=== PATIENT | female | born 1970 | race Caucasian/White ===

== ENCOUNTER → 2022-08-25 | Outpatient (CLI) | payer OTHER, SELFPAY ==
[2022-08-25 10:35] LABS: Hemoglobin A1c 6.6 % (3.8-5.6)
== END | disposition home or self-care (01) ==
LOC: LAB 09:38
PROVIDERS: PCP Family Medicine; Visit Provider Specialist
DX: E11.9 Type 2 diabetes mellitus without complications (principal)
CPT/HCPCS: 36415; 83036

== ENCOUNTER 2022-10-17 09:00 | Outpatient (RCR) | payer SELFPAY, OTHER ==
--- NOTE | 2022-08-28 10:49 | HP.PTEVAL_ITS ---
Patient's Visit Information SHIVA ZULUAGA is a 51 year old F referred to Physical Therapy by Dr. Joe Martinez MD with a diagnosis of R knee OA. Date of Evaluation: 08/28/22 Physical Therapist: Arnie Peralta DPT, OCS, CSCS - Visit Plan Frequency: 1x/Week Duration: 4-6 Weeks Plan: weekly(pt choice due to travel and cost) x 4-6 to progress HEP and ensure appropriate activity modificaiton. visit2: hs and quad stretches given for HEP and measure ROM R knee to ensure improvement, progress ROM and SLR as needed. visit 3 clamshells, bridges, core strength given as HEP and progress SLR with band or weight. visit 4 attempt WB ex and recheck. May use MH as needed, May do leg pull and mobs if needed. - Subjective R knee pain since November for no apparent reason. Pain 4/10 most of time. Worse with getting out of cahir after a while, and climbing steps. Has lots of steps at home and can do them with rail but they are painful. No other treatments, had xrays showed degeneration bone on bone. No scheduled surgery yet but she will likely need it. No regular exercises. Not employed. Does housework but it hurts and is slow. Is up at night intermittently with pain. Sleep - Pain R knee Pain Intensity (Out of 10): 4 Pain Intensity Range: 4, 7 - Objective R knee. Walks I with R antalgia [facility] bed I with UE. Steps are reciprocal up but pain R and needs rail. Descending uses L only due to pain. AROM R knee is -8 extension to 95 flexion and painful end ranges. L knee is 0-118. Strength hip is 3+ abd and ext and 4- flexion, no pain. ankle strength is 4/5 B. Knee strength is 3 R knee ext and painful and 3+ flexion with pain. L knee is 4. quad and HS and gastroc are max tight. - ant drawer and post sag. + bounce home adn patellar grind. - Balance/Special Test Scores Functional Gait Assessment Score: 28 % Disability: 6.6700 Lower Extremity Functional Score: 41 - Goals Goal 1:: 0-110 AROM to help with steps and gait Goal Time Frame: 4-6 Weeks Goal 2:: Patient feel pain 0-2/10 at worst and 60% better Goal Time Frame: 4-6 Weeks Goal 3:: LEFS score 50 Goal Time Frame: 4-6 Weeks Goal 4:: vaccuum without increased pain Goal Time Frame: 4-6 Weeks Goal 5:: I activitiy modificaitona nd ex to manage bone on bone condition Goal Time Frame: 4-6 Weeks - Rehabilitation Potential Physical Therapy Diagnosis: R knee OA and limtied ROM/strength. Rehabilitation Potential: Questionable - Anticipated Interventions Patient/Client Instruction: Educate patient on: Condition, Plan of Care For the Purpose of:: To decrease pain, To increase ROM, To improve muscle performance and motor function Therapeutic Exercise to Include: Strength training, Flexibilty training, Passive ROM, Active ROM For the Purpose of:: To decrease pain, To increase ROM, To improve muscle performance and motor function, To increase tolerance to activity/condition/position Thank you for the opportunity to evaluate your patient. For Medicare and Medicare HMO plans, please review the plan of care and approve it. It will need to be FAXED BACK to us at [phone] for Medicare purposes. For Medicare only, by signing this I certify the plan of care. Please let me know if there are questions or concerns regarding this plan of care. Physician Signature: Date:
--- NOTE | 2022-09-19 12:51 | HP.PTREVAL_ITS ---
Dr. Joe Martinez MD, It has been my pleasure to treat SHIVA ZULUAGA over the last 4 visits for R knee OA. Please see the progress note below for an update on the physical therapy plan of care! Subjective: Getting better, I can walk further without as much pain. Can walk a half mile before needs to sit. improving grocery trips. pain 5/10 with 30 mi nutes of walking but goes away in 5 minutes. Getting up is still stiff. Sleeping well. Nothing else scheduled with Dr. Martinez.Planning on TKA 11/26. Objective/Function: Walking well with mild antalgia today, since patient is scheduled for surgery, will need instruction on walker and steps etc. feels ready to continue via HEp for activity modificaiton stretch and strengthen. Plan Plan: f/u one month to ensure ex going well and pt to call prior if pain worsens. Will need wh walker instruct, stair instruct and final msmts in prep for surgery in November. Balance/Gait/Functional tests - Balance/Special Test Scores Functional Gait Assessment Score: 28 % Disability: 6.6700 Lower Extremity Functional Score: 50 Goals Goal 1:: 0-110 AROM to help with steps and gait Goal Time Frame: 4-6 Weeks Goal Progress: ? Goal 2:: Patient feel pain 0-2/10 at worst and 60% better Goal Time Frame: 4-6 Weeks Goal Progress: Goal Met Goal 3:: LEFS score 50 Goal Time Frame: 4-6 Weeks Goal Progress: Goal Met Goal 4:: vaccuum without increased pain Goal Time Frame: 4-6 Weeks Goal Progress: Goal Met Goal 5:: I activitiy modificaitona nd ex to manage bone on bone condition Goal Time Frame: 4-6 Weeks Goal Progress: Goal Met Goal 6:: I wh walker gait for surgery! Goal Time Frame: 4-6 Weeks Goal Progress: NEW GOALK for next sessio Anticipated Interventions Patient/Client Instruction: Educate patient on: Condition, Plan of Care For the Purpose of:: To decrease pain, To increase ROM, To improve muscle performance and motor function Therapeutic Exercise to Include: Strength training, Flexibilty training, Passive ROM, Active ROM For the Purpose of:: To decrease pain, To increase ROM, To improve muscle performance and motor function, To increase tolerance to activity/condition/position Please do not hesitate to contact me at [phone] by phone or if you have questions or concerns regarding this new plan of care! Sincerely, Arnie Peralta, DPT, OCS, CSCS
--- NOTE | 2022-10-17 09:28 | HP.PTDCSUM_ITS ---
It has been my pleasure to treat SHIVA ZULUAGA referred by Dr. Joe Martinez MD, with the diagnosis of R knee OA for a total of 5 visit(s). Discharge Date: 10/17/22 Please see the following information for a summary of their discharge status. Subjective: Knee doing pretty good. Exercises are going well and still challenged. Surgery is November 26. Pain in knee not bad lately, up to 2/10. Walking helps. No walker yet but will get one with wheels. No steps once she enters house. No questions or concerns for the next month. Activities pretty n ormal, just hurt at times...could not mow the lawn if she needed to. R knee Pain Intensity (Out of 10): Unrated % Improvement: 60 Objective/Function: Picked up on gait training very quickly and feels like she can practice a little at home and continue current exercises and get along well. Goal 1:: 0-110 AROM to help with steps and gait Goal Progress: Goal Met Goal 2:: Patient feel pain 0-2/10 at worst and 60% better Goal Progress: Goal Met Goal 3:: LEFS score 50 Goal Progress: Goal Met Goal 4:: vaccuum without increased pain Goal Progress: Goal Met Goal 5:: I activitiy modificaitona nd ex to manage bone on bone condition Goal Progress: Goal Met Goal 6:: I wh walker gait for surgery! Goal Progress: Goal Met Plan: d/c Discharge Comments: pt to have surgery in November If there are questions or concerns regarding this patient's physical therapy, please feel free to call me at [phone]. Thank you for the referral of this patient. Sincerely, Arnie Peralta, DPT, OCS, CSCS Balance/Gait/Functional tests - Balance/Special Test Scores Functional Gait Assessment Score: 28 % Disability: 6.6700 Lower Extremity Functional Score: 50
== END 2022-10-17 19:00 | disposition home or self-care (01) ==
LOC: PT 09:00
PROVIDERS: PCP Family Medicine; Referring Provider Specialist; Visit Provider Specialist
DX: M17.11 Unilateral primary osteoarthritis, right knee (principal); E66.01 Morbid (severe) obesity due to excess calories
CPT/HCPCS: 97110; 97161; 97530

== ENCOUNTER → 2022-11-17 | Outpatient (CLI) | payer OTHER, SELFPAY ==
--- NOTE | 2022-11-10 12:52 | HP.PCM_ITS ---
History and Physical History and Physical? Patient Name: Nohemi English : 1970 From:? JANY WOODS PA-C? DATE OF SURGERY:? 11/26/2022 SCHEDULED PROCEDURE:? Right total knee arthroplasty HISTORY OF PRESENT ILLNESS: Preoperative history and physical exam was performed on November 10, 2022.? This is a 51-year-old female who has been having ongoing pain for over 1 year with her right knee.? There is been no trauma or injury.? Her pain as being constant, aching, sharp, sore.? She has increased pain with going up and down stairs, walking, standing and sitting.? She does have start up pain.? Pain is increased with activities of daily living including any outside work such as mowing the lawn.? Patient states the pain occasionally wakes her at nighttime.? She has attempted conservative measures including rest and ice with no relief in symptoms.? She has tried heat and elevation with minimal relief.? She has tried home exercises with minimal relief.? She has tried acute care nurse practitioner without relief in symptoms.? She has tried [id number]-[id number] medications including topical ointments, anti-inflammatory supplements and Tylenol with minimal relief.? She has medical history pertinent for hypertension and type 2 diabetes mellitus.? She denies past history of surgery on the right knee.? After failing conservative measures and discussing treatment options with Dr. Joe Martinez, the patient does wish to proceed with a right total knee arthroplasty.? We are obtaining surgical clearance from the primary care physician.? She currently denies any recent chest pain, shortness of breath, fevers chills or recent infections.? Patient denies past history of DVT or pulmonary embolism. REVIEW OF SYSTEMS: Review Of Systems: Constitutional: Denies change in appetite, fever and weight change. Cardiovasular: Denies chest pain, heart murmur and irregular heartbeat. Respiratory: Denies cough, pneumonia, shortness of breath, tuberculosis and whe ezing. Gastrointestinal: Denies constipation, diarrhea, heartburn, nausea, rectal itching, bloody stools and vomiting. Musculoskeletal: Denies leg swelling, pain, trouble walking and weakness. Skin: Denies Raynaud's, history of shingles and tattoo. Neurological: Denies ambulatory dysfunction, dizziness, numbness/tingling and tremor. Psychiatric: Denies anxiety, insomnia and stress. Hematologic/Lymphatic: Denies anemia, bleeding/bruising tendency and past transfusion. Reviewed, no changes. PAST MEDICAL HISTORY: Advance Care Plan: No Advance Directives Effective Date: 08/25/2022 Past Medical History: Medical Problems: Diabetes, High Blood Pressure Accidents: None Surgical Hx: Gallbladder - (2006) [facility] ? Anesthesia Complications: None Assistive Devices: Glasses Reviewed and updated. SOCIAL HISTORY: Social History: Marital: .Occupation: Homemaker.Work Status: Currently Working.Hand Dominance: Right-handed. Personal Habits:? Cigarette Use: Never Smoked Cigarettes.Smokeless Tobacco: Never Used Smokeless Tobacco.E-Cigarette Use: Never used.Alcohol: Denies use.Drug Use: Denies Use.Enjoy Exercising: Exercises 1-3 X/Week. Reviewed, no changes. VITALS: Ht: 63 Wt: 228lb Wt k.421 BMI: 40.4 BP: 142/84 Pulse: 83 Resp: 16 T: 97.2 T: 36.2C Pain Level: 3 O2SatR: 98 ALLERGIES: No Known Drug Allergy? MEDICATIONS: Insulin Aspart 100 Unit/ML 10mL DAILY, Lisinopril 5 mg one tab PO once daily- PT unsure of correct dosage PRE-OP EXAM:? General appearance:NORMAL? ? ? Other: Eyes: Conjunctivae and lids: NORMAL? Pupils: ERR Ears, Nose, Mouth, and Throat: NORMAL? Other: Inspection of lips, teeth and gums: NORMAL? ?Other: Neck: Examination of neck: no masses noted. Respiratory: Assessment of respiratory effort: NORMAL? ?Other: ?Auscultation of lungs: clear to auscultation no wheezes, rhonchi or rales. Cardiovascular:? Auscultation of heart: regular rate and rhythm, no murmurs, gallops or rubs. PHYSICAL EXAMINATION: Right knee is without erythema or signs of infection.? Patient does walk with an antalgic gait.? There is tenderness to palpation along the medial joint line.? She has fixed varus alignment.? Moderate effusion.? Range of motion: Lacks 10 full extension to 90 flexion.? Sensation intact to light touch. IMAGING STUDIES: Previous x-rays of the right knee reveal varus alignment with medial joint space narrowing, subchondral sclerosis, osteophyte formation consistent with severe stage IV erosive right knee osteoarthritis. IMPRESSION: 1.? Severe right knee osteoarthritis with varus alignment 2.? Type 2 diabetes mellitus 3.? Hypertension PLAN: Dr. Joe Martinez did discuss and review with the patient all treatment options including surgical versus nonsurgical options.? Patient does wish to proceed with the above-stated procedure.? Potential risks, benefits, and complications of the procedure were discussed in detail including but not limited to , infection, nerve and blood vessel damage, persistent pain, numbness, tingling, paresthesias, blood clot, pulmonary embolism, and requirement for possible further surgery.? The patient expressed full understanding and has no further questions for the doctor.? Patient does agree to proceed with the above-stated procedure and has signed the surgery consent form. This dictation was created using voice recognition software. Phonetic and/or grammatical errors may exist. ___? I have re-examined the patient.? There are no clinical changes since date of exam. ___? See progress notes for changes. ___? Dictated on admission Date: ? ? ?Time: Signature:
--- NOTE | 2022-11-17 07:46 | EKG12_ITS ---
Test Reason : PRE-OP Blood Pressure : / mmHG Vent. Rate : 079 BPM Atrial Rate : 079 BPM P-R Int : 176 ms QRS Dur : 086 ms QT Int : 384 ms P-R-T Axes : 050 000 054 degrees QTc Int : 440 ms Normal sinus rhythm Normal ECG Confirmed by DELIA CABEZAS, ELIGIO ([id number]), story editor MILES HERNANDEZ ([id number]) on 11/19/2022 10:08:32 AM Referred By: ZENAIDA Confirmed By:MESSI LIN MD
[2022-11-17 10:10] LABS: Absolute Lymphocyte Count 3.08 X10^3/uL (0.83-4.51); Absolute Neutrophil Count 3.8 X10^3/uL (2.0-7.7); Basophil# 0.03 X10^3/uL; Basophil% 0.4 % (0-1); Eosinophil# 0.12 X10^3/uL; Eosinophils% 1.6 % (0-5); Hematocrit 41.4 % (37-47); Hemoglobin 13.6 g/dL (12.0-15.0); Lymphocyte # 3.08 X10^3/ul (0.83-4.51); Lymphocyte % 41.8 % (19-41); Mean Corp Hgb Conc 32.9 g/dL (32-36); Mean Corpuscular Hgb 28.8 pg (27.0-32.0); Mean Corpuscular Volume 87.7 fL (81-99); Mean Platelet Vol. 10.4 fl (6.2-12.0); Monocyte# 0.36 X10^3/uL; Monocyte% 4.9 % (0-10); NRBC Flagged by Analyzer 0 % (0-5); Neutrophil # 3.75 X10^3/uL (2.7-7.7); Platelet Count 301 K/mm3 (150-450); RBC Distribution Width CV 13.5 % (11.6-14.6); RBC Distribution Width SD 43.7 fl (35.1-43.9); Red Blood Count 4.72 M/mm3 (4.2-5.4); White Blood Count 7.4 K/mm3 (4.4-11.0)
[2022-11-17 10:58] LABS: Hemoglobin A1c 9.9 % (3.8-5.6)
[2022-11-17 11:00] LABS: Albumin, Serum 3.6 g/dL (3.2-5.0); Anion Gap 5 (5-15); BUN 21 mg/dL (7-18); Calcium,Total 9.4 mg/dL (8.5-10.1); Chloride 109 mmol/L (98-107); Creatinine, Serum 0.81 mg/dL (0.55-1.02); EST Glomerular Filtration Rate 79 mL/min (>60); Est Glom Filt Rate - Afr Amer 95 mL/min (>60); Glucose 245 mg/dL (74-106); Potassium 4.3 mmol/L (3.5-5.1); Sodium Level 139 mmol/L (136-145)
[2022-11-17 11:08] LABS: Magnesium 2.1 mg/dL (1.6-2.6)
== END | disposition home or self-care (01) ==
LOC: PAT 12-15 13:47
PROVIDERS: Anesthesiology; PCP Family Medicine; Visit Provider Specialist
DX: Z01.818 Encounter for other preprocedural examination (principal)
CPT/HCPCS: 36415; 80048; 82040; 83036; 83735; 85025; 87081; 93005

== ENCOUNTER → 2022-11-17 | Outpatient (CLI) | payer SELFPAY, OTHER ==
--- NOTE | 2022-11-17 07:43 | CT_ITS ---
PROCEDURE: CT LEFT KNEE WITHOUT CONTRAST REASON FOR EXAM: Male, 58 years old. Preoperative planning for the [employer] Robotic knee surgery. Knee pain. TECHNIQUE: Transaxial CT of the hip, knee and ankle were obtained. Coronal and sagittal reconstruction images of the knee were provided. Individualized dose optimization techniques were used for this CT. COMPARISON: None. FINDINGS: Standard protocol for the preoperative planning for the [employer] robotic knee surgery was performed. There is mild osteoarthrosis of the hip, knee and ankle. CT/Extremity Lower without Contra IMPRESSION: Preoperative [employer] Robotic knee surgical CT evaluation with findings as described above. Electronically Signed: Bryan Tellez, at 9:27 EDT ,
== END | disposition home or self-care (01) ==
PROVIDERS: PCP Family Medicine; Referring Provider Specialist; Visit Provider Specialist
DX: M21.161 Varus deformity, not elsewhere classified, right knee (principal)
CPT/HCPCS: 73700

== ENCOUNTER 2025-02-02 19:26 | Inpatient (IN) | payer OTHER, SELFPAY ==
[2025-02-02 18:36] VITALS: BP 165/72; PULSE 88; RESP 16; TEMP 39; O2SAT 96
--- OUTSIDE RECORDS SUMMARY | 2025-02-02 19:08 | XMS RPT_ITS | CCD ---
Author Organization [facility] Inform ion [facility] CliniSyny Care Team Providers Care Physician Relations Manager Name Role Phone BIANKA VOGEL Attending Unavailable BIANKA VOGEL Consulting Unavailable BIANKA VOGEL Primary Care Unavailable BIANKA VOGEL Admitting Unavailable PROVIDER, UNKNOWN Consulting Unavailable PROVIDER, UNKNOWN Consulting Unavailable PROVIDER, UNKNOWN Consulting Unavailable BIANKA VOGEL Consulting Unavailable JUN PALACIOS MD Attending Darielava ilJUN Dumont MD Primary Care Unava ilable JUN PALACIOS MD Admitting Unava ilable PROVIDER, UNKNOWN Consulting Unavailable PROVIDER, UNKNOWN Consulting Unavailable PROVIDER, UNKNOWN Consulting Unavailable Dr. Bianka Vogel Primary Care Provider Dr. Roberto Carlos Jay Attending Provider Dr. Joe Martinez Referring Provider [phone] Joe Martinez Attending Unavailable Joe Martinez Admitting Unavailable Bianka Vogel Primary Care Unavailable Joe Martinez Attending Unavailable Joe Martinez Referring Unavailable Bianka Vogel Primary Care Unavailable Joe Martinez Attending Unavailable Joe Martinez Referring Unavailable Bianka Vogel Primary Care Unavailable Joe Martinez Attending Unavailable Bianka Vogel Primary Care Unavailable Joe Martinez Referring Unavailable Bianka Vogel Primary Care Unavailable Roberto Carlos Jay Attending UnavailBianka Damon MD Unavailable Adi CARTWRIGHTN, Afsaneh Unavailable Brea CARTWRIGHTN, Alana Unavailable Unavailable Boo Sarmiento MD Unavailable Wendie Mensah PA-C Unavailable [phone] Alma Delia LANDON, Jodi Baker Unavailable Unavail able Hugh CARTWRIGHTN, Ping Unavailable Unavailable Alona FRANCOIS, Miles Unavailable Unavailable Elizabeth LANDON, Radha Villanueva Unavailable Unavailable Salma Breen LPN Unavailable Unavailabl e Unavailable Unavailable Nelida Cesar MA Unavailable Unavailable Medications Current Medications Medication Drug Class(es) Dates Sig (Normalized) Sig (Original) barley extract (2 sources) Non-Standardiz ed Food Allergenic Extract Start: 3 take 1 [tsp_us] by mouth once daily Barley Active 1 tsp SL/PO DAILY November 12, 2022 12:00am Curalin Glucose Support (2 sources) Start: 3 take 1 tablet by mouth once daily Curalin Glucose Support Active 1 TABLET SL/PO DAILY November 12, 2022 12:00am hydroCHLOROthiazide 12.5 mg oral tablet (11 sources) Thiazide Diuretic Start: 5 hydroCHLOROthiazide 12.5 mg tablet ; 1 (one) tablet qam for 0 days Quantity: 90 {Tablet} Refills: 3 Ordered: 25-Oct-2024 MD Bianka Vogel Start: 25-Oct-2024 3 ml insulin glargine 100 unt/ml pen injector (20 sources) Insulin Analog Start: 5 Lantus Solostar U-100 Insulin 100 unit/mL (3 mL) subcutaneous pen ; 80 units Solution Pen-injector daily for 0 days Quantity: 5 {Each} Refills: 0 Ordered: 27-Jan-2025 MD Bianka Vogel Start: 27-Jan-2025 Start: 11-21-2024 Lantus Solosta r U-100 Insulin 100 unit/mL (3 mL) subcutaneous pen ; 80 units Solution Pen-injector daily for 0 days Quantity: 5 {Each} Refills: 2 Ordered: 21-Nov-2024 MD Bianka Vogel Start: 21-Nov-2024 Start: 10-25-2024 Lantus Solosta r U-100 Insulin 100 unit/mL (3 mL) subcutaneous pen ; 80 units Solution Pen-injector daily for 0 days Quantity: 5 {Each} Refills: 3 Ordered: 25-Oct-2024 MD Bianka Vogel Start: 25-Oct-2024 Start: 08-19-2024 Lantus Solosta r U-100 Insulin 100 unit/mL (3 mL) subcutaneous pen ; 60 units Solution Pen-injector daily for 0 days Quantity: 5 {Each} Refills: 3 Ordered: 19-Aug-2024 MD Bianka Vogel Start: 19-Aug-2024 Start: 05-02-2024 Lantus Solosta r U-100 Insulin 100 unit/mL (3 mL) subcutaneous pen ; 60 units Solution Pen-injector daily for 0 days Quantity: 5 {Each} Refills: 3 Ordered: 02-May-2024 MD Bianka Vogel Start: 02-May-2024 Start: 04-19-2024 Lantus Solosta r U-100 Insulin 100 unit/mL (3 mL) subcutaneous pen ; 60 units Solution Pen-injector daily for 0 days Quantity: 5 {Each} Refills: 3 Ordered: 19-Apr-2024 MD Bianka Vogel Start: 19-Apr-2024 Start: 01-04-2024 Lantus Solosta r U-100 Insulin 100 unit/mL (3 mL) subcutaneous pen ; 60 units Solution Pen-injector daily for 0 days Quantity: 5 {Each} Refills: 3 Ordered: 04-Jan-2024 MD Bianka Vogel Start: 04-Jan-2024 Comments: dose change 12/03/2023 Start: 12-03-2023 Lantus Solosta r U-100 Insulin 100 unit/mL (3 mL) subcutaneous pen ; 60 units Solution Pen-injector daily for 0 days Quantity: 5 {Each} Refills: 3 Ordered: 03-Dec-2023 MD Bianka Vogel Start: 03-Dec-2023 Comments: dose change 12/03/2023 Start: 10-05-2023 Lantus Solosta r U-100 Insulin 100 unit/mL (3 mL) subcutaneous pen ; 50 units Solution Pen-injector daily for 0 days Quantity: 5 {Each} Refills: 3 Ordered: 05-Oct-2023 MD Bianka Vogel Start: 05-Oct-2023 Start: 08-24-2023 Lantus Solosta r U-100 Insulin 100 unit/mL (3 mL) subcutaneous pen ; 50 units Solution Pen-injector daily for 0 days Quantity: 5 {Each} Refills: 3 Ordered: 24-Aug-2023 MD Bianka Vogel Start: 24-Aug-2023 Start: 11-12-2022 Insulin Glargi ne Active 14 UNIT SC EVERY EVENING November 12, 2022 12:00am Comment on above: dose change 24 hr metoprolol succinate 50 mg extended release oral tablet (20 sources) beta-Adrenergic Brendan Start: 11-15-2024 metoprolol succinate ER 50 mg tablet,extended release 24 hr ; 1 (one) tablet daily for 0 days Quantity: 90 {Tablet} Refills: 0 Ordered: 15-Nov-2024 MD Bianka Vogel Start: 15-Nov-2024 Start: 08-08-2024 metoprolol suc cinate ER 50 mg tablet,extended release 24 hr ; 1 (one) tablet daily for 0 days Quantity: 90 {Tablet} Refills: 0 Ordered: 08-Aug-2024 MD Bianka Vogel Start: 08-Aug-2024 Start: 05-18-2024 metoprolol suc cinate ER 50 mg tablet,extended release 24 hr ; 1 (one) tablet daily for 0 days Quantity: 90 {Tablet} Refills: 0 Ordered: 18-May-2024 MD Bianka Vogel Start: 18-May-2024 Start: 02-05-2024 metoprolol suc cinate ER 50 mg tablet,extended release 24 hr ; 1 (one) tablet daily for 0 days Quantity: 90 {Tablet} Refills: 0 Ordered: 05-Feb-2024 MD Bianka Vogel Start: 05-Feb-2024 Start: 08-26-2023 metoprolol suc cinate ER 50 mg tablet,extended release 24 hr ; 1 (one) tablet daily for 0 days Quantity: 90 {Tablet} Refills: 1 Ordered: 26-Aug-2023 MD Bianka Vogel Start: 26-Aug-2023 Comments: med change due to kim cough. she will not need the lisinopril refill. Comment on above: med change due to ac e cough. she will not need the lisinopril refill. Completed/Discontinued Medications Medication Drug Class(es) Dates Sig (Normalized) Sig (Original) acetaminophen 650 mg / propoxyphene napsylate 100 mg oral tablet (20 sources) Opioid Agonist Start: 07-03-2010 End: 02-26-2016 take 1 tablet by mouth once daily as needed DARVOCET-N 100, 100-650MG (Oral Tablet) ; 1 (one) Tab four times daily, as needed for 0 days Quantity: 12 {Tabs} Refills: 0 Ordered: 03-Jul-2010 Start: 03-Jul-2010 End: 26-Feb-2016 Status: Discontinued Comments: Medication taken as needed. This order discontinued per [facility]. Comment on above: Medication taken as needed. This order discontinued per [facility]. amoxicillin 500 mg oral tablet (20 sources) Penicillin-class Antibacterial Start: 02-26-2016 End: 03-07-2016 take 1 tablet by mouth three times daily AMOXICILLIN, 500MG (Oral Tablet) ; 1 Tablet Tablet three times daily for 10 days Quantity: 30 {Tablet} Refills: 0 Ordered: 26-Feb-2016 PRISCILA Breen Start: 26-Feb-2016 End: 07-Mar-2016 Status: Inactive amoxicillin 875 mg / clavulanate 125 mg oral tablet (20 sources) Penicillin-class Antibacterial Start: 10-20-2019 End: 01-16-2020 take 1 tablet by mouth twice daily Amoxicillin-Pot Clavulanate 875-125 MG Oral Tablet ; 1 (one) Tablet bid for 0 days Quantity: 20 {Tablet} Refills: 0 Ordered: 16-Jan-2020 PRISCILA Joshi Start: 20-Oct-2019 End: 16-Jan-2020 Status: Inactive ciprofloxacin 500 mg oral tablet (20 sources) Quinolone Antimicrobial Ciprofloxacin HCl 500 MG Oral Tablet ; (500 MG) Status: Inactive codeine phosphate 2 mg/ml / promethazine hydrochloride 1.25 mg/ml oral solution (20 sources) Opioid Agonist, Phenothiazine Start: 10-24-2019 End: 01-16-2020 take 5 mL by mouth once daily at bedtime Promethazine-Codei ne 6.25-10 MG/5ML Oral Solution ; 5 Milliliter qhs for 0 days Quantity: 25 {Milliliter} Refills: 0 Ordered: 16-Jan-2020 PRISCILA Joshi Start: 24-Oct-2019 End: 16-Jan-2020 Status: Inactive hydrocortisone 10 mg/ml / neomycin 3.5 mg/ml / polymyxin b 24547 unt/ml otic solution (20 sources) Aminoglycoside Antibacterial, Polymyxin-class Antibacterial, Corticosteroid Start: 02-26-2016 End: 03-07-2016 CORTISPORIN, 3.5-84038-2 (Otic Solution) ; 4 Drop(s) Drop(s) four times daily for 10 days Quantity: 10 {Milliliter} Refills: 0 Ordered: 26-Feb-2016 PRISCILA Breenfer Start: 26-Feb-2016 End: 07-Mar-2016 Status: Inactive isopropyl alcohol 0.7 ml/ml medicated pad (20 sources) Easy Touch Alcoh ol Prep Medium 70 % Pad ; (70 %) Status: Inactive lisinopril 20 mg oral tablet (20 sources) Angiotensin Converting Enzyme Inhibitor Start: 04-27-2023 End: 07-11-2024 lisinopriL 20 mg tablet ; 1 (one) Tablet daily for 30 days Quantity: 30 {Tablet} Refills: 5 Ordered: 11-Jul-2024 PRISCILA Joshi Start: 27-Apr-2023 End: 11-Jul-2024 Status: Discontinued Start: 11-12-2022 take 20 mg by mouth once daily Lisinopril Active 20 MG PO DAILY November 12, 2022 12:00am Start: 02-23-2019 End: 09-01-2019 take 1 tablet by mouth once daily Lisinopril 10 MG Oral Tablet ; 1 (one) Tablet Tablet daily for 0 days Quantity: 30 {Tablet} Refills: 5 Ordered: 01-Sep-2019 PRISCILA Joshi Start: 23-Feb-2019 End: 01-Sep-2019 Status: Discontinued End: 07-24-2021 Lisinopril 5 MG Oral Tablet ; (5 MG) End: 24-Jul-2021 Status: Discontinued metFORMIN hydrochloride 1000 mg oral tablet (20 sources) Biguanide Start: 03-31-2019 End: 09-01-2019 take 1 tablet by mouth every twelve hours metFORMIN HCl 1000 MG Oral Tablet ; 1 (one) Tablet q12 hrs for 0 days Quantity: 60 {Tablet} Refills: 5 Ordered: 01-Sep-2019 PRISCILA Joshi Start: 31-Mar-2019 End: 01-Sep-2019 Status: Discontinued End: 07-24-2021 metFORMIN HCl 500 MG Oral Ta blet ; (500 MG) End: 24-Jul-2021 Status: Discontinued methylPREDNISolone 4 mg oral tablet (20 sources) Corticosteroid Start: 08-24-2017 End: 08-30-2017 Medrol 4 MG Oral Tablet Therapy Pack ; 1 Tab as directed for 6 days Quantity: 1 {Dose_Pack} Refills: 0 Ordered: 24-Aug-2017 LEWIS Mensah Start: 24-Aug-2017 End: 30-Aug-2017 Status: Inactive oxyCODONE hydrochloride 5 mg oral tablet (20 sources) Opioid Agonist Start: 01-28-2019 End: 03-31-2019 oxyCODONE HCl 5 MG Oral Tablet ; 1 (one) Tablet Tablet prn severe pain for 0 days Quantity: 6 {Tablet} Refills: 0 Ordered: 31-Mar-2019 PRISCILA Joshi Start: 28-Jan-2019 End: 31-Mar-2019 Status: Inactive semaglutide 3 mg oral tablet (18 sources) Start: 07-11-2024 End: 10-25-2024 semaglutide 3 mg tablet ; 1 (one) tablet daily for 0 days Quantity: 30 {Tablet} Refills: 3 Ordered: 25-Oct-2024 MD Bianka Vogel Start: 11-Jul-2024 End: 25-Oct-2024 Status: Inactive sulfamethoxazole 800 mg / trimethoprim 160 mg oral tablet (20 sources) Dihydrofolate Reductase Inhibitor Antibacterial, Sulfonamide Antimicrobial Start: 07-03-2010 End: 07-13-2010 take 1 tablet by mouth twice daily BACTRIM DS, 800-160MG (Oral Tablet) ; 1 Tab two times daily for 10 days Quantity: 20 {Tab} Refills: 0 Ordered: 03-Jul-2010 MD Bianka Vogel Start: 03-Jul-2010 End: 13-Jul-2010 Status: Inactive Problems Active Problems Problem Classification Problem Date Documented Date Episodic/Chronic Abdominal pain (20 sources) Left flank pain; Translations: [Unspecified abdominal pain] 02-23-2019 Episodic Chronic kidney disease (20 sources) Chronic kidney disease stage 3B ; Translations: [Chronic kidney disease, Stage III (moderate)] 04-10-2023 Chronic Comment on above: follows with nephboris porsha saw nephrology once, they said she did not need to come back unless she had problems (per her report) Diabetes mellitus with complications (20 sources) Diabetic peripheral neuropathy; Translations: [Type 2 diabetes mellitus with diabetic polyneuropathy] 04-10-2023 Chronic Diabetes mellitus without complication (20 sources) Type 2 diabetes mellitus without complications; Translations: [Diabetes mellitus] Onset: 09-07-2022 07-24-2021 Chronic Comment on above: Lantus Diabetes mellitus without complication (20 sources) Glycosuria; Translations: [Glycosuria] 01-28-2019 Episodic Diabetes mellitus without complication (20 sources) Diabetes mellitus without complication 10-23-2021 Essential hypertension (20 sources) Hypertensive disorder; Translations: [Essential (primary) hypertension] 04-10-2023 Chronic Comment on above: lisinopril, metoprol ol succinate metoprolol succinate Osteoarthritis (1 source) Unilateral primary osteoarthritis, right knee; Translations: [Unilateral primary osteoarthritis, right knee] Onset: 10-21-2022 Chronic Other acquired deformities (1 source) Varus deformity, not elsewhere classified, right knee; Translations: [Varus deformity, not elsewhere classified, right knee] Onset: 11-24-2022 Episodic Other aftercare (20 sources) Post-discharge follow-up; Translations: [Encounter for follow-up examination after completed treatment for conditions other than malignant neoplasm] 03-27-2021 Episodic Other complications of (20 sources) complications 09-01-2019 Episodic Comment on above: Gestational diabetes . Other ear and sense organ disorders (20 sources) Impacted cerumen of bilateral ears; Translations: [Impacted cerumen, bilateral] 09-17-2022 Episodic Other ear and sense organ disorders (20 sources) Impacted cerumen in right ear; Translations: [Impacted cerumen, right ear] 03-04-2016 Episodic Other lower respiratory disease (20 sources) Angiotensin-converti ng-enzyme inhibitor adverse reaction; Translations: [Cough] 08-26-2023 Episodic Other nervous system disorders (20 sources) Bilateral carpal tunnel syndrome; Translations: [Carpal tunnel syndrome, bilateral upper limbs] 04-10-2023 Chronic Other non-traumatic joint disorders (3 sources) Pain in right knee; Translations: [Pain in right knee] Onset: 03-21-2022 Episodic Other non-traumatic joint disorders (20 sources) Pain in unspecified knee; Translations: [Pain in joint, lower leg] 04-10-2023 Episodic Other nutritional; endocrine; and metabolic disorders (1 source) Morbid (severe) obesity due to excess calories; Translations: [Morbid (severe) obesity due to excess calories] Onset: 10-21-2022 Chronic Other nutritional; endocrine; and metabolic disorders (20 sources) Body mass index 30+ - obesity; Translations: [Body mass index (BMI) 36.0-36.9, adult] 10-23-2021 Chronic Other nutritional; endocrine; and metabolic disorders (20 sources) Nephrocalcinosis; Translations: [Other disorders of calcium metabolism] 04-10-2023 Chronic Other screening for suspected conditions (not mental disorders or infectious disease) (20 sources) Patient encounter status; Translations: [Encounter for screening for lipoid disorders] 10-25-2024 Episodic Other skin disorders (20 sources) Neck swelling; Translations: [Localized swelling, mass and lump, neck] 08-24-2017 Episodic Other upper respiratory infections (20 sources) Acute pharyngitis; Translations: [Acute pharyngitis, unspecified] 08-07-2010 Episodic Pneumonia (except that caused by tuberculosis or sexually transmitted disease) (20 sources) Community acquired pneumonia; Translations: [Pneumonia, unspecified organism] 10-20-2019 Episodic Residual codes; unclassified (20 sources) Immunization not carried out because of patient refusal; Translations: [Vaccination not carried out because of patient refusal] 07-24-2021 Episodic Residual codes; unclassified (20 sources) Influenza vaccination declined; Translations: [Immunization not carried out because of patient refusal] 04-10-2023 Episodic Residual codes; unclassified (20 sources) Noncompliance with medication regimen; Translations: [Personal history of noncompliance with medical treatment, presenting hazards to health] 04-10-2023 Episodic Residual codes; unclassified (20 sources) Non-smoker; Translations: [Other specified health status] 04-10-2023 Episodic Thyroid disorders (20 sources) Pain in thyroid; Translations: [Other specified disorders of thyroid] 08-24-2017 Episodic Unclassified (20 sources) Number of Children 09-01-2019 Comment on above: 4. Unclassified (20 sources) Number of Pregnancies 09-01-2019 Comment on above: 4. Unclassified (20 sources) Vaginal deliveries 09-01-2019 Comment on above: 4. Unclassified (20 sources) Follow up for multiple chronic conditions - The patient is here for follow-up of diabetes. The patient always takes the prescribed medications. No side effects noted. The patient has an active lifestyle but no regular exercise program. The patient's glucose levels are monitored daily. 04-10-2023 Unclassified (20 sources) Follow up for multiple chronic conditions - The patient is here for follow-up of diabetes. The patient always takes the prescribed medications. No side effects noted. The patient has an active lifestyle but no regular exercise program. The patient's glucose levels are monitored daily. Note for Multiple chronic conditions follow-up: -Had planned knee replacement that was cancelled due to sudden change in a1c level preventing the surgery. Is eating more salad and less sugar and PT helped enough that she walks more. 01-07-2023 Unclassified (20 sources) BS too high - Pt was scheduled for Right knee surgery With Dr. Martinez pt had lab s done 4. and A1c was 9.9they cancelled surgery due to thatpt said the only change was a bone vitamin she was takingher sugar has been running in the 300's for the last few months 11-28-2022 Unclassified (20 sources) Follow up for multiple chronic conditions - The patient is here for follow-up of diabetes. The patient always takes the prescribed medications. No side effects noted. The patient has an active lifestyle but no regular exercise program. The patient's glucose levels are monitored daily (checks right before lunch. IN past month is 240's and she does not know why). Note for Multiple chronic conditions follow-up: -has right knee pain and plans right knee replacement at [facility] in November. 09-17-2022 Unclassified (20 sources) Follow up from hospital stay - Name of Hospital: . Date of Admission: 03/19/2021. Date of Discharge: 03/21/2021. The patient was hospitalized for infection. Patient was discharged to home. Note for Follow up from hospital stay: -Started with tooth infection in February. Was on atb. Never recovered well and was not eating well. She became ill with a fever and went to ED again and discovered pyelonephritis. She also had a nosebleed that had to be cauterized and packed by ENT.She is seeing quality control scientist next week to help improve her diet and reduce her blood sugar. She wants to d/c the insulin as soon as she can. 03-27-2021 Unclassified (20 sources) Follow up for multiple chronic conditions - The patient is here for follow-up of diabetes. The patient usually takes the prescribed medications. No side effects noted (she did not take Lisinopril as she was not certain it was necessary). The patient has an active lifestyle but no regular exercise program. The patient's glucose levels are monitored on rare occasion (she bought a glucometer but it was difficult for her to use.) and out of office blood pressure checks occur rarely. The patient states that weight has decreased. 05-23-2019 Unclassified (20 sources) Follow up for multiple chronic conditions - The patient is here for follow-up of diabetes. The patient always takes the prescribed medications. No side effects noted. The patient has an active lifestyle but no regular exercise program. The patient's glucose levels are monitored on rare occasion, out of office blood pressure checks occur rarely and dietary compliance is good with close adherance to recommendations. The patient states that pain is generally stable, weight has increased, mood is unchanged, sleep patterns have improved and headaches have been noticed occasionally. The patient states that the disease has no overall impact. 02-23-2019 Unclassified (20 sources) Follow up for multiple chronic conditions - The patient is here for follow-up of diabetes. The patient always takes the prescribed medications. No side effects noted. The patient has an active lifestyle but no regular exercise program. The patient's glucose levels are monitored daily (before lunch). Note for Multiple chronic conditions follow-up: -Is following intermittent fasting. 08-26-2023 Unclassified (1 source) Follow up for multiple chronic conditions - The patient is here for follow-up of diabetes. The patient always takes the prescribed medications. No side effects noted. The patient has an active lifestyle but no regular exercise program. The patient's glucose levels are monitored daily (before lunch). Note for Multiple chronic conditions follow-up: -Is following intermittent fasting. MONA 6 months ago. 02-22-2024 Unclassified (20 sources) Follow up for multiple chronic conditions - The patient is here for follow-up of diabetes. The patient always takes the prescribed medications. No side effects noted. The patient has an active lifestyle but no regular exercise program. The patient's glucose levels are monitored daily (before lunch) and out of office blood pressure checks occur rarely. The patient states that weight has decreased. Note for Multiple chronic conditions follow-up: -Is following intermittent fasting. MONA 6 months ago. 02-22-2024 Unclassified (18 sources) Follow up for multiple chronic conditions - The patient is here for follow-up of diabetes. The patient always takes the prescribed medications. No side effects noted. The patient has an active lifestyle but no regular exercise program. The patient's glucose levels are monitored daily (before lunch) and out of office blood pressure checks occur rarely. The patient states that weight has decreased. Note for Multiple chronic conditions follow-up: -Is following intermittent fasting. States gets her insulin ready and she cannot verify the dosage. She took home a loaner bp cuff but it didn't work. I suspect the cuff was not the correct size for her arm.She did not know it was necessary for annual eye exam and has not scheduled. She tries to walk every other day but her right knee hurts and it is difficult to do. 07-11-2024 Unclassified (12 sources) Follow up for multiple chronic conditions - The patient is here for follow-up of diabetes. The patient always takes the prescribed medications. No side effects noted. The patient has an active lifestyle but no regular exercise program. The patient's glucose levels are monitored daily (before lunch) and out of office blood pressure checks occur rarely. The patient states that weight has decreased. Note for Multiple chronic conditions follow-up: -Is following [employer] Diet. States gets her insulin ready and she cannot verify the dosage. Her knee pain is bothering her. She could not afford the semeglutide pills. 10-25-2024 Urinary tract infections (20 sources) Pyelonephritis; Translations: [Tubulo-interstitial nephritis, not specified as acute or chronic] 03-27-2021 Episodic Past or Other Problems Problem Classification Problem Date Documented Da te Episodic/Chronic Unclassified (20 sources) Follow up for multiple chronic conditions - The patient is here for follow-up of diabetes. The patient has stopped the recommended medications (lisinopril makes her feel funny and she started a natural product in lieu of the metformin.). The patient has an active lifestyle but no regular exercise program. The patient's glucose levels are monitored several time(s) per day. The patient states that weight has increased. 07-24-2021 Unclassified (20 sources) Cold Symptoms - Symptoms include scratchy throat, dry cough, fever and general malaise. The onset was sudden 2 week(s) ago. The symptoms occur intermittently. The patient describes this as moderate in severity and worsening (was getting better). Current treatment includes rest, increased fluid intake, humidifier use and home remedies. Risk factors do not include smoking. The patient has been exposed to an individual with similar symptoms. 10-20-2019 Unclassified (20 sources) Follow up for multiple chronic conditions - The patient is here for follow-up of diabetes. The patient has stopped the recommended medications (is using AIM products). The patient has an active lifestyle but no regular exercise program. The patient's glucose levels are monitored on rare occasion (she bought a glucometer but it was difficult for her to use.) and out of office blood pressure checks occur rarely. The patient states that weight has decreased. 09-01-2019 Unclassified (20 sources) Abdominal pain - The onset of the abdominal pain has been sudden and has been occurring in a persistent pattern for 5 days. The pain is described as a mild dull ache. The pain is located in the left lower quadrant. The symptoms have no relieving factors. The symptoms have been associated with constipation, diarrhea and vaginal discharge, while the symptoms have not been associated with dysuria, fever or hematuria. 01-28-2019 Unclassified (20 sources) swelling in neck area - Pt. is here today with c/o swelling and redness in neck (frontal, and and laterally at times) with occasional ear discomfort. Pt. has been afebrile. Pt. c/o headache 3 days ago, which resolved with tylenol and motrin. Pt. c/o runny nose, but no other symptoms are noted. Pt. has not eaten anything unusual or different than her regular diet. Pt. states, I don't have a sore throat inside, it just feels swollen. Denies history of thyroid condition 08-24-2017 Unclassified (20 sources) ear recheck - patient is here for a recheck from 02/26/2016 impacted cerum of right ear. She was given amoxicillin and cortisporin. SHe said that she did have some drainage out of the ear. pain has fully resolved 03-04-2016 Unclassified (20 sources) Ear pain - The onset of the pain has been acute and has been occurring in a persistent pattern for 4 days. The course has been increasing. The pain is described as a moderate stabbing and plugged. The pain is described as being located in the external ear and in the inner ear. The pain is felt in the right ear. There has been no associated chills or fever. Note for Ear pain: she has no cold symptoms, no seasonal allergies. States she has had OE before and this is feeling that that 02-26-2016 Unclassified (20 sources) Sore Throat - The onset of the sore throat has been sudden and has been occurring in an increasing pattern for 3 days. The course has been worsening. The sore throat is described as severe. Symptoms include sore throat, fever and headache, but do not include runny nose, nasal congestion, cough or ear pain. The symptoms are aggravated by coughing, eating, swallowing and talking. Relieving factors include drinking liquids, throat lozenges and NSAIDs. Medical History dose not include seasonal allergies, recurrent sinusitis, recurrent strep pharyngitis or tonsillectomy. Note for Sore Throat: son at home has same symptoms, but not as severe. 07-03-2010 Results Test Name Value Interpretation Reference Range Facility ALBUMIN, RANDOM URINE W/CREA [facility] 10-26-2024 ALBUMIN, URINE 0.6 mg/dL Normal See Note: [facility] Comment on above: Result Comment: Refe rence Range: Reference Range Not established Performed By: #### 6 [id number] #### [facility] [address], [address] [place], [place] [id number] Profiling Machine Setup Operator: Bernard Holland MD ALBUMIN/CREATININE RATIO, RANDOM URINE 32 mg/g creat High <30 [facility] Comment on above: Result Comment: The ADA defines abnormalities in albumin excretion as follows: Albuminuria Category Result (mg/g creatinine) Normal to Mildly increased <30 Moderately increased 30-299 Severely increased > OR = 300 The ADA recommends that at least two of three specimens collected within a 3-6 month period be abnormal before considering a patient to be within a diagnostic category. Performed By: #### 6 517 #### [facility] [address], [address] [place], [place] [id number] Profiling Machine Setup Operator: Bernard Holland MD Creatinine (U) [Mass/Vol] 19 mg/dL Low 20-275 [facility] Comment on above: Performed By: #### 6 517 #### [facility] [place] [address], [address] [place] [address] Profiling Machine Setup Operator: Bernard Holland MD Laboratory - Chemistry and C hemistry - challengeon 10-25-2024 Creatinine (U) [Mass/Vol] 19 mg/dL Abnormal 20 - 275 mg/dL [facility], [facility].; [facility], [facility]. Laboratory - Hematology and Cell countson 10-25-2024 HbA1c (Bld) [Mass fraction] 9.3 % Abnormal 4.6 - 7.1 % [facility], [facility].; [facility], [facility]. No Panel Informationon 10-25 ALBUMIN, URINE 0.6 mg/dL Normal [facility], [facility].; [place] [employer] [facility] ALBUMIN/CREATININE RATIO, RANDOM URINE 32 {mg/g_creat} Abnormal [facility], [facility].; [place] [employer] [facility] Laboratory - Hematology and Cell countson 07-11-2024 HbA1c (Bld) [Mass fraction] 9.6 % Abnormal 4.6 - 7.1 % [facility], [facility].; [place] [employer] Laboratory - Hematology and Cell countson 02-22-2024 HbA1c (Bld) [Mass fraction] 8.7 % Abnormal 4.6 - 7.1 % [facility], [facility].; [employer] Laboratory - Hematology and Cell countson 12-02-2023 HbA1c (Bld) [Mass fraction] 9.3 % Abnormal 4.6 - 7.1 % [facility], [facility].; [employer] Laboratory - Chemistry and C hemistry - challengeon 08-26-2023 Albumin/Creatinine DL <= 20 mg/L (U) [Mass ratio] mg/g Normal [facility], [facility].; [place] [employer] Creatinine (U) [Mass/Vol] 50 mg/dL Normal [facility], [facility].; [place] [employer] Laboratory - Hematology and Cell countson 08-26-2023 HbA1c (Bld) [Mass fraction] 9.2 % Abnormal 4.6 - 7.1 % [facility], [facility].; [employer] Laboratory - Urinalysison Protein Ql (U) 100 mg/dL Abnormal [facility].; [facility]. Laboratory - Hematology and Cell countson 04-10-2023 HbA1c (Bld) [Mass fraction] 9.6 % Abnormal 4.6 - 7.1 % [facility]; [facility] Laboratory - Hematology and Cell countson 01-07-2023 HbA1c (Bld) [Mass fraction] 9.4 % Abnormal 4.6 - 7.1 % [facility]; [facility]. MRSA/SAID NASAL SCREENon MRSA+SAID SCRN Reason for Exam: PRE-OP PRE-OP MRSA MRSA Negative S. AUREUS S. aureus Negative Normal [facility] Comment on above: Performed By: #### L 500.2500, L501.9985, L100.0100, L501.1800, M100.651 #### [facility] Laboratory [address] [place], [place], [address] No Panel InformationOrdered By: Dr. Martinez on 11-18-2022 Nasal Screen MRSA/MSSA [facility] 12 Lead EKGon 11-17-2022 12 Lead EKG [facility] [address] [place] [address] 12 Lead EKG 11/17/22 0815 MR#: [id number] Acct: [id number] Name: MABEL ENGLISH Rep #: [id number] : 1970 51 From: Roberto Carlos Jay MD Attending Dr: Dr. Joe Martinez MD Status: PRE HIC Ordering Dr: Joe Martinez MD Date: 11/17/22 Location: [facility] Sex: F C Admitted: Test Reason : PRE-OP Blood Pressure : / mmHG Vent. Rate : 079 BPM Atrial Rate : 079 BPM P-R Int : 176 ms QRS Dur : 086 ms QT Int : 384 ms P-R-T Axes : 050 000 054 degrees QTc Int : 440 ms Normal sinus rhythm Normal ECG Confirmed by DELIA CABEZAS, ELIGIO ([id number]), editorial intern MILES HERNANDEZ ([id number]) on 11/19/2022 10:08:32 AM Referred By: ZENAIDA Confirmed By:MESSI JAY MD 11/19/22 1008 Date Roberto Carlos Jay MD CC: Dr. Bianka Vogel MD; Dr. Joe Martinez MD Signed Normal [facility] Absolute lymphocyte countOrd ered By: Dr. Martinez on 11-17-2022 Lymphocytes Auto (Unsp spec) [#/Vol] 3.08 10*3/uL 0.83-4.51 [facility] Basic Metabolic Profile (BMP )on 11-17-2022 BUN/CRE 26.0 RATIO High 10-20 [facility] Comment on above: Performed By: #### L 500.2500, L501.9985, L100.0100, L501.1800, M100.651 #### [facility] Laboratory [address] [place], [address] CA,Total 9.4 mg/dL Normal 8.5-10.1 [facility] Comment on above: Performed By: #### L 500.2500, L501.9985, L100.0100, L501.1800, M100.651 #### [facility] [address] [place], [address] EST GFR - AA 95 mL/min Normal >60 [facility] Comment on above: Result Comment: Afri can Liberian GFR Calc Performed By: #### L 500.2500, L501.9985, L100.0100, L501.1800, M100.651 #### [facility] [address] [place], [address] GAP 5 Normal 5-15 [facility] Comment on above: Performed By: #### L 500.2500, L501.9985, L100.0100, L501.1800, M100.651 #### [facility] [address] [place], [address] GFR/1.73 sq M.predicted among non-blacks MDRD (S/P/Bld) [Vol rate/Area] 79 mL/min/{1.73_m2} Normal >60 [facility] Comment on above: Result Comment: Non- GFR Calc Performed By: #### L 500.2500, L501.9985, L100.0100, L501.1800, M100.651 #### [facility] [address] [place], [address] Basic Metabolic Profile (BMP )Ordered By: Dr. Martinez on 11-17-2022 CO2 [Moles/Vol] 25.0 mmol/L Normal 21.0-32.0 [facility] Comment on above: Performed By: #### L 500.2500, L501.9985, L100.0100, L501.1800, M100.651 #### [facility] [address] [place], [address] Basophil percentageOrdered B y: Dr. Martinez on 11-17-2022 Basophils/100 WBC (Bld) 0.4 % 0-1 [facility] Chloride [Moles/Vol] 109 mmol/L High 98-107 [facility] Comment on above: Performed By: #### L 500.2500, L501.9985, L100.0100, L501.1800, M100.651 #### [facility] [address] [place], [address] Eosinophils/100 WBC (Bld) 1.6 % 0-5 [facility] Glucose [Mass/Vol] 245 mg/dL High 74-106 [facility] Comment on above: Glucose result great er than or equal to 200 mg/dLsuggests DIABETES MELLITUS per A.D.A. criteria. Result Comment: Gluc ose result greater than or equal to 200 mg/dL suggests DIABETES MELLITUS per A.D.A. criteria. Performed By: #### L 500.2500, L501.9985, L100.0100, L501.1800, M100.651 #### [facility] [address] [place], [address] Neutrophils (Bld) [#/Vol] 3.8 10*3/uL 2.0-7.7 [facility] Neutrophils/100 WBC (Bld) 51.0 % 47-70 [facility] Potassium [Moles/Vol] 4.3 mmol/L Normal 3.5-5.1 [facility] Comment on above: Performed By: #### L 500.2500, L501.9985, L100.0100, L501.1800, M100.651 #### [facility] [address] [place], [address] Sodium [Moles/Vol] 139 mmol/L Normal 136-145 [facility] Comment on above: Performed By: #### L 500.2500, L501.9985, L100.0100, L501.1800, M100.651 #### [facility] [address] [place], [address] WBC (Bld) [#/Vol] 7.4 10*3/uL 4.4-11.0 [facility] Blood erythrocytes count (nu mber/volume)Ordered By: Dr. Martinez on 11-17-2022 RBC (Bld) [#/Vol] 4.72 10*6/uL 4.2-5.4 [facility] Blood hemoglobin measurement (mass/volume)Ordered By: Dr. Martinez on 11-17-2022 Hemoglobin (Bld) [Mass/Vol] 13.6 g/dL 12.0-15.0 [facility] Blood lymphocytes/100 leukoc ytesOrdered By: Dr. Martinez on 11-17-2022 Lymphocytes/100 WBC (Bld) 41.8 % 19-41 [facility] Blood monocytes/100 leukocyt esOrdered By: Dr. Martinez on 11-17-2022 Monocytes/100 WBC (Bld) 4.9 % 0-10 [facility] Blood platelet mean volumeOr dered By: Dr. Martinez on 11-17-2022 Platelet mean volume (Bld) [Entitic vol] 10.4 fL 6.2-12.0 [facility] CBC W/Diff, Automatedon - Absolute Lymph 3.08 X10 3/uL Normal 0.83-4.51 [facility] Comment on above: Performed By: #### L 500.2500, L501.9985, L100.0100, L501.1800, M100.651 #### [facility] [address] [place], [address] Absolute Neut 3.8 X10 3/uL Normal 2.0-7.7 [facility] Comment on above: Performed By: #### L 500.2500, L501.9985, L100.0100, L501.1800, M100.651 #### [facility] [address] [place], [address] Basophils/100 WBC (Bld) 0.4 % Normal 0-1 [facility] Comment on above: Performed By: #### L 500.2500, L501.9985, L100.0100, L501.1800, M100.651 #### [facility] [address] [place], [address] Eosinophils/100 WBC (Bld) 1.6 % Normal 0-5 [facility] Comment on above: Performed By: #### L 500.2500, L501.9985, L100.0100, L501.1800, M100.651 #### [facility] [address] [place], [address] Erythrocyte distribution width (RBC) [Ratio] 13.5 % Normal 11.6-14.6 [facility] Comment on above: Performed By: #### L 500.2500, L501.9985, L100.0100, L501.1800, M100.651 #### [facility] [address] [place], [address] Hematocrit (Bld) [Volume fraction] 41.4 % Normal 37-47 [facility] Comment on above: Performed By: #### L 500.2500, L501.9985, L100.0100, L501.1800, M100.651 #### [facility] [address] [place], [address] Hemoglobin (Bld) [Mass/Vol] 13.6 g/dL Normal 12.0-15.0 [facility] Comment on above: Performed By: #### L 500.2500, L501.9985, L100.0100, L501.1800, M100.651 #### [facility] [address] [place], [address] IG% 0.300 Normal 0.0-0.9 [facility] Comment on above: Result Comment: IG% - Immature Granulocytes (promyelocytes, myelocytes and metamyelocytes) > 1% indicates that a LEFT SHIFT is Present. Performed By: #### L 500.2500, L501.9985, L100.0100, L501.1800, M100.651 #### [facility] [address] [place], [address] Lymphocytes/100 WBC (Bld) 41.8 % High 19-41 [facility] Comment on above: Performed By: #### L 500.2500, L501.9985, L100.0100, L501.1800, M100.651 #### [facility] [address] [place], [address] MCH (RBC) [Entitic mass] 28.8 pg Normal 27.0-32.0 [facility] Comment on above: Performed By: #### L 500.2500, L501.9985, L100.0100, L501.1800, M100.651 #### [facility] [address] [place], [address] MCHC (RBC) [Mass/Vol] 32.9 g/dL Normal 32-36 [facility] Comment on above: Performed By: #### L 500.2500, L501.9985, L100.0100, L501.1800, M100.651 #### [facility] [address] [place], [address] MCV (RBC) [Entitic vol] 87.7 fL Normal 81-99 [facility] Comment on above: Performed By: #### L 500.2500, L501.9985, L100.0100, L501.1800, M100.651 #### [facility] [address] [place], [address] Monocytes/100 WBC (Bld) 4.9 % Normal 0-10 [facility] Comment on above: Performed By: #### L 500.2500, L501.9985, L100.0100, L501.1800, M100.651 #### [facility] [address] [place], [address] Neutrophils/100 WBC (Bld) 51.0 % Normal 47-70 [facility] Comment on above: Performed By: #### L 500.2500, L501.9985, L100.0100, L501.1800, M100.651 #### [facility] [address] [place], [address] Nucleated RBC (Bld) [#/Vol] 0 10*3/uL Normal 0-5 [facility] Comment on above: Performed By: #### L 500.2500, L501.9985, L100.0100, L501.1800, M100.651 #### [facility] [address] [place], [address] Platelet mean volume (Bld) [Entitic vol] 10.4 fL Normal 6.2-12.0 [facility] Comment on above: Performed By: #### L 500.2500, L501.9985, L100.0100, L501.1800, M100.651 #### [facility] [address] [place], [address] Platelets (Bld) [#/Vol] 301 10*3/uL Normal 150-450 [facility] Comment on above: Performed By: #### L 500.2500, L501.9985, L100.0100, L501.1800, M100.651 #### [facility] [address] [place], [address] RBC (Bld) [#/Vol] 4.72 10*6/uL Normal 4.2-5.4 [facility] Comment on above: Performed By: #### L 500.2500, L501.9985, L100.0100, L501.1800, M100.651 #### [facility] [address] [place], [address] RDW SD 43.7 fl Normal 35.1-43.9 [facility] Comment on above: Performed By: #### L 500.2500, L501.9985, L100.0100, L501.1800, M100.651 #### [facility] [address] [place], [address] WBC (Bld) [#/Vol] 7.4 10*3/uL Normal 4.4-11.0 [facility] Comment on above: Performed By: #### L 500.2500, L501.9985, L100.0100, L501.1800, M100.651 #### [facility] [address] [place], [address] Determination of erythrocyte mean corpuscular volume (MCV)Ordered By: Dr. Martinez on 11-17-2022 MCV (RBC) [Entitic vol] 87.7 fL 81-99 [facility] Extremity Lower without Cont raon 11-17-2022 Extremity Lower without Contra [facility] Imaging Services [address] [place] [address] Extremity Lower without Contra MR#: [id number] Acct: [id number] Name: MABEL ENGLISH Rep #: [id number] : 1970 F 51 From: Bryan Tellez MD PCP: Dr. Bianka Vogel MD Status: REG CLI Study: Extremity Lower without Contra Date of Exam: 0 11/17/22 Exam# [id number] Ordering Dr: Joe Martinez MD PROCEDURE: CT LEFT KNEE WITHOUT CONTRAST REASON FOR EXAM: Male, 58 years old. Preoperative planning for the [employer] Robotic knee surgery. Knee pain. TECHNIQUE: Transaxial CT of the hip, knee and ankle were obtained. Coronal and sagittal reconstruction images of the knee were provided. Individualized dose optimization techniques were used for this CT. COMPARISON: None. FINDINGS: Standard protocol for the preoperative planning for the [employer] robotic knee surgery was performed. There is mild osteoarthrosis of the hip, knee and ankle. CT/Extremity Lower without Contra IMPRESSION: Preoperative [employer]otic knee surgical CT evaluation with findings as described above. Electronically Signed: Bryan Tellez, at 9:27 EDT , CC: Dr. Bianka Vogel MD; Dr. Joe Martinez MD Ammonia Distiller: Signed Normal [facility] Hematocrit Auto (Bld) [Volum e fraction]Ordered By: Dr. Martinez on 11-17-2022 Hematocrit (Bld) [Volume fraction] 41.4 % 37-47 [facility] Hemoglobin A1con 11-17-2022 HbA1c (Bld) [Mass fraction] 9.9 % High 3.8-5.6 [facility] Comment on above: Result Comment: Norm al < 5.7 % Prediabetic 5.7 - 6.4 % Diabetic >or= 6.5 % Please note range changes. Performed By: #### L 500.2500, L501.9985, L100.0100, L501.1800, M100.651 #### [facility] [address] [place], [place], [id number] Laboratory - Chemistry and C hemistry - challengeOrdered By: Dr. Coon on 11-17-2022 Magnesium [Mass/Vol] 2.1 mg/dL 1.6-2.6 [facility] Laboratory - Chemistry and C hemistry - challengeOrdered By: Dr. Martinez on 11-17-2022 Urea nitrogen/Creatinine [Mass ratio] 26.0 mg/mg 10-20 [facility] Laboratory - Hematology and Cell countsOrdered By: Dr. Martinez on 11-17-2022 Erythrocyte distribution width (RBC) [Entitic vol] 43.7 fL 35.1-43.9 [facility] Erythrocyte distribution width (RBC) [Ratio] 13.5 % 11.6-14.6 [facility] Immature granulocytes/100 WBC (Bld) 0.300 % 0.0-0.9 [facility] Comment on above: IG% - Immature Granu locytes (promyelocytes, myelocytes and metamyelocytes) > 1% indicates that a LEFT SHIFT is Present. MCH (RBC) [Entitic mass] 28.8 pg 27.0-32.0 [facility] Nucleated RBC/100 WBC (Bld) [Ratio] 0 % 0-5 [facility] MCHC Auto (RBC) [Mass/Vol]Or dered By: Dr. Martinez on 11-17-2022 MCHC (RBC) [Mass/Vol] 32.9 g/dL 32-36 [facility] Magnesiumon 11-17-2022 Magnesium [Mass/Vol] 2.1 mg/dL Normal 1.6-2.6 [facility] Comment on above: Performed By: #### L 501.5200 #### [facility] [address] [place], [address] No Panel InformationOrdered By: Dr. Martinez on 11-17-2022 Estimated GFR (MDRD) Amer 95 mL/min >60 [facility] Comment on above: GFR Calc Estimated GFR (MDRD) Non-Af Amer 79 mL/min >60 [facility] Comment on above: Non- GFR Calc Platelets bldOrdered By: Dr. Martinez on 11-17-2022 Platelets (Bld) [#/Vol] 301 10*3/uL 150-450 [facility] Serum or plasma albumin carlos urement (mass/volume)Ordered By: Dr. Martinez on 11-17-2022 Albumin [Mass/Vol] 3.6 g/dL Normal 3.2-5.0 [facility] Comment on above: Performed By: #### L 500.2500, L501.9985, L100.0100, L501.1800, M100.651 #### [facility] [address] [place], [address] Serum or plasma calcium carlos urement (mass/volume)Ordered By: Dr. Martinez on 11-17-2022 Calcium [Mass/Vol] 9.4 mg/dL 8.5-10.1 [facility] Serum or plasma creatinine m easurement (mass/volume)Ordered By: Dr. Martinez on 11-17-2022 Creatinine [Mass/Vol] 0.81 mg/dL Normal 0.55-1.02 [facility] Comment on above: The validity of the calculated GFR & GFRAA in patients over 70 years has not been determined. Clinical correlation is essential. Result Comment: The validity of the calculated GFR GFRAA in patients over 70 years has not been determined. Clinical correlation is essential. Performed By: #### L 500.2500, L501.9985, L100.0100, L501.1800, M100.651 #### [facility] [address] [place], [address] Serum or plasma urea nitroge n measurement (mass/volume)Ordered By: Dr. Martinez on 11-17-2022 Urea nitrogen [Mass/Vol] 21 mg/dL High 7-18 [facility] Comment on above: Performed By: #### L 500.2500, L501.9985, L100.0100, L501.1800, M100.651 #### [facility] [address] [place], [address] Thin prep Papanicolaou smear with manual screeningOrdered By: Dr. Martinez on 11-17-2022 Thin prep Papanicolaou smear with manual screening 5 5-15 [facility] Whole blood hemoglobin A1c/t otal hemoglobin ratio (mass fraction)Ordered By: Dr. Martinez on 11-17-2022 HbA1c (Bld) [Mass fraction] 9.9 % 3.8-5.6 [facility] Comment on above: Normal < 5.7 % Predi abetic 5.7 - 6.4 % Diabetic >or= 6.5 % Please note range changes. PT D/C Summary (1)on 023 PT D/C Summary (1) [facility] Physical Therapy [facility] [facility]. [address] [place] [address] / REHABILITATION SERVICES DISCHARGE SUMMARY MR#: [id number] Acct: [id number] Name: NOHEMI ENGLISH Rep #: [id number] : 1970 51 From: Arnie Peralta DPT, OCS, CSCS Referring Dr.: Dr. Joe Martinez MD Status: RE G RCR Insurance: [facility] PACKAGE PLAN [facility] [employer] It has been my pleasure to treat NOHEMI ENGLISH referred by Dr. Joe Martinez MD, with the diagnosis of R knee OA for a total of 5 visit(s). Discharge Date: 10/17/22 Please see the following information for a summary of their discharge status. Subjective: Knee doing pretty good. Exercises are going well and still challenged. Surgery is November 26. Pain in knee not bad lately, up to 2/10. Walking helps. No walker yet but will get one with wheels. No steps once she enters house. No questions or concerns for the next month. Activities pretty normal, just hurt at times...could not mow the lawn if she needed to. R knee Pain Intensity (Out of 10): Unrated % Improvement: 60 Objective/Function: Picked up on gait training very quickly and feels like she can practice a little at home and continue current exercises and get along well. Goal 1:: 0-110 AROM to help with steps and gait Goal Progress: Goal Met Goal 2:: Patient feel pain 0-2/10 at worst and 60% better Goal Progress: Goal Met Goal 3:: LEFS score 50 Goal Progress: Goal Met Goal 4:: vaccuum without increased pain Goal Progress: Goal Met Goal 5:: I activitiy modificaitona nd ex to manage bone on bone condition Goal Progress: Goal Met Goal 6:: I wh walker gait for surgery! Goal Progress: Goal Met Plan: d/c Discharge Comments: pt to have surgery in November If there are questions or concerns regarding this patient's physical therapy, please feel free to call me at [phone]. Thank you for the referral of this patient. Sincerely, Arnie Peralta DPT, OCS, CSCS Balance/Gait/Functi onal tests - Balance/Special Test Scores Functional Gait Assessment Score: 28 % Disability: 6.6700 Lower Extremity Functional Score: 50 10/17/22 0928 CC: Dr. Bianka Vogel MD; Dr. Joe Martinez MD EBG Signed Normal [facility] Re-Evaluation - PT (1)on Re-Evaluation - PT (1) [facility] Physical Therapy [facility] [address] [place] [address]. [address] [place] [address] / REEVALUATION / MEDICARE RECERTIFICATION PHYSICAL THERAPY MR#: [id number] Acct: [id number] Name: NOHEMI ENGLISH Rep #: [id number] : 1970 51 From: Arnie Peralta DPT, OCS, CSCS Referring Dr.: Dr. Joe Martinez MD Status:REG RCR Insurance: [facility] PACKAGE PLAN [facility] [employer] Dr. Joe Martinez MD, It has been my pleasure to treat NOHEMI ENGLISH over the last 4 visits for R knee OA. Please see the progress note below for an update on the physical therapy plan of care! Subjective: Getting better, I can walk further without as much pain. Can walk a half mile before needs to sit. improving grocery trips. pain 5/10 with 30 minutes of walking but goes away in 5 minutes. Getting up is still stiff. Sleeping well. Nothing else scheduled with Dr. Martinez.Planning on TKA 11/26. Objective/Function: Walking well with mild antalgia today, since patient is scheduled for surgery, will need instruction on walker and steps etc. feels ready to continue via HEp for activity modificaiton stretch and strengthen. Plan Plan: f/u one month to ensure ex going well and pt to call prior if pain worsens. Will need walker instruct, stair instruct and final msmts in prep for surgery in November. Balance/Gait/Functi onal tests - Balance/Special Test Scores Functional Gait Assessment Score: 28 % Disability: 6.6700 Lower Extremity Functional Score: 50 Goals Goal 1:: 0-110 AROM to help with steps and gait Goal Time Frame: 4-6 Weeks Goal Progress: ? Goal 2:: Patient feel pain 0-2/10 at worst and 60% better Goal Time Frame: 4-6 Weeks Goal Progress: Goal Met Goal 3:: LEFS score 50 Goal Time Frame: 4-6 Weeks Goal Progress: Goal Met Goal 4:: vaccuum without increased pain Goal Time Frame: 4-6 Weeks Goal Progress: Goal Met Goal 5:: I activitiy modificaitona nd ex to manage bone on bone condition Goal Time Frame: 4-6 Weeks Goal Progress: Goal Met Goal 6:: I wh walker gait for surgery! Goal Time Frame: 4-6 Weeks Goal Progress: NEW GOALK for next sessio Anticipated Interventions Patient/Client Instruction: Educate patient on: Condition, Plan of Care For the Purpose of:: To decrease pain, To increase ROM, To improve muscle performance and motor function Therapeutic Exercise to Include: Strength training, Flexibilty training, Passive ROM, Active ROM For the Purpose of:: To decrease pain, To increase ROM, To improve muscle performance and motor function, To increase tolerance to activity/condition/ position Please do not hesitate to contact me at [phone] by phone or if you have questions or concerns regarding this new plan of care! Sincerely, Arnie Peralta, DPT, OCS, CSCS 09/19/22 1251 CC: Dr. Bianka Vogel MD; Dr. Joe Martinez MD EBG Signed For Medicare only, by signing this I certify the plan of care. _ Physicians Signature Date Normal [facility] Inital Evaluation (1) - PTon 08-28-2022 Inital Evaluation (1) - PT [facility] Physical Therapy [facility] [address] [place] [address] / REHABILITATION SERVICES INITIAL EVALUATION MR#: [id number] Acct: [id number] Name: NOHEMI ENGLISH Rep #: [id number] : 1970 51 From: Arnie Peralta DPT, OCS, CSCS Referring Dr.: Dr. Joe Martinez MD Status: RE G RCR Insurance: [employer] SELF PAY INSURANCE Patient's Visit Information NOHEMI ENGLISH is a 51 year old F referred to Physical Therapy by Dr. Joe Martinez MD with a diagnosis of R knee OA. Date of Evaluation: 08/28/22 Physical Therapist: Arnie Peralta DPT, KARL, CSCS - Visit Plan Frequency: 1x/Week Duration: 4-6 Weeks Plan: weekly(pt choice due to travel and cost) x 4-6 to progress HEP and ensure appropriate activity modificaiton. visit2: hs and quad stretches given for HEP and measure ROM R knee to ensure improvement, progress ROM and SLR as needed. visit 3 clamshells, bridges, core strength given as HEP and progress SLR with band or weight. visit 4 attempt WB ex and recheck. May use MH as needed, May do leg pull and mobs if needed. - Subjective R knee pain since November for no apparent reason. Pain 4/10 most of time. Worse with getting out of cahir after a while, and climbing steps. Has lots of steps at home and can do them with rail but they are painful. No other treatments, had xrays showed degeneration bone on bone. No scheduled surgery yet but she will likely need it. No regular exercises. Not employed. Does housework but it hurts and is slow. Is up at night intermittently with pain. Sleep - Pain R knee Pain Intensity (Out of 10): 4 Pain Intensity Range: 4, 7 - Objective R knee. Walks I with R antalgia into PT. Trasnfers chair and bed I with UE. Steps are reciprocal up but pain R and needs rail. Descending uses L only due to pain. AROM R knee is -8 extension to 95 flexion and painful end ranges. L knee is 0-118. Strength hip is 3+ abd and ext and 4- flexion, no pain. ankle strength is 4/5 B. Knee strength is 3 R knee ext and painful and 3+ flexion with pain. L knee is 4. quad and HS and gastroc are max tight. - ant drawer and post sag. + bounce home adn patellar grind. - Balance/Special Test Scores Functional Gait Assessment Score: 28 % Disability: 6.6700 Lower Extremity Functional Score: 41 - Goals Goal 1:: 0-110 AROM to help with steps and gait Goal Time Frame: 4-6 Weeks Goal 2:: Patient feel pain 0-2/10 at worst and 60% better Goal Time Frame: 4-6 Weeks Goal 3:: LEFS score 50 Goal Time Frame: 4-6 Weeks Goal 4:: vaccuum without increased pain Goal Time Frame: 4-6 Weeks Goal 5:: I activitiy modificaitona nd ex to manage bone on bone condition Goal Time Frame: 4-6 Weeks - Rehabilitation Potential Physical Therapy Diagnosis: R knee OA and limtied ROM/strength. Rehabilitation Potential: Questionable - Anticipated Interventions Patient/Client Instruction: Educate patient on: Condition, Plan of Care For the Purpose of:: To decrease pain, To increase ROM, To improve muscle performance and motor function Therapeutic Exercise to Include: Strength training, Flexibilty training, Passive ROM, Active ROM For the Purpose of:: To decrease pain, To increase ROM, To improve muscle performance and motor function, To increase tolerance to activity/condition/ position Thank you for the opportunity to evaluate your patient. For Medicare and Medicare HMO plans, please review the plan of care and approve it. It will need to be FAXED BACK to us at [phone] for Medicare purposes. For Medicare only, by signing this I certify the plan of care. Please let me know if there are questions or concerns regarding this plan of care. Physician Signature: __Date: 08/28/22 1049 CC: Dr. Bianka Vogel MD; Dr. Joe Martinez MD EBG Signed Normal [facility] Hemoglobin A1con 08-25-2022 HbA1c (Bld) [Mass fraction] 6.6 % High 3.8-5.6 [facility] Comment on above: Result Comment: Norm al < 5.7 % Prediabetic 5.7 - 6.4 % Diabetic >or= 6.5 % Please note range changes. Performed By: #### L [phone] ####[facility] [id number] [facility] [place], [address] Whole blood hemoglobin A1c/t otal hemoglobin ratio (mass fraction)Ordered By: Dr. Martinez on 08-25-2022 HbA1c (Bld) [Mass fraction] 6.6 % 3.8-5.6 [facility] Comment on above: Normal < 5.7 % Predi abetic 5.7 - 6.4 % Diabetic >or= 6.5 % Please note range changes. PTH, INTACT [CCL]on 05-07-20 22 PTH, Intact 22 pg/mL Normal 15-65 [facility] Comment on above: Result Comment: [facility] [address] [place] [address] Pool Melendez III, M.D. [id number] Performed By: #### 2 05676 #### [address] [address] BMP with eGFRon 05-06-2022 AGE 51 years Normal [facility] Comment on above: Performed By: #### 2 47862 #### [address] [address] Anion gap [Moles/Vol] 15 mmol/L Normal 10 - 20 [facility] Comment on above: Performed By: #### 2 02873 #### [facility],[address] [place] [address] BMP with eGFR Normal [facility] Comment on above: Result Comment: BASI C METABOLIC PANEL Performed By: #### 2 60131 #### [facility],[address] [place] [address] Calcium [Mass/Vol] 8.9 mg/dL Normal 8.5 - 10.1 [facility] Comment on above: Performed By: #### 2 48821 #### [facility],[address] [place], [place] [address] Chloride [Moles/Vol] 103 mmol/L Normal 98 - 107 [facility] Comment on above: Performed By: #### 2 45666 #### [facility],[address] [place] [address] CO2 [Moles/Vol] 26.4 mmol/L Normal 21.0 - 32.0 [facility] Comment on above: Performed By: #### 2 21080 #### [facility],[address] [place] [address] Creatinine [Mass/Vol] 0.74 mg/dL Normal 0.55 - 1.02 [facility] Comment on above: Performed By: #### 2 41374 #### [facility],[address] [place] [address] GFR/1.73 sq M.predicted among non-blacks MDRD (S/P/Bld) [Vol rate/Area] mL/min/{1.73_m2} Normal 60 - 999 [facility] Comment on above: Performed By: #### 2 57781 #### [facility],[address] [place] [address] Result Comment: ACCO RDING TO THE NATIONAL KIDNEY DISEASE EDUCATION PROGRAM(NKDE), A NORMAL eGFR IS A VALUE GREATER THAN OR EQUAL TO 60 ML/MIN/1.73 SQ METERS. CHRONIC KIDNEY DISEASE: <60mL/MIN/1.73 SQ METERS KIDNEY FAILURE: <15mL/MIN/1.73 SQ METERS THIS TEST SHOULD ONLY BE USED FOR PATIENTS 18 YEARS OF AGE AND OLDER. Glucose [Mass/Vol] 154 mg/dL High 74 - 106 [facility] Comment on above: Performed By: #### 2 59048 #### [facility],[address] [place] [address] Potassium [Moles/Vol] 3.9 mmol/L Normal 3.5 - 5.1 [facility] Comment on above: Performed By: #### 2 20567 #### [facility],[address] [place] [address] Sodium [Moles/Vol] 140 mmol/L Normal 136 - 145 [facility] Comment on above: Performed By: #### 2 23405 #### [facility],[address] [place] [address] Urea nitrogen [Mass/Vol] 15 mg/dL Normal 7 - 18 [facility] Comment on above: Performed By: #### 2 21182 #### [facility],[address] [place] [address] CBC + DIFFon 05-06-2022 Baso # 0.10 x10EE3/UL Normal 0.00 - 0.10 [facility] Comment on above: Performed By: #### 2 60427 #### [facility],[address] [place] [address] Basophils/100 WBC (Bld) 1.0 % Normal 0.0 - 2.0 [facility] Comment on above: Performed By: #### 2 00349 #### [facility],[address] [place] [address] CBC + DIFF Normal [facility] Comment on above: Result Comment: CBC- COMPLETE BLOOD COUNT Performed By: #### 2 30461 #### [facility],[address] [place] [address] EO # 0.10 x10EE3/UL Normal 0.00 - 0.50 [facility] Comment on above: Performed By: #### 2 75621 #### [facility],[address] [place], [place] [address] Eosinophils/100 WBC (Bld) 1.5 % Normal 0.0 - 7.0 [facility] Comment on above: Performed By: #### 2 74528 #### [facility],[address] [place] [address] Erythrocyte distribution width (RBC) [Ratio] 14.7 % Normal 12.0 - 15.6 [facility] Comment on above: Performed By: #### 2 88674 #### [place] [address] Hematocrit (Bld) [Volume fraction] 38.4 % Normal 34.0 - 46.0 [facility] Comment on above: Performed By: #### 2 55414 #### [facility],[address] [place] [address] Hemoglobin (Bld) [Mass/Vol] 12.9 g/dL Normal 12.0 - 16.0 [facility] Comment on above: Performed By: #### 2 28753 #### [facility],[address] [place] [address] Lymph # 3.60 x10EE3/UL High 0.80 - 2.80 [facility] Comment on above: Performed By: #### 2 49230 #### [place] [id number] Lymphocytes/100 WBC (Bld) 41.7 % Normal 20.0 - 45.0 [facility] Comment on above: Performed By: #### 2 71026 #### [place] [address] MANUAL DIFF N/A Normal [facility] Comment on above: Performed By: #### 2 73387 #### [facility],[address] [place] [address] MCH (RBC) [Entitic mass] 29 pg Normal 27 - 33 [facility] Comment on above: Performed By: #### 2 02623 #### [facility],[address] [place] [address] MCHC 34 X10 3 Normal 32 - 36 [facility] Comment on above: Performed By: #### 2 94340 #### [facility],[address] [place] [address] MCV (RBC) [Entitic vol] 86 fL Normal 80 - 99 [facility] Comment on above: Performed By: #### 2 00166 #### [facility],[address] [place] [address] Calvert # 0.50 x10EE3/UL Normal 0.20 - 1.00 [facility] Comment on above: Performed By: #### 2 94385 #### [facility],[address] [place] [address] MONOS % 6.1 % Normal 0.0 - 10.0 [facility] Comment on above: Performed By: #### 2 22451 #### [facility],[address] [place] [address] Morphology Gelacio (Bld) [Interp] N/A Normal [facility] Comment on above: Result Comment: {CD] Performed By: #### 2 49984 #### [facility],[address] [place] [address] Neut # 4.20 x10EE3/UL Normal 1.50 - 7.10 [facility] Comment on above: Performed By: #### 2 55548 #### [facility],[address] [place] [address] Neutrophils/100 WBC (Bld) 49.7 % Normal 46.0 - 76.0 [facility] Comment on above: Performed By: #### 2 40328 #### [facility],[address] [place] [address] PLATELET 380 x10EE3/UL Normal 150 - 450 [facility] Comment on above: Performed By: #### 2 19503 #### [facility],[address] [place] [address] Platelet mean volume (Bld) [Entitic vol] 8.4 fL Normal 6.6 - 10.5 [facility] Comment on above: Result Comment: AUTO MATED DIFFERENTIAL Performed By: #### 2 88523 #### [facility],[address] [place] [address] RBC 4.47 x 10EE6/UL Normal 4.10 - 5.30 [facility] Comment on above: Performed By: #### 2 79003 #### [facility],[address] [place] [address] WBC 8.5 x 10EE3/UL Normal 4.5 - 10.8 [facility] Comment on above: Performed By: #### 2 49927 #### [facility],[address] [place] [address] URIC ACIDon 05-06-2022 Urate [Mass/Vol] 6.6 mg/dL High 2.6 - 6.0 [facility] Comment on above: Performed By: #### 2 99988 #### [facility],[address] [place] [address] URINE CREATININE AND PROTEIN RATIOon 05-06-2022 CREATININE UR 14.14 mg/dl Normal [facility] Comment on above: Performed By: #### 2 69995 #### [facility],[address] [place] [address] PC RATIO 0.12 mg/dL Normal 0.00 - 10.00 [facility] Comment on above: Performed By: #### 2 25901 #### [facility],[address] [place] [address] URINE TOTAL PROTEIN <6.00 Normal 0.00 - 10.00 [facility] Comment on above: Performed By: #### 2 72906 #### [facility],[address] [place] [address] VITAMIN D, 25 HYDROXYon 09-2 VitD 22.00 ng/mL Low 30.00 - 100 [facility] Comment on above: Result Comment: 25-O HD3 indicates both endogenous production and supplementation. 25-OHD2 is an indicator of exogenous sources, such as diet or supplementation. Therapy is based on measurement of Total 25-OHD, with levels <20 ng/mL indicative of Vitamin D deficiency, while levels between 20 ng/mL and 30 ng/mL suggest insufficiency. Optimal levels are >=30ng/mL. Vitamin D, 25-OH D3 Not Established Vitamin D, 25-OH D2 Not Established Performed By: #### 2 24168 #### [facility],[address] [place] [address] KNEE COMPLETE RT MIN 4 VIEWS on 03-21-2022 KNEE COMPLETE RT MIN [address] [address] Patient: MABEL ENGLISH Phone#: : 1970 Age: 51 Gender: F Pt. Type: Out Account: [id number] Location: [facility] Ordering: BIANKA VOGEL Exam Date: 03/21/202215:31 Family Phys: Charge Code: 651998 Physician: [place] Order #: [id number] DLP Dose#: PROCEDURE: X-RAY KNEE RT COMPLETE 4 VIEWS COMPARISON: None. INDICATIONS: Knee pain FINDINGS: BONES: Moderately severe degenerative changes of the knee are present. There is marked narrowing of the medial compartment. Calcification adjacent to the medial femoral condyle is present and may be the result of remote avulsion. There is no evidence of acute bone abnormality. SOFT TISSUES: Mild prepatellar soft tissue swelling is present. Correlate with possible prepatellar bursitis. EFFUSION: None visible. OTHER: Negative. CONCLUSION: 1. Moderately severe degenerative changes of the knee are present. There is no evidence of acute bone abnormality. 2. Mild prepatellar soft tissue swelling is present and raises the possibility of prepatellar bursitis. Dictated by: Winnie Grimm MD on 03/21/2022 at 16:09 Approved by: Winnie Grimm MD on 03/21/2022 at 16:10 Normal [facility] Laboratory - Hematology and Cell countson 03-19-2022 HbA1c (Bld) [Mass fraction] 6.6 % Normal 4.6 - 7.1 % [facility], [facility].; [place] [employer] [facility], [facility]. Laboratory - Chemistry and C hemistry - challengeon 10-23-2021 Calcium [Mass/Vol] 10.0 mg/dL Normal 8.6 - 10. 4 mg/dL [facility], [facility].; [facility], [facility]. Chloride [Moles/Vol] 104 mmol/L Normal 98 - 11 0 mmol/L [facility], [facility].; [place] [employer] CO2 [Moles/Vol] 25 mmol/L Normal 20 - 32 mmol/L [facility], [facility].; [place] [employer] [facility], [facility]. Creatinine [Mass/Vol] 0.67 mg/dL Normal 0.50 - 1.05 mg/dL [facility], [facility].; [place] [employer] [facility], [facility]. GFR/1.73 sq M.predicted among blacks MDRD (S/P/Bld) [Vol rate/Area] 118 mL/min/{1.73_m2} Normal [facility], [facility].; [place] [employer] Glucose [Mass/Vol] 122 mg/dL Abnormal 65 - 99 mg/dL [facility], [facility].; [place] [employer] [facility] Potassium [Moles/Vol] 4.2 mmol/L Normal 3.5 - 5.3 mmol/L [facility], [facility].; [place] [employer] [facility] Sodium [Moles/Vol] 140 mmol/L Normal 135 - 146 mmol/L [facility], [facility].; [facility], [facility]. Urea nitrogen [Mass/Vol] 19 mg/dL Normal 7 - 25 mg/dL [facility]; [facility] Laboratory - Hematology and Cell countson 10-23-2021 HbA1c (Bld) [Mass fraction] 7.2 % Abnormal 4.6 - 7.1 % [facility]; [facility] No Panel Informationon 10-23 BUN/CREATININE RATIO NOT APPLICABLE Normal 6 - 22 [facility]; [facility] eGFR NON-AFR. AUSTRALIAN 102 Normal Ho [facility]; [facility] Laboratory - Hematology and Cell countson 07-24-2021 HbA1c (Bld) [Mass fraction] 6.9 % Normal 4.6 - 7.1 % [facility]; [facility] PTH, Intacton 04-15-2021 PTH, Intact 12 pg/mL Low 15-65 [facility] Comment on above: Performed By: #### P THI #### [facility] Routine Lab [address] [place] [phone] Hemoglobin A1con 03-21-2021 Glucose [Mass/Vol] 249 mg/dL Normal [facility] Comment on above: Performed By: #### H BA1C #### [facility] [address] [place] [phone] HbA1c (Bld) [Mass fraction] 10.3 % High 4.3-5.6 [facility] Comment on above: Performed By: #### H BA1C #### [facility] Routine Lab [address] [place] [address] Hemoglobin A1con 03-20-2021 Glucose [Mass/Vol] 246 mg/dL Normal [facility] Comment on above: Performed By: #### H BA1C #### [facility] Routine Lab [address] [address] HbA1c (Bld) [Mass fraction] 10.2 % High 4.3-5.6 [facility] Reference Lab Comment on above: Performed By: #### H BA1C #### [facility] Routine Lab [address] [place], [place] [address] Laboratory - Hematology and Cell countson 01-17-2020 HbA1c (Bld) [Mass fraction] 9.1 % Abnormal 4.6 - 7.1 % [facility], [employer], [employer]. Laboratory - Chemistry and C hemistry - challengeon 09-01-2019 Glucose Glucometer (BldC) [Moles/Vol] 182 Abnormal 60 - 120 [facility].; [employer]. Laboratory - Hematology and Cell countson 09-01-2019 HbA1c (Bld) [Mass fraction] 9.1 % Abnormal 4.6 - 7.1 % [employer].; [employer], [employer]. Laboratory - Chemistry and C hemistry - challengeon 05-23-2019 Glucose Glucometer (BldC) [Moles/Vol] 172 Abnormal 60 - 120 [facility] [employer]. Laboratory - Hematology and Cell countson 05-23-2019 HbA1c (Bld) [Mass fraction] 8.5 % Abnormal 4.6 - 7.1 % [employer].; [employer], [employer]. Laboratory - Chemistry and C hemistry - challengeon 02-23-2019 Glucose Glucometer (BldC) [Moles/Vol] 206 Abnormal 60 - 120 [facility].; [employer]. Laboratory - Hematology and Cell countson 02-23-2019 HbA1c (Bld) [Mass fraction] 11.6 % Abnormal 4.6 - 7.1 % [facility] [employer], [employer]. Laboratory - Chemistry and C hemistry - challengeon 01-28-2019 Beta HCG ( test) Ql (U) Negative Normal [facility] [employer], [employer]. Bilirubin Ql (U) Negative Normal [facility].; [employer] Calcium [Mass/Vol] 10.0 mg/dL Normal 8.6 - 10. 2 mg/dL [facility], [facility].; [employer], [employer]. Chloride [Moles/Vol] 97 mmol/L Abnormal 98 - 11 0 mmol/L [facility] [employer] [facility].; [facility], [facility]. CO2 [Moles/Vol] 24 mmol/L Normal 20 - 32 mmol/L [facility].; [facility] Creatinine [Mass/Vol] 0.62 mg/dL Normal 0.50 - 1.10 mg/dL [facility].; [facility], [facility]. GFR/1.73 sq M.predicted among blacks MDRD (S/P/Bld) [Vol rate/Area] 123 {ML/MIN/1.73M2} Normal [facility].; [facility], [facility] GFR/1.73 sq M.predicted MDRD (S/P/Bld) [Vol rate/Area] 106 {ML/MIN/1.73M2} Normal [facility].; [facility], [facility] Glucose [Mass/Vol] 385 mg/dL Abnormal 65 - 99 mg/dL [facility], [facility]. Glucose Glucometer (BldC) [Moles/Vol] 351 Abnormal 60 - 120 [facility]; [facility], [facility]. Ketones Ql (U) Negative Normal [facility]; [facility], [facility]. pH (U) 5.0 [pH] Abnormal [facility]; [facility], [facility]. Potassium [Moles/Vol] 4.2 mmol/L Normal 3.5 - 5.3 mmol/L [facility]; [facility], [facility]. Sodium [Moles/Vol] 133 mmol/L Abnormal 135 - 146 mmol/L [facility].; [facility], [facility]. Specific gravity (U) [Rel density] 1.010 Normal [facility]; [facility]. Urea nitrogen [Mass/Vol] 14 mg/dL Normal 7 - 25 mg/dL [facility].; [facility], [facility]. Urea nitrogen/Creatinine [Mass ratio] 22.6 mg/mg Abnormal 6 - 22 [facility]; [facility], [facility]. Urobilinogen Qn (U) 0.2 mg/dL Normal [facility]; [facility] Laboratory - Hematology and Cell countson 01-28-2019 Basophils (Bld) [#/Vol] 50 {Cells}/uL Normal 0 - 200 {Cells}/uL [facility]; [facility] Basophils/100 WBC (Bld) 0.7 % Normal 0 - 1 % H [facility]; [facility] Eosinophils (Bld) [#/Vol] 80 {Cells}/uL Normal 15 - 500 {Cells}/uL [facility]; [facility] Eosinophils/100 WBC (Bld) 1.2 % Normal 0 - 4 % [facility]; [facility] Erythrocyte distribution width (RBC) [Ratio] 13.0 % Normal 11.0 - 15.0 % [facility]; [facility], [facility] ESR (Bld) [Velocity] 14 mm/h Normal 0 - 20 mm/h [facility]; [facility], [facility] Hematocrit (Bld) [Volume fraction] 46.4 % Abnormal 35.0 - 45.0 % [facility]; [facility] Hemoglobin (Bld) [Mass/Vol] 15.2 g/dL Normal 11.7 - 15.5 g/dL [facility]; [facility], [facility] Hemoglobin Ql (U) Negative Normal [facility]; [facility] Lymphocytes (Bld) [#/Vol] 3280 {Cells}/uL Normal 850 - 3900 {Cells}/uL [facility]; [facility] Lymphocytes/100 WBC (Bld) 48.4 % Abnormal 12 - 47 % [facility]; [facility], [facility] MCH (RBC) [Entitic mass] 28.8 pg Normal 27.0 - 33.0 PG [facility].; [facility], [facility] MCHC (RBC) [Mass/Vol] 32.8 g/dL Normal 32.0 - 36.0 g/dL [facility], [facility].; [place] [employer] [facility], [facility] MCV (RBC) [Entitic vol] 87.9 fL Normal 80.0 - 100.0 fL [employer].; [employer], [employer]. Monocytes (Bld) [#/Vol] 560 {Cells}/uL Normal 20 0 - 950 {Cells}/uL [facility] [employer] Monocytes/100 WBC (Bld) 8.3 % Normal 4 - 12 % H [facility].; [employer], [employer] Neutrophils (Bld) [#/Vol] 2800 {Cells}/uL Normal 1500 - 7800 {Cells}/uL [place] [employer].; [employer], [employer] Neutrophils/100 WBC (Bld) 41.4 % Normal 40 - 75 % [place] [employer].; [employer], [employer]. Platelet mean volume (Bld) [Entitic vol] 10.8 fL Normal 7.5 - 12.5 fL [facility] [employer], [employer].; [employer], [employer] Platelets (Bld) [#/Vol] 336 10*3/uL Normal 140 - 400 10*3/uL [facility] [employer], [employer] RBC (Bld) [#/Vol] 5.28 10*6/uL Abnormal 3.80 - 5.1 0 10*6/uL [employer].; [employer], [employer] WBC (Bld) [#/Vol] 6.8 10*3/uL Normal 3.8 - 10.8 10*3/uL [employer], [employer].; [employer], [employer] Laboratory - Specimen inform ationon 01-28-2019 Appearance (U) clear Normal [facility] dong [employer] Color (U) yellow Normal [employer].; [employer], [employer]. Laboratory - Urinalysison Glucose Test strip (U) [Mass/Vol] 1000 mg/dL Abnormal [employer].; [employer], [employer] Leukocyte esterase Test strip Ql (U) Negative Normal [employer].; [employer], [employer] Nitrite Ql (U) Negative Normal [facility] [employer].; [employer], [employer] Protein Ql (U) Negative Normal [facility]; [facility] Laboratory - Chemistry and C hemistry - challengeon 08-24-2017 Free T3 [Mass/Vol] 2.8 pg/mL Normal 2.3 - 4.2 pg/mL [facility]; [facility] Free T4 [Mass/Vol] 1.1 ng/dL Normal 0.8 - 1.8 ng/dL [facility]; [facility] TSH Qn 1.75 m[IU]/L Normal 0.40 - 4.50 {mIU/L} [facility]; [facility] Laboratory - Hematology and Cell countson 08-24-2017 Basophils (Bld) [#/Vol] 0 {Cells}/uL Normal 0 - 200 {Cells}/uL [facility]; [facility] Basophils/100 WBC (Bld) 0 % Normal 0 - 1 % H [facility]; [facility] Eosinophils (Bld) [#/Vol] 130 {Cells}/uL Normal 15 - 500 {Cells}/uL [facility].; [employer] [facility] Eosinophils/100 WBC (Bld) 1 % Normal 0 - 4 % [facility]; [place] [employer] [facility] Erythrocyte distribution width (RBC) [Ratio] 13.5 % Normal 11.0 - 15.0 % [facility]; [employer], [facility] Hematocrit (Bld) [Volume fraction] 46.7 % Abnormal 35.0 - 45.0 % [facility].; [employer] [facility] Hemoglobin (Bld) [Mass/Vol] 15.8 g/dL Abnormal 11.7 - 15.5 g/dL [facility].; [employer], [facility] Lymphocytes (Bld) [#/Vol] 5040 {Cells}/uL Abnormal 850 - 3900 {Cells}/uL [facility].; [employer], [facility] Lymphocytes/100 WBC (Bld) 57 % Abnormal 12 - 47 % [facility]; [employer] [facility] MCH (RBC) [Entitic mass] 29.6 pg Normal 27.0 - 33.0 PG [facility], [facility].; [facility], [facility]. MCHC (RBC) [Mass/Vol] 33.8 g/dL Normal 32.0 - 36.0 g/dL [facility], [facility].; [facility], Inc. MCV (RBC) [Entitic vol] 87.5 fL Normal 80.0 - 100.0 fL [facility], [facility].; [facility], [facility]. Monocytes (Bld) [#/Vol] 280 {Cells}/uL Normal 20 0 - 950 {Cells}/uL [facility], [facility].; [facility], Inc. Monocytes/100 WBC (Bld) 3 % Abnormal 4 - 12 % H [facility].; [facility], [facility]. Neutrophils (Bld) [#/Vol] 3380 {Cells}/uL Normal 1500 - 7800 {Cells}/uL [facility], [facility].; [facility] [employer] Neutrophils/100 WBC (Bld) 38 % Abnormal 40 - 75 % [facility].; [employer] [employer] Platelet mean volume (Bld) [Entitic vol] 9.5 fL Normal 7.5 - 12.5 fL [facility], [facility].; [facility], Inc. Platelets (Bld) [#/Vol] 265 10*3/uL Normal 140 - 400 10*3/uL [facility], [facility].; [employer] [employer] RBC (Bld) [#/Vol] 5.33 10*6/uL Abnormal 3.80 - 5.1 0 10*6/uL [facility], [facility].; [employer] WBC (Bld) [#/Vol] 8.8 10*3/uL Normal 3.8 - 10.8 10*3/uL [facility], [employer].; [employer] [employer], [employer]. Laboratory - Microbiology an d Antimicrobial susceptibilityon 07-03-2010 S. pyogenes Ag EIA Ql (Throat) Positive Abnormal [facility].; [place] [employer] Vital Signs Date Time Vital Sign Value Performing Clinician Facility 10-25-2024 09:55-0400 Body height 161.29 cm [facility] Work Phone: [employer]; [employer] 10-25-2024 09:55-0400 Body mass index (BMI) [Ratio] 41.5 kg/m2 Asfanehbill Nayaky [employer] Work Phone: [employer]; [employer]. 10-25-2024 09:55-0400 Body surface area Derived from formula 2.09 m2 Afsaneh Joshi [employer] Work Phone: [employer]; [employer] 10-25-2024 09:55-0400 Body weight 107.96 kg Afsaneh Nayaky [employer] Work Phone: [employer]; [employer] 10-25-2024 09:55-0400 Diastolic blood pressure 72 mm[Hg] Afsaneh Nayaky [employer] Work Phone: [employer]; [employer]. Comment on above: Patient Position: Sitting; Cuff Location : Left Arm; Cuff Size: Thigh 10-25-2024 09:55-0400 Heart rate 61 /min Afsaneh Joshi [employer] Work Phone: [employer]; [employer] Comment on above: Pattern: Regular 10-25-2024 09:55-0400 Systolic blood pressure 167 mm[Hg] Afsaneh Nayaky [employer] Work Phone: [employer]; [employer] Comment on above: Patient Position: Sitting; Cuff Location : Left Arm; Cuff Size: Thigh 07-11-2024 15:07-0500 Body height 161.29 cm Bianka Vogel MD Work Phone: [employer]; [employer] 07-11-2024 15:07-0500 Body mass index (BMI) [Ratio] 41.67 kg/m2 Bianka Vogel MD Work Phone: [employer]; [employer] 07-11-2024 15:07-0500 Body surface area Derived from formula 2.1 m2 Bianka Vogel MD Work Phone: [employer]; [employer]. 07-11-2024 15:07-0500 Body weight 108.41 kg Bianka Vogel MD Work Phone: [employer]; [employer]. 07-11-2024 15:07-0500 Diastolic blood pressure 80 mm[Hg] Bianka Vogel MD Work Phone: [employer]; [employer]. Comment on above: Patient Position: Sitting; Cuff Location : Left Arm; Cuff Size: Thigh 07-11-2024 15:07-0500 Heart rate 73 /min Bianka Vogel MD Work Phone: [employer]; [employer]. Comment on above: Pattern: Regular 07-11-2024 15:07-0500 Systolic blood pressure 156 mm[Hg] Bianka Vogel MD Work Phone: [employer]; [employer]. Comment on above: Patient Position: Sitting; Cuff Location : Left Arm; Cuff Size: Thigh 02-22-2024 11:02-0400 Body height 161.29 cm Afsaneh Adi [facility] Work Phone: [employer]; [employer] 02-22-2024 11:02-0400 Body mass index (BMI) [Ratio] 41.5 kg/m2 [facility] Work Phone: [employer]; [employer]. 02-22-2024 11:02-0400 Body surface area Derived from formula 2.09 m2 [facility] Work Phone: [employer]; [employer]. 02-22-2024 11:02-0400 Body weight 107.96 kg [facility] Work Phone: [employer]; [employer] 02-22-2024 11:02-0400 Diastolic blood pressure 81 mm[Hg] Afsaneh Adi [employer] Work Phone: [place] [employer].; [employer]. Comment on above: Patient Position: Sitting; Cuff Location : Left Arm; Cuff Size: Thigh 02-22-2024 11:02-0400 Heart rate 62 /min Afsaneh Adi [employer] Work Phone: [employer].; [employer]. Comment on above: Pattern: Regular 02-22-2024 11:02-0400 Systolic blood pressure 151 mm[Hg] Afsaneh Adi [employer] Work Phone: [employer].; [employer]. Comment on above: Patient Position: Sitting; Cuff Location : Left Arm; Cuff Size: Thigh 08-26-2023 14:56-0500 Body height 161.29 cm Afsaneh Adi [employer] Work Phone: [employer].; [employer]. 08-26-2023 14:56-0500 Body mass index (BMI) [Ratio] 40.45 kg/m2 Afsaneh Adi [employer] Work Phone: [employer].; [employer]. 08-26-2023 14:56-0500 Body surface area Derived from formula 2.07 m2 Afsaneh Adi [employer] Work Phone: [employer].; [employer]. 08-26-2023 14:56-0500 Body weight 105.24 kg Afsaneh Adi [employer] Work Phone: [employer].; [employer]. 08-26-2023 14:56-0500 Diastolic blood pressure 81 mm[Hg] Afsaneh Adi [employer] Work Phone: [employer].; [employer]. Comment on above: Patient Position: Sitting; Cuff Location : Left Arm; Cuff Size: Thigh 08-26-2023 14:56-0500 Heart rate 80 /min Afsaneh Adi [employer] Work Phone: [employer].; [employer]. Comment on above: Pattern: Regular 08-26-2023 14:56-0500 Systolic blood pressure 155 mm[Hg] Afsaneh Adi [employer] Work Phone: [employer].; [employer]. Comment on above: Patient Position: Sitting; Cuff Location : Left Arm; Cuff Size: Thigh 04-10-2023 10:57-0400 Body height 161.29 cm Afsaneh Adi [employer] Work Phone: [employer].; [employer]. 04-10-2023 10:57-0400 Body mass index (BMI) [Ratio] 39.41 kg/m2 Afsaneh Adi [employer] Work Phone: [employer].; [employer]. 04-10-2023 10:57-0400 Body surface area Derived from formula 2.05 m2 Afsaneh Nayaky [employer] Work Phone: [employer].; [employer]. 04-10-2023 10:57-0400 Body weight 102.51 kg Afsaneh Nayaky [employer] Work Phone: [employer].; [employer]. 04-10-2023 10:57-0400 Diastolic blood pressure 78 mm[Hg] Afsaneh Adi [employer] Work Phone: [employer].; [employer]. Comment on above: Patient Position: Sitting; Cuff Location : Left Arm; Cuff Size: Thigh 04-10-2023 10:57-0400 Heart rate 80 /min Afsaneh Adi [employer] Work Phone: [employer].; [employer]. Comment on above: Pattern: Regular 04-10-2023 10:57-0400 Systolic blood pressure 148 mm[Hg] Afsaneh Adi [employer] Work Phone: [employer].; [employer]. Comment on above: Patient Position: Sitting; Cuff Location : Left Arm; Cuff Size: Thigh 01-07-2023 10:53-0400 Body height 161.29 cm Afsaneh Nayaky [employer] Work Phone: [employer] [employer]; [employer]. 01-07-2023 10:53-0400 Body mass index (BMI) [Ratio] 39.93 kg/m2 Afsaneh Adi [employer] Work Phone: [employer]; [employer]. 01-07-2023 10:53-0400 Body surface area Derived from formula 2.06 m2 Afsaneh Nayaky [employer] Work Phone: [employer]; [employer]. 01-07-2023 10:53-0400 Body weight 103.87 kg Afsaneh Adi [employer] Work Phone: [employer]; [employer]. 01-07-2023 10:53-0400 Diastolic blood pressure 78 mm[Hg] Afsaneh Adi [employer] Work Phone: [employer]; [employer]. Comment on above: Patient Position: Sitting; Cuff Location : Left Arm; Cuff Size: Thigh 01-07-2023 10:53-0400 Heart rate 71 /min Afsaneh Nayaky [employer] Work Phone: [employer]; [employer]. Comment on above: Pattern: Regular 01-07-2023 10:53-0400 Systolic blood pressure 126 mm[Hg] Afsaneh Adi [employer] Work Phone: [employer]; [employer]. Comment on above: Patient Position: Sitting; Cuff Location : Left Arm; Cuff Size: Thigh 11-28-2022 08:58-0400 Body height 161.29 cm Ping Reese LPN [employer].; [employer]. 11-28-2022 08:58-0400 Body mass index (BMI) [Ratio] 39.58 kg/m2 Ping Reese LPN [facility]. 11-28-2022 08:58-0400 Body surface area Derived from formula 2.05 m2 Ping Reese LPN [facility].; [facility]. 11-28-2022 08:58-0400 Body weight 102.97 kg Ping Reese LPN [facility].; [facility]. 11-28-2022 08:58-0400 Diastolic blood pressure 75 mm[Hg] Ping Reese LPN [facility].; [facility]. Comment on above: Patient Position: Sitting; Cuff Location : Left Arm; Cuff Size: Standard 11-28-2022 08:58-0400 Heart rate 73 /min Ping Reese LPN [facility].; [facility]. Comment on above: Pattern: Regular 11-28-2022 08:58-0400 Systolic blood pressure 135 mm[Hg] Ping Reese LPN [facility].; [facility]. Comment on above: Patient Position: Sitting; Cuff Location : Left Arm; Cuff Size: Standard 11-10-2022 15:35-0400 Diastolic blood pressure 86 mm[Hg] Bianka Vogel MD Work Phone: [facility].; [facility]. Comment on above: Patient Position: Sitting; Cuff Location : Left Arm; Cuff Size: Standard 11-10-2022 15:35-0400 Heart rate 75 /min Bianka Vogel MD Work Phone: [facility].; [facility]. Comment on above: Pattern: Regular 11-10-2022 15:35-0400 Systolic blood pressure 137 mm[Hg] Bianka Vogel MD Work Phone: [facility].; [place] [employer] [facility]. Comment on above: Patient Position: Sitting; Cuff Location : Left Arm; Cuff Size: Standard 10-21-2022 10:52-0500 Diastolic blood pressure 83 mm[Hg] Bianka Vogel MD Work Phone: [facility].; [facility]. Comment on above: Patient Position: Sitting; Cuff Location : Left Arm; Cuff Size: Standard 10-21-2022 10:52-0500 Systolic blood pressure 144 mm[Hg] Bianka Vogel MD Work Phone: [facility].; [employer]. Comment on above: Patient Position: Sitting; Cuff Location : Left Arm; Cuff Size: Standard 10-15-2022 10:23-0500 Diastolic blood pressure 103 mm[Hg] Miles Sage LPN [facility].; [employer]. Comment on above: Patient Position: Sitting; Cuff Location : Left Arm; Cuff Size: Standard 10-15-2022 10:23-0500 Systolic blood pressure 168 mm[Hg] Miles Sage LPN [facility].; [employer]. Comment on above: Patient Position: Sitting; Cuff Location : Left Arm; Cuff Size: Standard 10-15-2022 10:23-0500 Diastolic blood pressure 110 mm[Hg] Miles Sage LPN [facility].; [employer]. Comment on above: Patient Position: Sitting; Cuff Location : Left Arm; Cuff Size: Standard 10-15-2022 10:23-0500 Systolic blood pressure 186 mm[Hg] Miles Sage LPN [facility] [employer].; [employer]. Comment on above: Patient Position: Sitting; Cuff Location : Left Arm; Cuff Size: Standard 09-17-2022 10:54-0500 Body height 161.29 cm Bianka Vogel MD Work Phone: [facility].; [place] [employer] [facility] 09-17-2022 10:54-0500 Body mass index (BMI) [Ratio] 40.1 kg/m2 Bianka Vogel MD Work Phone: [facility].; [employer] [facility] 09-17-2022 10:54-0500 Body surface area Derived from formula 2.06 m2 Bianka Vogel MD Work Phone: [facility].; [employer]. 09-17-2022 10:54-0500 Body weight 104.33 kg Bianka Vogel MD Work Phone: [place] [employer].; [employer]. 09-17-2022 10:54-0500 Diastolic blood pressure 98 mm[Hg] Bianka Vogel MD Work Phone: [employer]. Comment on above: Patient Position: Sitting; Cuff Location : Left Arm; Cuff Size: Large 09-17-2022 10:54-0500 Heart rate 87 /min Bianka Vogel MD Work Phone: [employer] [employer]; [employer]. Comment on above: Pattern: Regular 09-17-2022 10:54-0500 Systolic blood pressure 170 mm[Hg] Bianka Vogel MD Work Phone: [place] [employer]. Comment on above: Patient Position: Sitting; Cuff Location : Left Arm; Cuff Size: Large 03-19-2022 14:52-0400 Body height 161.29 cm Afsaneh Adi [employer] REMOV[employer] WORKER Work Phone: [employer]; [employer]. 03-19-2022 14:52-0400 Body mass index (BMI) [Ratio] 38.71 kg/m2 Afsaneh Adi [employer]OV[employer] WORK[employer] Work Phone: [employer]; [employer]. 03-19-2022 14:52-0400 Body surface area Derived from formula 2.03 m2 Afsaneh Adi [employer] REMOVAL WORKER Work Phone: [employer]; [employer]. 03-19-2022 14:52-0400 Body weight 100.7 kg Afsaneh Adi [employer]OV[employer] WORK[employer] Work Phone: [employer].; [employer]. 03-19-2022 14:52-0400 Diastolic blood pressure 82 mm[Hg] Afsaneh Adi [employer] REMOV[employer] WORKER Work Phone: [employer].; [employer]. Comment on above: Patient Position: Sitting; Cuff Location : Left Arm; Cuff Size: Large 03-19-2022 14:52-0400 Heart rate 80 /min Afsaneh Adi [employer]OV[employer] WORK[employer] Work Phone: [employer].; [employer]. Comment on above: Pattern: Regular 03-19-2022 14:52-0400 Systolic blood pressure 130 mm[Hg] Afsaneh Adi [employer] REMOV[employer] WORKER Work Phone: [employer].; [employer]. Comment on above: Patient Position: Sitting; Cuff Location : Left Arm; Cuff Size: Large 10-23-2021 10:46-0500 Body height 161.29 cm Afsaneh Adi [employer] REMOV[employer] WORKER Work Phone: [employer].; [employer] 10-23-2021 10:46-0500 Body mass index (BMI) [Ratio] 37.66 kg/m2 [facility] [employer] REMOV[employer] WORKER Work Phone: [employer].; [employer] 10-23-2021 10:46-0500 Body surface area Derived from formula 2.01 m2 Afsaneh Adi [employer] REMOVAL WORKER Work Phone: [employer].; [employer] 10-23-2021 10:46-0500 Body weight 97.98 kg Afsaneh Adi [employer] REMOVAL WORKER Work Phone: [employer]. 10-23-2021 10:46-0500 Diastolic blood pressure 74 mm[Hg] Afsaneh Adi [employer] REMOVAL WORKER Work Phone: [employer].; [employer]. Comment on above: Patient Position: Sitting; Cuff Location : Left Arm; Cuff Size: Standard 10-23-2021 10:46-0500 Heart rate 86 /min Afsaneh Adi [employer] REMOV[employer] WORKER Work Phone: [employer].; [employer]. Comment on above: Pattern: Regular 10-23-2021 10:46-0500 Systolic blood pressure 133 mm[Hg] Afsaneh Adi [employer] REMOVAL WORKER Work Phone: [employer]. Comment on above: Patient Position: Sitting; Cuff Location : Left Arm; Cuff Size: Standard 07-24-2021 15:24-0500 Body height 161.29 cm Afsaneh Adi [employer] REMOVAL WORKER Work Phone: [employer]. 07-24-2021 15:24-0500 Body mass index (BMI) [Ratio] 38.19 kg/m2 Afsaneh Adi [employer] REMOVAL WORKER Work Phone: [employer]; [employer]. 07-24-2021 15:24-0500 Body surface area Derived from formula 2.02 m2 Afsaneh Adi [employer] REMOVAL WORKER Work Phone: [employer]; [employer]. 07-24-2021 15:24-0500 Body weight 99.34 kg Afsaneh Adi [employer] REMOV[employer] WORKER Work Phone: [employer]; [employer]. 07-24-2021 15:24-0500 Diastolic blood pressure 92 mm[Hg] Afsaneh Adi [employer] REMOV[employer] WORKER Work Phone: [employer]; [employer]. Comment on above: Patient Position: Sitting; Cuff Location : Left Arm; Cuff Size: Large 07-24-2021 15:24-0500 Heart rate 80 /min Afsaneh Adi [employer] REMOVAL WORKER Work Phone: [employer]; [employer]. Comment on above: Pattern: Regular 07-24-2021 15:24-0500 Systolic blood pressure 142 mm[Hg] Afsaneh Adi [employer] REMOVAL WORKER Work Phone: [employer]. Comment on above: Patient Position: Sitting; Cuff Location : Left Arm; Cuff Size: Large 03-27-2021 10:14-0400 Body height 161.29 cm Afsaneh Joshi LPN Work Phone: [employer]; [employer]. 03-27-2021 10:14-0400 Body mass index (BMI) [Ratio] 36.62 kg/m2 Afsaneh Joshi LPN Work Phone: [employer]; [employer]. 03-27-2021 10:14-0400 Body surface area Derived from formula 1.99 m2 Afsaneh Joshi LPN Work Phone: [employer]; [employer]. 03-27-2021 10:140400 Body temperature 98.5 [degF] Afsaneh Joshi LPN Work Phone: [employer]; [employer]. Comment on above: Method: Tympanic 03-27-2021 10:140400 Body weight 95.26 kg Afsaneh Joshi LPN Work Phone: [employer]; [employer]. 03-27-2021 10:14-0400 Diastolic blood pressure 82 mm[Hg] Afsaneh Joshi LPN Work Phone: [employer]; [employer]. Comment on above: Patient Position: Sitting; Cuff Location : Left Arm; Cuff Size: Large 03-27-2021 10:140400 Heart rate 75 /min Afsaneh Joshi LPN Work Phone: [employer]; [employer]. Comment on above: Pattern: Regular 03-27-2021 10:14-0400 Systolic blood pressure 144 mm[Hg] Afsaneh Nayaky [employer]OS REMOVAL WORKER Work Phone: [employer]; [employer]. Comment on above: Patient Position: Sitting; Cuff Location : Left Arm; Cuff Size: Large 01-17-2020 11:39-0400 Body weight 98.88 kg Afsaneh Joshi LPN Work Phone: [employer].; [employer] 01-17-2020 11:39-0400 Diastolic blood pressure 82 mm[Hg] Afsaneh Adi [employer]BE[employer]OS REMOVAL WORKER Work Phone: [email or web address] [employer]. Comment on above: Patient Position: Sitting; Cuff Location : Left Arm; Cuff Size: Standard 01-17-2020 11:39-0400 Heart rate 73 /min Afsaneh Adi [employer] REMOVAL WORKER Work Phone: [employer]. Comment on above: Pattern: Regular 01-17-2020 11:39-0400 Systolic blood pressure 174 mm[Hg] Afsaneh Adi [employer] REMOVAL WORKER Work Phone: [employer].; [employer]. Comment on above: Patient Position: Sitting; Cuff Location : Left Arm; Cuff Size: Standard 10-20-2019 14:18-0500 Body height 161.29 cm Afsaneh Adi [employer]BE[employer] REMOVAL WORKER Work Phone: [employer].; [employer]. 10-20-2019 14:18-0500 Body mass index (BMI) [Ratio] 35.74 kg/m2 Afsaneh Adi [employer] REMOVAL WORKER Work Phone: [employer].; [employer]. 10-20-2019 14:18-0500 Body surface area Derived from formula 1.97 m2 Afsaneh Adi [employer]BE[employer]OS REMOVAL WORKER Work Phone: [employer].; [employer]. 10-20-2019 14:18-0500 Body temperature 99.6 [degF] Afsaneh Adi [employer]BE[employer]OS REMOVAL WORKER Work Phone: [employer].; [employer]. Comment on above: Method: Tympanic 10-20-2019 14:18-0500 Body weight 92.99 kg Afsaneh Adi [employer] REMOVAL WORKER Work Phone: [employer].; [employer] 10-20-2019 14:18-0500 Diastolic blood pressure 84 mm[Hg] Afsaneh Adi [employer]BE[employer]OS REMOVAL WORKER Work Phone: [employer].; [employer]. Comment on above: Patient Position: Sitting; Cuff Location : Left Arm; Cuff Size: Standard 10-20-2019 14:18-0500 Heart rate 85 /min Afsaneh Joshi LPN Work Phone: [employer]; [employer]. Comment on above: Pattern: Regular 10-20-2019 14:18-0500 Inhaled oxygen concentration 20 % Afsaneh Joshi [employer] REMOVAL WORKER Work Phone: [employer]; [employer]. Comment on above: Room air 10-20-2019 14:18-0500 Inhaled oxygen concentration 21 % Afsaneh Joshi [employer]BE[employer]OS REMOVAL WORKER Work Phone: [employer]; [employer]. Comment on above: Room air 10-20-2019 14:18-0500 SaO2% (BldA) [Mass fraction] 94 % Afsaneh Joshi LPN Work Phone: [employer]; [employer] 10-20-2019 14:18-0500 Systolic blood pressure 141 mm[Hg] Afsaneh Joshi LPN Work Phone: [employer]; [employer]. Comment on above: Patient Position: Sitting; Cuff Location : Left Arm; Cuff Size: Standard 09-01-2019 10:53-0500 Body height 161.29 cm Afsaneh Joshi LPN Work Phone: [employer]; [employer] 09-01-2019 10:53-0500 Body mass index (BMI) [Ratio] 35.74 kg/m2 Afsanehbill Joshi LPN Work Phone: [employer]; [employer]. 09-01-2019 10:53-0500 Body surface area Derived from formula 1.97 m2 Afsaneh Joshi LPN Work Phone: [employer]; [employer] 09-01-2019 10:53-0500 Body weight 92.99 kg Afsaneh Joshi [employer] REMOVAL WORKER Work Phone: [employer].; [employer]. 09-01-2019 10:53-0500 Diastolic blood pressure 98 mm[Hg] Afsaneh Joshi [employer] REMOVAL WORKER Work Phone: [employer].; [employer]. Comment on above: Patient Position: Sitting; Cuff Location : Left Arm; Cuff Size: Large 09-01-2019 10:53-0500 Heart rate 80 /min Afsaneh Adi [employer] REMOVAL WORKER Work Phone: [employer].; [employer]. Comment on above: Pattern: Regular 09-01-2019 10:53-0500 Systolic blood pressure 180 mm[Hg] Afsaneh Adi [employer] REMOVAL WORKER Work Phone: [employer].; [employer]. Comment on above: Patient Position: Sitting; Cuff Location : Left Arm; Cuff Size: Large 05-23-2019 11:10-0400 Body height 161.29 cm Bianka Vogel MD Work Phone: [employer].; [employer]. 05-23-2019 11:10-0400 Body mass index (BMI) [Ratio] 36.96 kg/m2 Bianka Vogel MD Work Phone: [employer].; [employer]. 05-23-2019 11:10-0400 Body surface area Derived from formula 1.99 m2 Bianka Vogel MD Work Phone: [employer].; [employer]. 05-23-2019 11:10-0400 Body weight 96.16 kg Bianka Vogel MD Work Phone: [employer].; [employer]. 05-23-2019 11:10-0400 Diastolic blood pressure 88 mm[Hg] Bianka Vogel MD Work Phone: [employer].; [employer]. Comment on above: Patient Position: Sitting; Cuff Location : Left Arm; Cuff Size: Large 05-23-2019 11:10-0400 Heart rate 78 /min Bianka Vogel MD Work Phone: [employer]; [employer]. Comment on above: Pattern: Regular 05-23-2019 11:10-0400 Systolic blood pressure 178 mm[Hg] Bianka Vogel MD Work Phone: [employer]. Comment on above: Patient Position: Sitting; Cuff Location : Left Arm; Cuff Size: Large 02-23-2019 11:19-0400 Body weight 99.79 kg Bianka Vogel MD Work Phone: [employer]; [employer]. 02-23-2019 11:19-0400 Diastolic blood pressure 93 mm[Hg] Bianka Vogel MD Work Phone: [employer]; [employer]. Comment on above: Patient Position: Sitting; Cuff Location : Left Arm; Cuff Size: Standard 02-23-2019 11:19-0400 Heart rate 76 /min Bianka Vogel MD Work Phone: [employer]; [employer]. Comment on above: Pattern: Regular 02-23-2019 11:19-0400 Systolic blood pressure 156 mm[Hg] Bianka Vogel MD Work Phone: [employer]; [employer] Comment on above: Patient Position: Sitting; Cuff Location : Left Arm; Cuff Size: Standard 01-28-2019 09:44-0400 Body height 161.29 cm [facility] Work Phone: [employer]; [employer]. 01-28-2019 09:44-0400 Body mass index (BMI) [Ratio] 38.01 kg/m2 [facility] Work Phone: [employer]; [employer]. 01-28-2019 09:44-0400 Body surface area Derived from formula 2.02 m2 Afsaneh Adi [employer] REMOVAL WORKER Work Phone: [employer].; [employer]. 01-28-2019 09:44-0400 Body weight 98.88 kg Afsaneh Joshi LPN Work Phone: [employer].; [employer]. 01-28-2019 09:44-0400 Diastolic blood pressure 94 mm[Hg] Afsaneh Adi [employer] REMOVAL WORKER Work Phone: [employer].; [employer]. Comment on above: Patient Position: Sitting; Cuff Location : Left Arm; Cuff Size: Large 01-28-2019 09:44-0400 Heart rate 84 /min Afsaneh Adi LPN Work Phone: [employer]; [employer]. Comment on above: Pattern: Regular 01-28-2019 09:44-0400 Systolic blood pressure 184 mm[Hg] Afsaneh Joshi [employer] REMOVAL WORKER Work Phone: [employer].; [employer]. Comment on above: Patient Position: Sitting; Cuff Location : Left Arm; Cuff Size: Large 08-24-2017 13:04-0500 Body height 161.29 cm Radha Johnson RN [employer].; [employer]. 08-24-2017 13:04-0500 Body mass index (BMI) [Ratio] 39.49 kg/m2 Radha Johnson RN [employer].; [employer] 08-24-2017 13:04-0500 Body surface area Derived from formula 2.05 m2 Radha Johnson RN [employer].; [employer]. 08-24-2017 13:04-0500 Body temperature 98.2 [degF] Radha Johnson RN [employer].; [employer]. Comment on above: Method: Tympanic 08-24-2017 13:04-0500 Body weight 102.74 kg Radha Johnson RN [employer].; [employer]. 08-24-2017 13:04-0500 Diastolic blood pressure 98 mm[Hg] Radha Johnson RN [employer]. Comment on above: Patient Position: Sitting; Cuff Location : Left Arm; Cuff Size: Standard 08-24-2017 13:04-0500 Heart rate 83 /min Radha Johnson RN [employer].; [employer]. Comment on above: Pattern: Regular 08-24-2017 13:04-0500 Systolic blood pressure 188 mm[Hg] Radha Johnson RN [employer].; [employer]. Comment on above: Patient Position: Sitting; Cuff Location : Left Arm; Cuff Size: Standard 03-04-2016 09:46-0400 Body temperature 97.5 [degF] Salma Breen LPN [employer].; [employer]. Comment on above: Method: Tympanic 03-04-2016 09:46-0400 Body weight 104.1 kg Salma Breen LPN [employer].; [employer]. 03-04-2016 09:46-0400 Diastolic blood pressure 78 mm[Hg] Salma Breen LPN [employer].; [employer]. Comment on above: Patient Position: Sitting; Cuff Location : Left Arm; Cuff Size: Standard 03-04-2016 09:46-0400 Heart rate 42 /min Salma Breen LPN [employer].; [employer]. Comment on above: Pattern: Regular 03-04-2016 09:46-0400 Systolic blood pressure 144 mm[Hg] Salma Breen LPN [employer].; [employer]. Comment on above: Patient Position: Sitting; Cuff Location : Left Arm; Cuff Size: Standard 02-26-2016 11:30-0400 Body temperature 98 [degF] Bianka Vogel MD Work Phone: [employer].; [employer]. Comment on above: Method: Tympanic 02-26-2016 11:30-0400 Body weight 102.97 kg Bianka Vogel MD Work Phone: [employer].; [employer]. 02-26-2016 11:30-0400 Diastolic blood pressure 63 mm[Hg] Bianka Vgoel MD Work Phone: [employer].; [employer]. Comment on above: Patient Position: Sitting; Cuff Location : Left Arm; Cuff Size: Standard 02-26-2016 11:30-0400 Heart rate 76 /min Bianka Vogel MD Work Phone: [employer].; [employer]. Comment on above: Pattern: Regular 02-26-2016 11:30-0400 Systolic blood pressure 148 mm[Hg] Bianka Vogel MD Work Phone: [employer].; [employer]. Comment on above: Patient Position: Sitting; Cuff Location : Left Arm; Cuff Size: Standard 07-03-2010 10:55-0500 Body temperature 99.3 [degF] Afsaneh Adi [employer] REMOVAL WORKER Work Phone: [employer].; [employer]. Comment on above: Method: Tympanic 07-03-2010 10:55-0500 Body weight 102.51 kg Afsaneh Adi [employer] REMOVAL WORKER Work Phone: [employer].; [employer]. 07-03-2010 10:55-0500 Diastolic blood pressure 87 mm[Hg] Afsaneh Adi [employer] REMOVAL WORKER Work Phone: [employer].; [employer]. Comment on above: Patient Position: Sitting; Cuff Location : Left Arm; Cuff Size: Large 07-03-2010 10:55-0500 Heart rate 92 /min Afsaneh Adi [employer] REMOVAL WORKER Work Phone: [employer].; [employer]. Comment on above: Pattern: Regular 07-03-2010 10:55-0500 Systolic blood pressure 148 mm[Hg] Afsaneh Adi [employer] REMOVAL WORKER Work Phone: [employer]; [employer] Comment on above: Patient Position: Sitting; Cuff Location : Left Arm; Cuff Size: Large Encounters Encounter Date Encounter Type Care Provider Facility Start: 10-26-2024 End: 10-26-2024 Historical Summary Bianka Vogel MD Work Phone: [employer] Start: 10-25-2024 End: 10-25-2024 Patient encounter procedure Bianka Vogel MD Work Phone: [employer] Start: 10-25-2024 Follow-up encounter Bianka marti MD Work Phone: [employer] Start: 10-21-2024 End: 10-21-2024 Historical Summary Bianka Vogel MD Work Phone: [employer] Start: 07-11-2024 End: 07-11-2024 Office outpatient visit 15 minutes Bianka Vogel MD Work Phone: [employer] Start: 06-30-2024 End: 06-30-2024 Historical Summary Bianka Vogel MD Work Phone: [employer] Start: 02-22-2024 End: 02-22-2024 Office outpatient visit 15 minutes Bianka Vogel MD Work Phone: [employer] Start: 02-22-2024 Follow-up encounter Bianka marti MD Work Phone: [employer] Start: 12-02-2023 End: 12-02-2023 Orders Bianka Vogel MD Work Phone: [employer] Start: 08-26-2023 End: 08-26-2023 Office outpatient visit 25 minutes Bianka Vogel MD Work Phone: [employer] Start: 04-10-2023 End: 04-10-2023 Patient encounter procedure Bianka Vogel MD Work Phone: [employer] Start: 02-05-2023 Encounter for other preprocedural examination [facility] Start: 01-07-2023 End: 01-07-2023 Office outpatient visit 15 minutes Bian[facility] Vogel MD [facility] Start: 11-28-2022 End: 11-28-2022 Patient encounter procedure Bianka Vogel MD Work Phone: [facility] Start: 11-17-2022 End: 11-17-[address] Bianka Vogel Work Phone: [facility] Work Phone: Start: 11-17-2022 End: 11-17-[address] Bianka Vogel Work Phone: [facility]-Pre-Admissi on Testing Start: 11-17-2022 End: 11-17-2022 ambulatory [facility] Start: 11-17-2022 End: 11-17-2022 Non-patient / Non-visit Dr. Bianka Vogel Work Phone: [facility] [employer] Start: 11-17-2022 End: 11-17-2022 ambulatory [facility] Work Phone: Start: 11-17-2022 End: 11-17-2022 Patient encounter procedure [facility]-Cat Scan, [facility] Start: 11-10-2022 End: 11-10-2022 Orders Bianka Vogel MD Work Phone: [email or web address] Start: 10-21-2022 End: 10-21-2022 Nursing evaluation of patient and report Bianka Vogel MD Work Phone: [email or web address] Start: 10-17-2022 End: 10-17-2022 ambulatory [facility] Work Phone: Start: 10-17-2022 End: 10-17-2022 Discharged Recurring [facility]-Physical Therapy Start: 10-15-2022 End: 10-15-2022 Orders Bianka Vogel MD Work Phone: [employer] Start: 09-17-2022 End: 09-17-2022 Patient encounter procedure Bianka Vogel MD Work Phone: [employer] Start: 09-04-2022 Registered Recurring [facility]-Physical Therapy Start: 08-25-2022 End: 08-25-2022 ambulatory Joe Martinez [facility] Work Phone: Start: 08-25-2022 End: 08-25-2022 Patient encounter procedure [facility]-Laboratory Start: 05-12-2022 End: 05-12-2022 Orders Bianka Vogel MD Work Phone: [employer] Start: 05-06-2022 End: 05-06-2022 ambulatory [facility] Start: 03-21-2022 End: 03-21-2022 ambulatory [facility] Start: 03-19-2022 End: 03-19-2022 Patient encounter procedure Bianka Vogel MD Work Phone: [employer] Start: 11-22-2021 End: 11-22-2021 Historical Summary Bianka Vogel MD Work Phone: [employer] Start: 10-23-2021 End: 10-23-2021 Patient encounter procedure Bianka Vogel MD Work Phone: [employer] Start: 08-01-2021 End: 08-01-2021 Orders Bianka Vogel MD Work Phone: [employer] Start: 07-24-2021 End: 07-24-2021 Patient encounter procedure Bianka Vogel MD Work Phone: [employer] Start: 05-06-2021 End: 05-06-2021 Orders Bianka Vogel MD Work Phone: [employer] Start: 03-27-2021 End: 03-27-2021 Patient encounter procedure Bianka Vogel MD Work Phone: [employer] Start: 01-17-2020 End: 01-17-2020 Orders Bianka Vogel MD Work Phone: [employer] Start: 10-20-2019 End: 10-20-2019 Office outpatient visit 15 minutes Bianka Vogel MD Work Phone: [employer] Start: 09-01-2019 End: 08-30-2019 Historical Summary Bianka Vogel MD Work Phone: [employer] Start: 09-01-2019 End: 09-01-2019 Office outpatient visit 15 minutes Bianka Vogel MD Work Phone: [employer] Start: 05-23-2019 End: 05-23-2019 Office outpatient visit 15 minutes Bianka Vogel MD Work Phone: [employer] Start: 02-23-2019 End: 02-23-2019 Patient encounter procedure Bianka Vogel MD Work Phone: [employer] Start: 01-28-2019 End: 01-31-2019 Historical Summary Bianka Vogel MD Work Phone: [employer] Start: 01-28-2019 End: 01-28-2019 Patient encounter procedure Bianka Vogel MD Work Phone: [employer] Start: 08-24-2017 End: 08-24-2017 Patient encounter procedure Bianka Vogel MD Work Phone: [employer] Start: 03-04-2016 End: 03-04-2016 Patient encounter procedure Bianka Vogel MD Work Phone: [employer] Start: 02-26-2016 End: 02-26-2016 Patient encounter procedure Bianka Vogel MD Work Phone: [employer] Start: 08-06-2010 End: 08-07-2010 Patient encounter procedure Bianka Vogel MD Work Phone: [employer] [facility] Start: 07-03-2010 End: 07-03-2010 Patient encounter procedure Bianka Vogel MD Work Phone: [employer] [facility] Date Procedure Procedure Detail Performing Clinician Start: 02-02-2025 End: 02-02-2025 Most Recent Endo Report Bianka Vogel MD Work Phone: Comment on above: no records Start: 01-12-2025 End: 01-12-2025 Most Recent Endo Report Bianka Vogel MD Work Phone: Comment on above: no records Start: 10-25-2024 End: 10-25-2024 Removal impacted cerumen instrumentation unilat Bianka Vogel MD Work Phone: Start: 10-25-2024 End: 10-25-2024 uACR Bianka Vogel MD Work Phone: Comment on above: Positive Finding. Start: 10-21-2024 End: 10-21-2024 Most Recent Endo Report Afsaneh Joshi LPN Work Phone: Comment on above: no Endocrinology rec ords Start: 07-11-2024 End: 07-11-2024 Hemoglobin A1c/Hemoglobin.total in Blood Afsaneh Joshi LPN Work Phone: Comment on above: 9.6 Start: 07-11-2024 End: 07-11-2024 Most recent diastolic blood pressure 80-89 mm hg Bianka Vogel MD Work Phone: Start: 07-11-2024 End: 07-11-2024 Most recent hemoglobin a1c level >9.0% Bianka Vogel MD Work Phone: Start: 07-11-2024 End: 07-11-2024 Most recent systolic blood pres>/equal 140 mm hg Bianka Vogel MD Work Phone: Start: 02-22-2024 End: 02-22-2024 Most recent diastolic blood pressure 80-89 mm hg Bianka Vogel MD Work Phone: Start: 02-22-2024 End: 05-24-2024 Most recent hg a1c>equal to 8.0%& Bianka Vogel MD Work Phone: Start: 02-22-2024 End: 02-22-2024 Most recent systolic blood pres>/equal 140 mm hg Bianka Vogel MD Work Phone: Start: 08-26-2023 End: 08-26-2023 Most recent diastolic blood pressure < 80 mm hg Bianka Vogel MD Work Phone: Start: 08-26-2023 End: 08-26-2023 Most recent systolic blood pressure <130 mm hg Bianka Vogel MD Work Phone: Start: 08-26-2023 End: 08-26-2023 UA P:C Ratio Afsaneh Joshi LPN Work Phone: Comment on above: Abnormal. Start: 04-10-2023 End: 04-10-2023 Most recent diastolic blood pressure < 80 mm hg Bianka Vogel MD Work Phone: Start: 04-10-2023 End: 04-10-2023 Most recent hemoglobin a1c level >9.0% Bianka Vogel MD Work Phone: Start: 04-10-2023 End: 04-10-2023 Most recent systolic blood pres>/equal 140 mm hg Bianka Vogel MD Work Phone: Start: 01-16-2023 End: 01-16-2023 Examination of retina Afsaneh Joshi ASBESTOS REMOVAL WORKER Work Phone: Comment on above: Positive Finding. Di abetic Retinopathy left. Boo Laird O.D. Start: 12-15-2022 End: 12-15-2022 Hemoglobin A1c/Hemoglobin.total in Blood Afsaneh Joshi LPN Work Phone: Comment on above: 9.4 Start: 11-17-2022 MRI of lower extremity Start: 09-17-2022 End: 09-17-2022 Most recent diastol blood pres >/equal 90 mm hg Bianka Vogel MD Work Phone: Start: 09-17-2022 End: 09-17-2022 Most recent hemoglobin a1c level < 7.0% Bianka Vogel MD Work Phone: Start: 09-17-2022 End: 09-17-2022 Most recent systolic blood pres>/equal 140 mm hg Bianka Vogel MD Work Phone: Start: 09-17-2022 End: 09-17-2022 Removal impacted cerumen instrumentation unilat Bianka Vogel MD Work Phone: Start: 04-17-2022 End: 04-17-2022 UA P:C Ratio Afsaneh Joshi [employer]OV[employer] WORK[employer] Work Phone: Comment on above: Abnormal. at nephrol ogy protein <6 Start: 03-19-2022 End: 03-19-2022 Body mass index documented Bianka Vogel MD Work Phone: Start: 03-19-2022 End: 03-19-2022 Most recent hemoglobin a1c level < 7.0% Bianka Vogel MD Work Phone: Start: 03-19-2022 End: 03-21-2022 Radiologic exam knee complete 4/more views Bianka Vogel MD Work Phone: Start: 10-23-2021 End: 10-23-2021 Body mass index documented Bianka Vogel MD Work Phone: Start: 10-23-2021 End: 10-23-2021 Most recent diastolic blood pressure < 80 mm hg Bianka Vogel MD Work Phone: Start: 10-23-2021 End: 11-09-2023 Most recent hg a1c>equal to 7.0%&<8.0% Bianka Vogel MD Work Phone: Start: 10-23-2021 End: 10-23-2021 Most recent systolic blood press 130-139mm hg Bianka Vogel MD Work Phone: Start: 07-24-2021 End: 07-24-2021 Most recent diastol blood pres >/equal 90 mm hg Bianka Vogel MD Work Phone: Start: 07-24-2021 End: 07-24-2021 Most recent hemoglobin a1c level < 7.0% Bianka Vogel MD Work Phone: Start: 07-24-2021 End: 07-24-2021 Most recent systolic blood pres>/equal 140 mm hg Bianka Vogel MD Work Phone: Start: 03-27-2021 End: 03-27-2021 Body mass index documented Bianka Vogel MD Work Phone: Start: 03-27-2021 End: 03-27-2021 Most recent hemoglobin a1c level >9.0% Bianka Vogel MD Work Phone: Start: 05-23-2019 End: 05-23-2019 Flu imm no admin doc dorys Bianka griggs MD Work Phone: Start: 05-23-2019 End: 05-23-2019 Flu vaccine refused Pingghulam Reese PRISCILA Start: 05-23-2019 End: 05-23-2019 Most recent diastolic blood pressure 80-89 mm hg Bianka Vogel MD Work Phone: Start: 05-23-2019 End: 05-23-2019 Most recent hemoglobin a1c level gt 7.0-9.0 % Bianka Vogel MD Work Phone: Start: 05-23-2019 End: 05-23-2019 Most recent systolic blood pres>/equal 140 mm hg Bianka Vogel MD Work Phone: Start: 05-23-2019 End: 05-23-2019 No Known Health Maintenance History Afsaneh Joshi LPN Work Phone: Start: 01-28-2019 End: 01-28-2019 Body mass index documented Bianka Vogel MD Work Phone: Start: 01-28-2019 End: 01-31-2019 Ct limited/localized follow up study Bianka Vogel MD Work Phone: Start: 08-24-2017 End: 08-24-2017 Body mass index documented Wendie D [place] PA-C Work Phone: Start: 03-04-2016 End: 03-04-2016 Removal impacted cerumen instrumentation unilat Wendie Mensah PA-C Work Phone: Start: 12-11-2006 End: 12-11-2006 Cholecystectomy Afsaneh Joshi LPN Work Phone: Start: 07-21-2005 End: 07-21-2005 Microscopic examination of cervical Papanicolaou smear Ping Reese [employer] REMOVAL WORKER Comment on above: Normal. History of cholecystectomy History of cholecystectomy Afsaneh Joshi [employer] REMOVAL WORKER Work Phone: History of cholecystectomy History of cholecystectomy Bianka Vogel MD Work Phone: Lipid panel Afsaneh Joshi LP N Work Phone: Comment on above: never Nasal Screen MRSA/MSSA Dr. Isrrael Vogel Work Phone: Plan of Treatment Date Care Activity Detail Author Start: 02-15-2025 Patient encounter procedure Me dical; EXTENDED RTN - 3 mo rtn [employer]. Start: 15-Feb-2025 14:50-04:00 MD Bianka Vogel Appointment Request [facility] [employer] [facility] [employer]. Start: 01-25-2025 Patient encounter procedure Me dical; EXTENDED RTN - 3 mo rtn [facility] [employer] [facility] [employer]. Start: 25-Jan-2025 10:20-04:00 MD Bianka Vogel Appointment Request [facility] [employer] [facility] [employer]. Start: 10-25-2024 Removal impacted cer umen instrumentation unilat REMOVE IMPACTED EAR WAX (99937) Start: 25-Oct-2024 Intent [employer] [employer]. Start: 10-25-2024 Lipid panel LIPID PANEL (8 0061) Start: 25-Oct-2024 10:50-04:00 Request [employer] [employer]. Start: 10-25-2024 Blood count complete auto&auto difrntl wbc CBC, PLATELETS & AUT DIFF (F) (29137) Start: 25-Oct-2024 10:50-04:00 Request [employer] [employer]. Start: 10-25-2024 Comprehensive metabo lic panel CMP w/ GFR* (51961) Start: 25-Oct-2024 10:50-04:00 Request [employer] [employer]. Start: 10-25-2024 Urine albumin quantitative YENY ROALBUMIN, RANDOM URINE W/ CREATININE [uACR] (89977,13889) (90508) Start: 25-Oct-2024 08:02-04:00 Request [employer] [employer]. Start: 10-05-2024 Patient encounter procedure Me dical; EXTENDED RTN - 3 month f/u [employer]. Start: 05-Oct-2024 10:50-05:00 MD Bianka Vogel Appointment Request [employer]. Start: 07-11-2024 Patient encounter procedure Me dical; EXTENDED RTN - 3 MO RTN [employer]. Start: 11-Jul-2024 14:50-05:00 MD Bianka Vogel Appointment Request [facility] [employer] [facility] [employer]. Start: 05-30-2024 Patient encounter procedure Me dical; EXTENDED RTN - 3 MO RTN [employer]. Start: 30-May-2024 10:50-04:00 MD Bianka Vogel Appointment Request [facility] [employer] [facility] [employer]. Start: 02-22-2024 Most recent hg a1c>e qual to 8.0%& MOST RECENT HEMOGLOBIN A1C LEVEL 8.0-9.0% (3052F) Start: 22-Feb-2024 Intent [employer] [employer]. Start: 02-22-2024 Patient encounter procedure [employer]. Start: 02-22-2024 Hemoglobin glycosylated a1c Hg b A1C, fingerstick (52994) Start: 22-Feb-2024 08:10-04:00 Request [employer] [employer]. Start: 12-02-2023 Hemoglobin glycosylated a1c Hg b A1c (fingerstick)(89735) Start: 02-Dec-2023 Request [employer] [employer]. Start: 11-23-2023 Nursing evaluation o f patient and report Medical; Nurse visit - N8G--OTF [facility] Start: 23-Nov-2023 10:00 NURSE, GITA Appointment Request [facility] Start: 10-16-2023 Hemoglobin glycosylated a1c Hg b A1c (fingerstick)(36446) Start: 16-Oct-2023 Request [facility]; [employer] Start: 10-23-2021 Most recent hg a1c>e qual to 7.0%&<8.0% MOST RECENT HEMOGLOBIN A1C LEVEL 7.0 - 7.9% (3051F) Start: 23-Oct-2021 Intent [facility]; [facility] Payers Date Payer Category Payer Self-pay 2022 Unknown [id number] 1970 Unknown [id number] [id number] [id number] 1970 Unknown [id number] 2.16.84 [id number] Unknown 29 Unknown Unknown [id number] 2.16.8 [id number] Unknown [id number] 2.16.8 [id number] Unknown [id number] 2.16.8 [id number] Unknown [id number] 2.16.8 [id number] Unknown [id number] 2.16.8 [id number] Social History Date Type Detail Facility [facility] Work Phone: Start: 1970 Sex Assigned At Female [facility] Start: 11-12-2022 [facility] smoked [facility] Non Smoker/No Tobacc o Use Non Smoker/No Tobacco Use [email or web address] Tobacco Use: Tobacco Use: ; N ever smoker. [employer] [employer] Never smoked tobacco [email or web address] [employer]. Work Phone: Medical Equipment Procedure Code Equipment Code Equipment Origin al Text Equipment Identifier Dates [id number] Start: 11-28-2022 Comment on above: test strips [id number] Start: 04-01-2023 [id number] Start: 11-20-2021 End: 04-27-2023 Comment on above: 1 box [id number] Start: 03-04-2024 History and physical note 11-10-2022 Note Date & Type Note Facility 11-10-2022 History and physi flo note Note Date/Time November 10, 2022 12:52pm [facility] Medical Records Department [address] [place] [id number] History & Physical Exam 11/10/22 1252 MR#: [id number] Acct: [id number] Name: MABEL ENGLISH Rep #:[id number] : 1970 51 From: Macario GOLDBERG PA-C PCP: Dr. Bianka Vogel MD Status:P RE [facility] Location: [facility] History and Physical History and Physical? Patient Name: Nohemi English : 1970 From:? MACARIO WOODS PA-C? DATE OF SURGERY:? 11/26/2022 SCHEDULED PROCEDURE:? Right total knee arthroplasty HISTORY OF PRESENT ILLNESS: Preoperative history and physical exam was performed on November 10, 2022.? This radha 51-year-old female who has been having ongoing pain for over 1 year with her right knee.? There is been no trauma or injury.? Her pain as being constant, aching, sharp, sore.? She has increased pain with going up and down stairs, walking, standing and sitting.? She does have start up pain.? Pain is increased with activities of daily living including any outside work such as mowing the lawn.? Patient states the pain occasionally wakes her at nighttime.? She has attempted conservative measures including rest and ice with no relief in symptoms.? She has tried heat and elevation with minimal relief.? She has tried home exercises with minimal relief.? She has tried restorative care technician without relief in symptoms.? She has tried yrhp-ekm-yalbekf medications including topical ointments, anti-inflammatory supplements and Tylenol with minimal relief.? She has medical history pertinent for hypertension and type 2 diabetes mellitus.? She denies past history of surgery on the right knee.? After failing conservative measures and discussing treatment options with Dr. Joe Martinez, the patient does wish to proceed with a right total knee arthroplasty.? We are obtaining surgical clearance from the primary care physician.? She currently denies any recent chest pain, shortness of breath, fevers chills or recent infections.? Patient denies past history of DVT or pulmonary embolism. REVIEW OF SYSTEMS: Review Of Systems: Constitutional: Denies change in appetite, fever and weight change. Cardiovasular: Denies chest pain, heart murmur and irregular heartbeat. Respiratory: Denies cough, pneumonia, shortness of breath, tuberculosis and wheezing. Gastrointestinal: Denies constipation, diarrhea, heartburn, nausea, rectal itching, bloody stools and vomiting. Musculoskeletal: Denies leg swelling, pain, trouble walking and weakness. Skin: Denies Raynaud's, history of shingles and tattoo. Neurological: Denies ambulatory dysfunction, dizziness, numbness/tingling and tremor. Psychiatric: Denies anxiety, insomnia and stress. Hematologic/Lymphatic: Denies anemia, bleeding/bruising tendency and past transfusion. Reviewed, no changes. PAST MEDICAL HISTORY: Advance Care Plan: No Advance Directives Effective Date: 08/25/2022 Past Medical History: Medical Problems: Diabetes, High Blood Pressure Accidents: None Surgical Hx: Gallbladder - (2006) [facility] ? Anesthesia Complications: None Assistive Devices: Glasses Reviewed and updated. SOCIAL HISTORY: Social History: Marital: .Occupation: Homemaker.Work Status: Currently Working.Hand Dominance: Right-handed. Personal Habits:? Cigarette Use: Never Smoked Cigarettes.Smokeless Tobacco: Never Used Smokeless Tobacco.E-Cigarette Use: Never used.Alcohol: Denies use.Drug Use: Denies Use.Enjoy Exercising: Exercises 1-3 X/Week. Reviewed, no changes. VITALS: Ht: 63 Wt: 228lb Wt k.421 BMI: 40.4 BP: 142/84 Pulse: 83 Resp: 16 T: 97.2T: 36.2C Pain Level: 3 O2SatR: 98 ALLERGIES: No Known Drug Allergy? MEDICATIONS: Insulin Aspart 100 Unit/ML 10mL DAILY, Lisinopril 5 mg one tab PO once daily- PTunsure of correct dosage PRE-OP EXAM:? General appearance:NORMAL? ? ? Other: Eyes: Conjunctivae and lids: NORMAL? Pupils: ERR Ears, Nose, Mouth, and Throat: NORMAL? Other: Inspection of lips, teeth and gums: NORMAL? ?Other: Neck: Examination of neck: no masses noted. Respiratory: Assessment of respiratory effort: NORMAL? ?Other: ?Auscultation of lungs: clear to auscultation no wheezes, rhonchi or rales. Cardiovascular:? Auscultation of heart: regular rate and rhythm, no murmurs, gallops or rubs. PHYSICAL EXAMINATION: Right knee is without erythema or signs of infection.? Patient does walk with anantalgic gait.? There is tenderness to palpation along the medial joint line.? She has fixed varus alignment.? Moderate effusion.? Range of motion: Lacks 10 full extension to 90 flexion.? Sensation intact to light touch. IMAGING STUDIES: Previous x-rays of the right knee reveal varus alignment with medial joint spacenarrowing, subchondral sclerosis, osteophyte formation consistent with severe stage IV erosive right knee osteoarthritis. IMPRESSION: 1.? Severe right knee osteoarthritis with varus alignment 2.? Type 2 diabetes mellitus 3.? Hypertension PLAN: Dr. Joe Martinez did discuss and review with the patient all treatment options including surgical versus nonsurgical options.? Patient does wish to proceed with the above-stated procedure.? Potential risks, benefits, and complications of the procedure were discussed in detail including but not limited to , infection, nerve and blood vessel damage, persistent pain, numbness, tingling, paresthesias, blood clot, pulmonary embolism, and requirement for possible further surgery.? The patient expressed full understanding and has no further questions for the doctor.? Patient does agree to proceed with the above-stated procedure and has signed the surgery consent form. This dictation was created using voice recognition software. Phonetic and/or grammatical errors may exist. ___? I have re-examined the patient.? There are no clinical changes since date of exam. ___? See progress notes for changes. ___? Dictated on admission Date: ? ? ?Time: Signature: __ 11/10/22 1252 <Electronically signed by Macario GOLDBERG PA-C> Cosigner Signature (if applicable): CC: LEWIS Woods; Dr. Bianka Vogel MD~ Signed [facility] Work Phone: Clinical Note 11-10-2022 Note Date & Type Note Facility 11-10-2022 Note [facility] Medical Records Department [address] [place] [address] History Physical Exam 11/10/22 1252 MR#: [id number] Acct: [id number] Name: MABEL ENGLISH Rep #: [id number] : 1970 51 From: Macario GOLDBERG PA-C PCP: Dr. Bianka Vogel MD Status:PRE [facility] Location: [facility] History and Physical History and Physical??? Patient Name: Nohemi English : 1970 From:??? MACARIO WOODS PA-C??? DATE OF SURGERY:??? 11/26/2022 SCHEDULED PROCEDURE:??? Right total knee arthroplasty HISTORY OF PRESENT ILLNESS: Preoperative history and physical exam was performed on November 10, 2022.??? This is a 51-year-old female who has been having ongoing pain for over 1 year with her right knee.??? There is been no trauma or injury.??? Her pain as being constant, aching, sharp, sore.??? She has increased pain with going up and down stairs, walking, standing and sitting.??? She does have start up pain.??? Pain is increased with activities of daily living including any outside work such as mowing the lawn.??? Patient states the pain occasionally wakes her at nighttime.??? She has attempted conservative measures including rest and ice with no relief in symptoms.??? She has tried heat and elevation with minimal relief.??? She has tried home exercises with minimal relief.??? She has tried restorative care technician without relief in symptoms.??? She has tried vnsf-rog-rgpjlmf medications including topical ointments, anti-inflammatory supplements and Tylenol with minimal relief.??? She has medical history pertinent for hypertension and type 2 diabetes mellitus.??? She denies past history of surgery on the right knee.??? After failing conservative measures and discussing treatment options with Dr. Joe Martinez, the patient does wish to proceed with a right total knee arthroplasty.??? We are obtaining surgical clearance from the primary care physician.??? She currently denies any recent chest pain, shortness of breath, fevers chills or recent infections.??? Patient denies past history of DVT or pulmonary embolism. REVIEW OF SYSTEMS: Review Of Systems: Constitutional: Denies change in appetite, fever and weight change. Cardiovasular: Denies chest pain, heart murmur and irregular heartbeat. Respiratory: Denies cough, pneumonia, shortness of breath, tuberculosis and wheezing. Gastrointestinal: Denies constipation, diarrhea, heartburn, nausea, rectal itching, bloody stools and vomiting. Musculoskeletal: Denies leg swelling, pain, trouble walking and weakness. Skin: Denies Raynaud's, history of shingles and tattoo. Neurological: Denies ambulatory dysfunction, dizziness, numbness/tingling and tremor. Psychiatric: Denies anxiety, insomnia and stress. Hematologic/Lymphatic: Denies anemia, bleeding/bruising tendency and past transfusion. Reviewed, no changes. PAST MEDICAL HISTORY: Advance Care Plan: No Advance Directives Effective Date: 08/25/2022 Past Medical History: Medical Problems: Diabetes, High Blood Pressure Accidents: None Surgical Hx: Gallbladder - (2006) [facility] ??? Anesthesia Complications: None Assistive Devices: Glasses Reviewed and updated. SOCIAL HISTORY: Social History: Marital: .Occupation: Homemaker.Work Status: Currently Working.Hand Dominance: Right-handed. Personal Habits:??? Cigarette Use: Never Smoked Cigarettes.Smokeless Tobacco: Never Used Smokeless Tobacco.E-Cigarette Use: Never used.Alcohol: Denies use.Drug Use: Denies Use.Enjoy Exercising: Exercises 1-3 X/Week. Reviewed, no changes. VITALS: Ht: 63 Wt: 228lb Wt k.421 BMI: 40.4 BP: 142/84 Pulse: 83 Resp: 16 T: 97.2 T: 36.2C Pain Level: 3 O2SatR: 98 ALLERGIES: No Known Drug Allergy??? MEDICATIONS: Insulin Aspart 100 Unit/ML 10mL DAILY, Lisinopril 5 mg one tab PO once daily- PT unsure of correct dosage PRE-OP EXAM:??? General appearance:NORMAL? Other: Eyes: Conjunctivae and lids: NORMAL??? Pupils: ERR Ears, Nose, Mouth, and Throat: NORMAL??? Other: Inspection of lips, teeth and gums: NORMAL?Other: Neck: Examination of neck: no masses noted. Respiratory: Assessment of respiratory effort: NORMAL?Other: ?Auscultation of lungs: clear to auscultation no wheezes, rhonchi or rales. Cardiovascular:??? Auscultation of heart: regular rate and rhythm, no murmurs, gallops or rubs. PHYSICAL EXAMINATION: Right knee is without erythema or signs of infection.??? Patient does walk with an antalgic gait.??? There is tenderness to palpation along the medial joint line.??? She has fixed varus alignment.??? Moderate effusion.??? Range of motion: Lacks 10 full extension to 90 flexion.??? Sensation intact to light touch. IMAGING STUDIES: Previous x-rays of the right knee reveal varus alignment with medial joint space (more content not included)... [facility] Discharge summary 10-17-2022 Note Date & Type Note Facility 10-17-2022 Discharge summary Note Date/Time October 17, 2022 9:28 am [facility] Physical Therapy [facility] [address] [place] [address] / REHABILITATION SERVICES DISCHARGE SUMMARY MR#: [id number] Acct: [id number] Name: NOHEMI ENGLISH Rep #: [id number] : 1970 51 From: Arnie Peralta DPT, OCS, CSCS Referring Dr.: Dr. Joe Martinez MD Status: REG RCR Insurance: [facility] PACKAGE PLAN [employer] It has been my pleasure to treat NOHEMI ENGLISH referred by Dr. Joe Martinez MD, with the diagnosis of R knee OA for a total of 5 visit(s). Discharge Date: 10/17/22 Please see the following information for a summary of their discharge status. Subjective: Knee doing pretty good. Exercises are going well and still challenged. Surgery is November 26. Pain in knee not bad lately, up to 2/10. Walking helps. No walker yet but will get one with wheels. No steps once she enters house. No questions or concerns for the next month. Activities pretty normal, just hurt at times...could not mow the lawn if she needed to. R knee Pain Intensity (Out of 10): Unrated % Improvement: 60 Objective/Function: Picked up on gait training very quickly and feels like she can practice a little at home and continue current exercises and get along well. Goal 1:: 0-110 AROM to help with steps and gait Goal Progress: Goal Met Goal 2:: Patient feel pain 0-2/10 at worst and 60% better Goal Progress: Goal Met Goal 3:: LEFS score 50 Goal Progress: Goal Met Goal 4:: vaccuum without increased pain Goal Progress: Goal Met Goal 5:: I activitiy modificaitona nd ex to manage bone on bone condition Goal Progress: Goal Met Goal 6:: I wh walker gait for surgery! Goal Progress: Goal Met Plan: d/c Discharge Comments: pt to have surgery in November If there are questions or concerns regarding this patient's physical therapy, please feel free to call me at [phone]. Thank you for the referral of thispatient. Sincerely, Arnie Peralta, DPT, OCS, CSCS Balance/Gait/Functional tests - Balance/Special Test Scores Functional Gait Assessment Score: 28 % Disability: 6.6700 Lower Extremity Functional Score: 50 <Electronically signed by Arnie Peralta DPT, OCS, CSCS> 10/17/22 0928 CC: Dr. Bianka Vogel MD; Dr. Joe Martinez MD ~ EBG Signed [facility] Work Phone: Evaluation note Note Date & Type Note Facility Evaluation note No assessment information availa ble [facility] Work Phone: Summary Purpose Family History Diabetes Mellitus Type II Status:Active Commen ts:aunt Father Status:Active Comments:In good health. Mother Status:Active Comments:In good health. Diabetes Mellitus Type II Status:Active Commen ts:aunt Father Status:Active Comments:In good health. Mother Status:Active Comments:In good health. Diabetes Mellitus Type II Status:Active Commen ts:aunt Father Status:Active Comments:In good health. Mother Status:Active Comments:In good health. Diabetes Mellitus Type II Status:Active Commen ts:aunt Father Status:Active Comments:In good health. Mother Status:Active Comments:In good health. Diabetes Mellitus Type II Status:Active Commen ts:aunt Father Status:Active Comments:In good health. Mother Status:Active Comments:In good health. Diabetes Mellitus Type II Status:Active Commen ts:aunt Father Status:Active Comments:In good health. Mother Status:Active Comments:In good health. Diabetes Mellitus Type II Status:Active Commen ts:aunt Father Status:Active Comments:In good health. Mother Status:Active Comments:In good health. Diabetes Mellitus Type II Status:Active Commen ts:aunt Father Status:Active Comments:In good health. Mother Status:Active Comments:In good health. Diabetes Mellitus Type II Status:Active Commen ts:aunt Father Status:Active Comments:In good health. Mother Status:Active Comments:In good health. Diabetes Mellitus Type II Status:Active Commen ts:aunt Father Status:Active Comments:In good health. Mother Status:Active Comments:In good health. Diabetes Mellitus Type II Status:Active Commen ts:aunt Father Status:Active Comments:In good health. Mother Status:Active Comments:In good health. Diabetes Mellitus Type II Status:Active Commen ts:aunt Father Status:Active Comments:In good health. Mother Status:Active Comments:In good health. Diabetes Mellitus Type II Status:Active Commen ts:aunt Father Status:Active Comments:In good health. Mother Status:Active Comments:In good health. Diabetes Mellitus Type II Status:Active Commen ts:aunt Father Status:Active Comments:In good health. Mother Status:Active Comments:In good health. Diabetes Mellitus Type II Status:Active Commen ts:aunt Father Status:Active Comments:In good health. Mother Status:Active Comments:In good health. Diabetes Mellitus Type II Status:Active Commen ts:aunt Father Status:Active Comments:In good health. Mother Status:Active Comments:In good health. Diabetes Mellitus Type II Status:Active Commen ts:aunt Father Status:Active Comments:In good health. Mother Status:Active Comments:In good health. Diabetes Mellitus Type II Status:Active Commen ts:aunt Father Status:Active Comments:In good health. Mother Status:Active Comments:In good health. Advance Directives Advance Directive Response Recorded Date/ Time Living Will No November 12, 2022 9:22am Power of Drum Filler No November 12 9:22am Chief Complaint and Reason for Visit Chief Complaint OA RT KNEE. RX HERE Chief Complaint OA RT KNEE. RX HERE RT KNEE VARUS DEFORMITY *MEGGAN* Chief Complaint OA RT KNEE. RX HERE RT KNEE VARUS DEFORMITY *MEGGAN* PREOP RT TOTAL KNEE W MEGGAN Additional Source Comments INFORMATION SOURCE (unrecogn ized section and content) DATE CREATED AUTHOR 04/15/2021 [facility] DATE CREATED AUTHOR AUTHOR'S ORGANIZ ATION 05/18/2022 [facility] DATE CREATED AUTHOR AUTHOR'S ORGANIZ ATION 02/06/2023 [facility] DATE CREATED AUTHOR AUTHOR'S ORGANIZ ATION 10/29/2024 [facility] Care Teams (unrecognized sec tion and content) Team Status: Active Member Role Status Dates Dr. Bianka Vogel MD Primary Care Provider Active Team Status: Active Member Role Status Dates Dr. Bianka Vogel MD Primary Care Provider Active Dr. Roberto Carlos Jay MD Attending Provider Activ e Dr. Joe Martinez MD Referring Provider Active Team Status: Inactive Member Role Status Dates Dr. Bianka Vogel MD Primary Care Provider Active Dr. Joe Martinez MD Attending Provider Active Team Status: Inactive Member Role Status Dates Dr. Bianka Vogel MD Primary Care Provider Active Dr. Joe Martinez MD Attending Provider, Referring P cristian Active Team Status: Active Member Role Status Dates Dr. Bianka Vogel MD Primary Care Provider Active Dr. Joe Martinez MD Attending Provider, Referring P cristian Active Goals (unrecognized section and content) Goals may be documented in a n alternate sectionGoals may be documented in an alternate sectionGoals may be documented in an alternate sectionGoals may be documented in an alternate section FOR RECORDS PERTAINING TO PATIENTS WHO ARE OR HAVE BEEN ENROLLED IN A CHEMICAL DEPENDENCY/SUBSTANCEABUSE PROGRAM, SOME INFORMATION MAY BE OMITTED. This clinical summary was aggregated from multiple sources. Caution should be exercised in using it in the provision of clinical care. This summary normalizes information from multiple sources, and as a consequence, information in this document may materially change the coding, format and clinical context of patient data. In addition, data may be omitted in some cases. CLINICAL DECISIONS SHOULD BE BASED ON THE PRIMARY CLINICAL RECORDS. [employer] provides no warranty or guarantee of the accuracy or completeness of information in this document.
--- NOTE | 2025-02-02 19:25 | PCM.HP.STD ---
HPI - General General Date of Admission: 02/02/25 Date of Service: 02/02/25 Chief Complaint: Fever/chills and chest/shoulder discomfort HPI Narrative SACHI ZULUAGA, is a 54 F who initially presented to [facility] ED on the morning of 02/02/25 with fever/chills and chest/shoulder discomfort. Medical history significant for type 2 diabetes mellitus and hypertension, is only on long-acting insulin and metoprolol daily. Patient noted that she had a tooth infection and completed antibiotics for this about 2 weeks ago with good improvement. She was feeling well until about 3 to 4 days ago when she began to notice intermittent epigastric discomfort, heartburn and intermittent shoulder discomfort. She is [place] and rides her bike frequently, denies any recent falls or trauma. Notes that she has had heartburn in the past and her symptoms felt somewhat similar to this. In the ED there she was found to have a low-grade fever. Lab and imaging findings as noted below. Importantly, she was found to have uptrending troponins while there. EKG showed normal sinus rhythm with no ST changes noted per ED physician. Chest x-ray was unremarkable. UA was mildly positive concerning for UTI, though patient denies any UTI symptoms. They have limited Cardiology services there so they asked for patient to be transferred to our hospital. I saw the patient shortly after arrival to the floor here, was present. Patient was mildly fatigued appearing but otherwise sitting back comfortably in bed, conversing normally, in no acute distress. She currently denies any fevers or chills but does note that she has felt intermittent fevers and chills yesterday night and especially over the course of today. She was wearing a home blanket while laying in bed but did not appear uncomfortable or diaphoretic. She denied any current chest pain or shoulder pain/discomfort. She does report generalized abdominal discomfort over the past few days. Denies any change in stools. States her pain has been somewhat diffuse but also notable in the epigastric region. She denies any other pain or discomfort and was asking to eat some food if able. No other acute concerns currently. Outside labs/imaging: CBC? WBC 10.2, hemoglobin 12.5, MCV 84, platelets 295, 77% neutrophils CMP-sodium 132, potassium 3.5, chloride 98, CO2 24, BUN 17, creatinine 1.06, glucose 217, T. bili 1.3, AST 21, ALT 47, alk phos 151, albumin 2.8 Troponins- 88 > 98 > 106 Lactate- 1.2 COVID and flu- negative UA- 100 protein, 100 leukocyte esterase, negative nitrites, greater than 50 WBCs, 1+ bacteria CXR- unremarkable EKG- NSR, no ST changes noted [facility] Medical History (Updated 02/02/25 @ 20:[address] Delvis Diego, DO) Wears glasses Post-menopausal Insulin dependent diabetes mellitus Diabetes Arthritis History of pain when walking Hypertension Home Medications ?Medication ?Instructions ?Recorded ?Last Taken ?Type Barley 1 tsp PO/SL DAILY 11/12/22 Unknown History Curalin Glucose Support 1 tab PO/SL DAILY 11/12/22 Unknown History insulin glargine 100 unit/mL 14 unit subcut QPM 11/12/22 Unknown History subcutaneous solution lisinopril 20 mg tablet 20 mg PO DAILY 11/12/22 Unknown History Allergy/AdvReac Type Severity Reaction Status Date / Time No Known Allergies Allergy Verified 11/12/22 09:04 Surgical History (Updated 11/12/22 @ 09:22 by Louise Hurtado) History of laparoscopic cholecystectomy Social History Smoking Status: Never smoker ROS Constitutional Constitutional: Reports chills, fatigue and fever(s); Denies weakness Eyes Eyes: Denies change in vision Cardiovascular Cardiovascular: Reports chest pain; Denies dyspnea on exertion, edema, lightheadedness or palpitations Respiratory/Chest Respiratory/Chest: Denies cough, productive cough, shortness of breath at rest, shortness of breath with exertion or wheezing Gastrointestinal Gastrointestinal: Reports abdominal pain and dyspepsia; Denies constipation, diarrhea, nausea or vomiting Genitourinary Genitourinary: Denies burning urination, difficulty urinating or dysuria Musculoskeletal Musculoskeletal: Denies arthralgias or myalgias Neurologic Neurologic: Denies dizziness, focal weakness or headache(s) Physical Exam Const alert, oriented x3 and no apparent distress Constitutional Narrative: [place] middle-aged female, obese, mildly fatigued appearing but otherwise sitting back comfortably in bed, conversing normally and in no acute distress. General Appearance: cooperative and comfortable HEENT normocephalic, head/scalp atraumatic, hearing grossly normal bilaterally, nasal mucous membranes and turbinates normal and moist oral mucous membranes Eyes PERRL, EOMs intact bilaterally and conjunctivae normal Neck full ROM Chest inspection of chest normal Resp normal respiratory effort, normal air movement, no use of accessory muscles and clear to auscultation bilaterally Cardio regular rate, regular rhythm and peripheral pulses 2+ throughout Cardio Narrative: Possible systolic murmur noted. GI normal to inspection, nondistended, normoactive bowel sounds, soft to palpation, non-tender and non-distended Back/Spine normal ROM Extremity normal to inspection, full ROM and no pedal edema Skin no rashes or lesions noted Neuro moves all extremities and no focal motor deficits Speech: speech normal Motor Exam: strength 5/5 throughout Psych mental status grossly normal Assessment & Plan Assessment/Plan (1) Fever and chills: (2) Elevated troponin: PLAN: Plan Patient is a 54-year-old female who presented to [facility] on 02/02/2025 as a transfer from [facility] for fevers/chills with unclear source of infection and elevated troponins. 1. Fever/chills with concern for UTI versus unclear source of infection ? Admit under admission status to PCU. Febrile to 102F on arrival here. Borderline elevated WBC count 10 with neutrophil predominance at OSH. UA mildly infectious appearing but patient without UTI symptoms. Chest x-ray unremarkable. COVID/flu negative and no recent URI symptoms. Has had generalized abdominal discomfort with epigastric pain over the past several days. No clear source of infection at this time. Notably did have a dental infection about 2 weeks ago and completed antibiotics for this. On my exam, had concern for a possible systolic murmur. CT abdomen pelvis with IV contrast ordered. Blood cultures ordered. Repeat UA with urine culture ordered. Echo ordered as below. Will treat with IV vancomycin and Zosyn for now. Mildly hypertensive on admit here and lactate was normal at OSH, will hold on IV fluids. Monitor closely. 2. Elevated troponins ? Troponin trend 88 > 98 > 106 at OSH. EKG reportedly with normal sinus rhythm and no ST changes. Patient with vague chest/shoulder/epigastric discomfort noted but she specifically denies any worsening of symptoms with exertion and denies any shortness of breath. Echo ordered for further evaluation. Can consider ordering stress test but will hold off on this for now. 3. Type 2 diabetes mellitus ? Blood glucose 217 at OSH. On home Lantus 60 units at night. A1c ordered. Will treat with Lantus 30 units at night and Humalog sliding scale with meals, adjust as needed. 4. Hypertension ? Continue home Toprol 50 mg daily. DVT prophylaxis: Lovenox CODE STATUS: Full code, verified Expected disposition: TBD Total clinical time spent by myself addressing the patient's medical issues, reviewing all the data, and collaborating with patient's care team: 75 minutes. Charges/Coding Visit Charges Inpatient E&M: 92953 Init Hosp L3
--- NOTE | 2025-02-02 19:29 | ECHOCS_ITS ---
Reason For Study Reason For Study: CHEST PAIN Procedure This was a 2D Doppler, Color Flow transthoracic echocardiogram. The study was technically difficult. Due to suboptimal apical imaging windows. Contrast injection was performed. Exam performed portable in patient room. Left Ventricle Normal LV size. The estimated ejection fraction is 65 %. No evidence for diastolic dysfunction. No regional wall motion abnormalities noted. Right Ventricle Normal RV size. Normal systolic function. Atria The left atrium is mildly enlarged. Normal right atrium. No doppler evidence for ASD. Mitral Valve There is no mitral valve stenosis. Trivial mitral valve insufficiency. Tricuspid Valve There is no tricuspid stenosis. Unable to estimate RV systolic pressure due to inadequate jet, pulmonary artery pressure probably normal. Aortic Valve Trisinus/trileaflet aortic valve. There is no aortic stenosis. No aortic valve insufficiency. Pulmonic Valve There is no pulmonic valvular stenosis. No pulmonic valve insufficiency. Great Vessels Normal sized aortic root. Pericardium/Pleural No pericardial effusion. Medication Diluted definity 3.0ml given slow IV push to enhance endocardial definition. MMode/2D Measurements & Calculations LVIDd: 4.9 cm IVSd: 1.0 cm Ao root diam: 3.1 cm LVIDs: 3.3 cm LVPWd: 1.0 cm RVDd: 3.3 cm FS: 32.0 % LAV(MOD-bp): 72.5 ml LVAd ap4: 29.3 cm2 SV(MOD-sp4): 49.3 ml LAV(MOD-bp) Indexed: 35.6 ml/m2 LVLd ap4: 8.5 cm SI(MOD-sp4): 24.2 ml/m2 LAV(MOD-sp2): 69.2 ml EDV(MOD-sp4): 84.7 ml LAV(MOD-sp4): 69.2 ml EDV(sp4-el): 85.0 ml LVAs ap4: 17.5 cm2 LVLs ap4: 7.6 cm ESV(MOD-sp4): 35.4 ml ESV(sp4-el): 34.1 ml EF(MOD-sp4): 58.2 % EF(sp4-el): 59.9 % SV(sp4-el): 50.9 ml LA A4 area: 22.1 cm2 LA dimension(2D): 3.8 cm RA A4 area: 15.3 cm2 Time Measurements MV dec time: 0.19 sec Doppler Measurements & Calculations MV E max max: 116.7 cm/sec Lat Peak E' Max: 13.1 cm/sec Med Peak E' Max: 13.8 cm/sec MV A max max: 78.1 cm/sec E/E' lat: 8.9 E/E' med: 8.5 MV E/A: 1.5 MV V2 max: 132.9 cm/sec MV P1/2t max max: 126.0 cm/sec Ao V2 max: 167.2 cm/sec MV max P.1 mmHg MV P1/2t: 61.0 msec Ao max P.2 mmHg MV V2 mean: 71.7 cm/sec MV dec slope: 604.6 cm/sec2 Ao V2 mean: 103.0 cm/sec MV mean P.4 mmHg MVA(P1/2t): 3.6 cm2 Ao mean P.8 mmHg MV V2 VTI: 33.9 cm Ao V2 VTI: 31.9 cm AV (velocity ratio): 0.66 LV V1 max: 105.0 cm/sec PA V2 max: 92.3 cm/sec LV V1 max P.4 mmHg PA V2 mean: 66.1 cm/sec LV V1 mean P.0 mmHg LV V1 mean: 65.4 cm/sec LV V1 VTI: 20.9 cm ECHO/Echo Complete W/ Contrast Interpretation Summary The estimated ejection fraction is 65 %. No evidence for diastolic dysfunction. The left atrium is mildly enlarged. Trivial mitral valve insufficiency. Ordering Physician: Delvis Diego Referring Physician: Trung Gee Performed By: Malina Mcdonnell RDCS, RVT
--- NOTE | 2025-02-02 19:37 | CT_ITS ---
PROCEDURE: ABDOMEN/PELVIS W IV CONT ONLY 02/02/2025 REASON FOR EXAM: FEVERS W/ ABD PAIN Left flank pain and urinary tract infection diabetes treated with insulin, hypertension and history of laparoscopic cholecystectomy. TECHNIQUE: ABDOMEN/PELVIS W IV CONT ONLY. Coronal and Sagittal reconstruction series were provided. CONTRAST: Isovue-300 VOLUME: 100 mL One or more dose reduction techniques were used (e.g., Automated exposure control, adjustment of the mA and/or kV according to patient size, use of iterative reconstruction technique. RADIATION DOSE SUMMARY: CTDlvol: 9.97 in 23.98 mGy DLP: 1232.96 mGycm COMPARISON: None FINDINGS: Lung bases: Unremarkable The liver, gallbladder, spleen, pancreas, adrenal glands and kidneys are unremarkable. No hydronephrosis. No stones detected Bladder: Unremarkable. Reproductive Organs: Unremarkable. Bowel: Normal caliber and appearance. Appendix: No inflammatory process in the right lower quadrant. Lymph nodes: No adenopathy. Vasculature: No aortoiliac calcific plaque. Peritoneum / Retroperitoneum: No free air or free fluid. Bones: No aggressive bone lesion CT/Abdomen/Pelvis W IV Cont ONLY IMPRESSION: No acute process detected [facility]
--- NOTE | 2025-02-02 19:45 | EKG12_ITS ---
Test Reason : cp Blood Pressure : */* mmHG Vent. Rate : 80 BPM Atrial Rate : 80 BPM P-R Int : 182 ms QRS Dur : 88 ms QT Int : 366 ms P-R-T Axes : 59 26 39 degrees QTcB Int : 422 ms Normal sinus rhythm Normal ECG When compared with ECG of 17-Nov-2022 08:15, No significant change was found Confirmed by DEBBIE CABEZAS, STELLA ([id number]), city editor CYRUS GARZA ([id number]) on 02/07/2025 6:39:12 AM Referred By: Confirmed By: STELLA LEWIS MD
[2025-02-02 20:05] VITALS: BMI 45.2
[2025-02-02] MEDS: 0.9% Saline Lock 10 ML Syringe IV (20:50)
[2025-02-02] MEDS: Piperacil/Tazobactam 3.375 GM in 0.9% Normal Saline (50mL MB+) 50 ML IV (20:50)
[2025-02-02 20:55] VITALS: BP 155/70; PULSE 79; RESP 16; TEMP 37.7; O2SAT 99
[2025-02-02 21:08] LABS: Absolute Lymphocyte Count 1.99 X10^3/uL (0.83-4.51); Basophil# 0.03 X10^3/uL; Basophil% 0.3 % (0-1); Eosinophil# 0.02 X10^3/uL; Eosinophils% 0.2 % (0-5); Hematocrit 33.5 % (37-47); Hemoglobin 11.3 g/dL (12.0-15.0); Lymphocyte # 1.99 X10^3/ul (0.83-4.51); Mean Corp Hgb Conc 33.7 g/dL (32-36); Mean Corpuscular Hgb 28.5 pg (27.0-32.0); Mean Corpuscular Volume 84.6 fL (81-99); Mean Platelet Vol. 10.4 fl (6.2-12.0); Monocyte# 0.91 X10^3/uL; Monocyte% 9.1 % (0-10); NRBC Flagged by Analyzer 0 % (0-5); Neutrophil # 6.97 X10^3/uL (2.7-7.7); Neutrophil % 69.9 % (47-70); Platelet Count 287 K/mm3 (150-450); RBC Distribution Width CV 14.8 % (11.6-14.6); Red Blood Count 3.96 M/mm3 (4.2-5.4)
[2025-02-02] MEDS: Vancomycin HCl 2,000 MG in 0.9% Normal Saline (500mL Bag) 500 ML 250 MG IV (21:39)
[2025-02-02 21:41] LABS: Troponin T High Sensitivity 19 ng/L (<=14)
[2025-02-02] MEDS: Insulin Glargine-YFGN 100 UNIT/ML Pen 30 UNIT SC (21:41)
[2025-02-02] MEDS: Insulin Lispro 100 UNIT/ML INSULN.PEN SC (21:41)
[2025-02-02 21:42] LABS: ALB/GLOB Ratio 0.8 RATIO (0.9-2.4); AST(SGOT) 29 U/L (<=31); Alanine Aminotransfer ALT/SGPT 42 U/L (<=34); Albumin, Serum 3.3 g/dL (3.5-5.0); Alkaline Phosphatase 157 U/L (35-104); Anion Gap 12 (5-15); BUN 18 mg/dL (4-19); BUN/Creat Ratio 17.1 RATIO (10-20); Calcium,Total 8.6 mg/dL (7.6-11.0); Carbon Dioxide 22.2 mmol/L (21.0-32.0); Chloride 100 mmol/L (98-108); Creatinine, Serum 1.07 mg/dL (0.70-1.20); EST Glomerular Filtration Rate 61 (>60); Estimated Creatinine Clearance 67.64 ml/min (50-250); Globulin 4.1 g/dL (2.2-4.2); Glucose 259 mg/dL (70-99); Hemoglobin A1c 9.3 % (<=5.6); Potassium 3.6 mmol/L (3.3-5.1); Protein, Total 7.4 g/dL (5.9-8.4); Sodium Level 134 mmol/L (133-145); Total Bilirubin 0.73 mg/dL (0.00-1.30)
--- NOTE | 2025-02-02 21:48 | PCM.RX.CS ---
Consult Antibiotic Management Pharmacy has been consulted to manage selected antibiotic: Vancomycin Type of Intervention Type of Consult: New start Labs Labs: Sodium 134 mmol/L (133-145) 02/02/25 20:30 Potassium 3.6 mmol/L (3.3-5.1) 02/02/25 20:30 Chloride 100 mmol/L (98-108) 02/02/25 20:30 Carbon Dioxide 22.2 mmol/L (21.0-32.0) 02/02/25 20:30 Anion Gap 12 (5-15) 02/02/25 20:30 BUN 18 mg/dL (4-19) 02/02/25 20:30 Creatinine 1.07 mg/dL (0.70-1.20) 02/02/25 20:30 Est GFR (MDRD) Non-Af 61 (>60) 02/02/25 20:30 BUN/Creatinine Ratio 17.1 RATIO (10-20) 02/02/25 20:30 Glucose 259 mg/dL (70-99) H 02/02/25 20:30 Dosing Weight Weight used for dosin kg Estimated Creatinine Clearance Estimated Creatinine Clearance: 68 Goal Trough Goal Trough: 15-20 mcg/mL Pharmacy Plan for Drug Dosing Pharmacy Plan for Drug Dosing: Pharmacy Service will continue to monitor and adjust dosing as required. Follow-Up Labs Follow-Up Labs: Trough: Vancomycin Date/Time Labs Ordered Labs to be done on [date and time ordered]: 02/04/25 @0900
[2025-02-02 22:15] LABS: Bacteria 0 SEEN /hpf (None Seen); Mucous, Urine 0 SEEN /hpf (<or=2+)
[2025-02-02 22:43] LABS: Bedside Glucose 244 mg/dL (74-106)
[2025-02-02 22:51] LABS: Color, Urine Yellow (Yellow); Glucose, Dipstick Normal (Normal); Ketone-Dipstick Negative (Negative); Leukocyte Esterase-Dipstick 25 /ul (Negative); Nitrite-Dipstick Negative (Negative); Occult Blood-Urine 25 /ul (Negative); Protein-Dipstick 30 mg/dl (Negative); Specific Gravity, Urine 1.005 (1.002-1.030); Urine Bilirubin Dipstick Negative (Negative); Urine Clarity Clear (Clear); Urine Urobilinogen 1 mg/dl (Normal); Urine pH 6.5 (5.0 - 8.0)
[2025-02-02 23:00] LABS: Red Blood Cells-Urine 0-5 SEEN /hpf (0-5); Squamous Epithelial Cells - UA 0-5 SEEN /hpf (5-10); White Blood Cells 0-5 SEEN /hpf (0-5)
[2025-02-02 23:50] LABS: Troponin T High Sens 2 HR 19 ng/L (<=14)
[2025-02-03 01:22] LABS: Absolute Neutrophil Count 6.5 X10^3/uL (2.0-7.7); Basophil# 0.03 X10^3/uL; Basophil% 0.3 % (0-1); Eosinophil# 0.02 X10^3/uL; Eosinophils% 0.2 % (0-5); Hematocrit 32.5 % (37-47); Hemoglobin 10.9 g/dL (12.0-15.0); Lymphocyte % 22.1 % (19-41); Mean Corp Hgb Conc 33.5 g/dL (32-36); Mean Corpuscular Volume 83.5 fL (81-99); Mean Platelet Vol. 10.1 fl (6.2-12.0); Monocyte# 0.87 X10^3/uL; Monocyte% 9.1 % (0-10); NRBC Flagged by Analyzer 0 % (0-5); Neutrophil # 6.45 X10^3/uL (2.7-7.7); Neutrophil % 67.8 % (47-70); Platelet Count 272 K/mm3 (150-450); RBC Distribution Width CV 14.7 % (11.6-14.6); RBC Distribution Width SD 44.8 fl (35.1-43.9); Red Blood Count 3.89 M/mm3 (4.2-5.4); White Blood Count 9.5 K/mm3 (4.4-11.0)
[2025-02-03 01:48] VITALS: BP 144/64; PULSE 81; RESP 16; TEMP 38.2; O2SAT 96
[2025-02-03 01:50] LABS: Troponin T High Sens 4 HR 22 ng/L (<=14)
[2025-02-03] MEDS: Acetaminophen 325 MG Tablet 650 MG PO (01:58)
[2025-02-03 02:43] LABS: ALB/GLOB Ratio 0.9 RATIO (0.9-2.4); AST(SGOT) 24 U/L (<=31); Alanine Aminotransfer ALT/SGPT 35 U/L (<=34); Albumin, Serum 3.2 g/dL (3.5-5.0); Alkaline Phosphatase 149 U/L (35-104); Anion Gap 14 (5-15); BUN 17 mg/dL (4-19); BUN/Creat Ratio 14.4 RATIO (10-20); Calcium,Total 8.3 mg/dL (7.6-11.0); Carbon Dioxide 19.8 mmol/L (21.0-32.0); Chloride 104 mmol/L (98-108); Creatinine, Serum 1.16 mg/dL (0.70-1.20); EST Glomerular Filtration Rate 56 (>60); Estimated Creatinine Clearance 62.39 ml/min (50-250); Globulin 3.5 g/dL (2.2-4.2); Glucose 205 mg/dL (70-99); Potassium 3.4 mmol/L (3.3-5.1); Protein, Total 6.7 g/dL (5.9-8.4); Sodium Level 138 mmol/L (133-145); Total Bilirubin 0.72 mg/dL (0.00-1.30)
[2025-02-03 03:00] VITALS: BP 144/75; PULSE 70; RESP 16; TEMP 36.9; O2SAT 98
[2025-02-03] MEDS: Piperacil/Tazobactam 3.375 GM in 0.9% Normal Saline (50mL MB+) 50 ML IV ×2 (05:45→14:03)
--- NOTE | 2025-02-03 05:55 | EKG12_ITS ---
Test Reason : AM EKG Blood Pressure : */* mmHG Vent. Rate : 65 BPM Atrial Rate : 65 BPM P-R Int : 194 ms QRS Dur : 92 ms QT Int : 414 ms P-R-T Axes : 38 22 24 degrees QTcB Int : 430 ms Normal sinus rhythm Normal ECG When compared with ECG of 02-Feb-2025 20:14, MANUAL COMPARISON REQUIRED DATA IS UNCONFIRMED Confirmed by DEBBIE CABEZAS, STELLA ([id number]), city editor CYRUS GARZA ([id number]) on 02/07/2025 6:39:00 AM Referred By: Confirmed By: STELLA LEWIS MD
[2025-02-03 07:38] LABS: Bedside Glucose 137 mg/dL (74-106)
[2025-02-03 08:23] VITALS: BP 140/67; PULSE 70; RESP 16; TEMP 37; O2SAT 97
[2025-02-03] MEDS: Vancomycin HCl 1,250 MG in 0.9% Normal Saline (250mL Bag) 250 ML 167 MG IV (10:43)
[2025-02-03] MEDS: Insulin Lispro 100 UNIT/ML INSULN.PEN SC ×3 (12:08→22:07)
[2025-02-03 12:13] LABS: Bedside Glucose 188 mg/dL (74-106)
--- NOTE | 2025-02-03 13:46 | CASEMGMT ---
BARBI GRIMES Assessment Face to Face with patient for initial transition planning/care coordination assessment. BARBI GRIMES introduced self and role at [facility], pt voices understanding. Pt is A&Ox4 and is resting comfortably in bed and is calm. Pt at bedside. Care providers, pharmacy, and demographics verified. Admitting dx: CP PCP: Trung Gee Specialists: Denies Preferred Pharmacy: [facility] Insurance: License Acquisitions Prescription Benefit: Yes LNOK: Abdiel English (H) Living Arrangements: Pt lives with her and 2 adult children in a 2 story home with 4 steps to enter ADLs/IADLs: Indep Transportation: horse and buggy, bikes. Pt plans to hire a port cdl a driver @ [facility] DME: Functioning BGM with sufficient supplies and pen needles HHC/SNF: Denies. Pt has been to OP PT through [facility] Pt?s goal: Home Plan: home with pt , anticipate no additional needs at this time. 6-Click score is 24. At this time, the pt states that she feels safe returning home with her SO and children and denies further concerns. Report given to DYEING MACHINE TENDER CM. Loraine Dykes RN, CM
[2025-02-03 14:20] VITALS: BP 151/72; PULSE 76; RESP 14; TEMP 36.6; O2SAT 99
--- NOTE | 2025-02-03 15:11 | CHAPLAIN ---
Type of Pastoral Visit __x_ Initial Visit ___ Follow-up Visit ___ On-call Visit ___ General Patient Visit ___ Spiritual Assessment ___ Family Conference ___ Bereavement ___ Rapid Response ___ Code Blue ___ Other (describe below) Pastoral Care Referral From _x__ Patient ___ Family ___ Nurse ___ Physician ___ Funeral Service Practitioner/Embalmer ___ Shipfitter Apprentice ___ Other (describe below) Sacrament/Intervention _x__ Active listening ___ Anointing ___ Yazidism ___ Bereavement ___ Communion ___ Angeli exploration ___ ___ Life review _x__ Prayer ___ Reconciliation ___ Sacrament of Sick ___ Supportive presence ___ Wedding ___ Other (describe below) Pastoral Comments patient and her spouse are walking in the hallway and are about to reenter room; offer of supportive visit given and well received by both; pt and spouse both answers questions and list reasons for the admission and following tests; pt has been in the hospital before and declares that she is not stressed; both are hopeful about going home once tests are done; both welcome a prayer for support
[2025-02-03 17:14] LABS: Bedside Glucose 203 mg/dL (74-106)
--- NOTE | 2025-02-03 17:16 | PCM.PN.HOSP ---
Reason for Visit Reason for Visit: Diagnoses Fever, unspecified (02/02/25) Other specified abnormal findings of blood chemistry (02/02/25) Subjective Subjective Patient resting in bed, still feels a little unwell overall but is improved from yesterday, denies any chest pain or burning or shoulder pain, reports last time she had any of that burning feeling was Thursday and it felt similar to GERD in the past, the shoulder pain was what was new but she had seen the chiropractor around that time who said that she has a tight muscle and both of these have completely resolved. Patient does report before she came into the hospital she had urinary urgency, denies any shortness of breath or any other acute complaints Objective Data Objective Data Vital Signs: Vital Signs Temp Pulse Resp BP Pulse Ox O2 Del Method 97.9 F 76 14 151/72 H 99 Room Air 02/03/25 14:20 02/03/25 14:20 02/03/25 14:20 02/03/25 14:20 02/03/25 14:20 02/03/25 15:21 Oxygen Delivery Method Room Air Weight: 108.6 kg Body Mass Index (BMI) 45.2 Intake & Output: Intake and Output for Last 24 Hours 02/01/25 02/02/25 02/03/25 23:59 23:59 23:59 Intake Total 590 / 590 325 / 325 Balance 590 / 590 325 / 325 Lab / Micro Data 02/03/25 01:02 02/03/25 01:02 Labs: Laboratory Results - last 24 hr 02/02/25 20:30: WBC 10.0, RBC 3.96 L, Hgb 11.3 L, Hct 33.5 L, MCV 84.6, MCH 28.5, MCHC 33.7, RDW Std Deviation 46.0 H, RDW Coeff of Tamika 14.8 H, Plt Count 287, MPV 10.4, Immature Gran % (Auto) 0.500, Neut % (Auto) 69.9, Lymph % (Auto) 20.0, [place] % (Auto) 9.1, Eos % (Auto) 0.2, Baso % (Auto) 0.3, Absolute Neuts (auto) 7.0, Absolute Lymphs (auto) 1.99, Nucleated RBC % 0, Sodium 134, Potassium 3.6, Chloride 100, Carbon Dioxide 22.2, Anion Gap 12, BUN 18, Creatinine 1.07, Estim Creat Clear Calc 67.64, Est GFR (MDRD) Non-Af 61, BUN/Creatinine Ratio 17.1, Glucose 259 H, Hemoglobin A1c 9.3 H, Calcium 8.6, Total Bilirubin 0.73, AST 29, ALT 42 H, Alkaline Phosphatase 157 H, Troponin T High Sens 19 H, Total Protein 7.4, Albumin 3.3 L, Globulin 4.1, Albumin/Globulin Ratio 0.8 L 02/02/25 21:20: Urine Color Yellow, Urine Clarity Clear, Urine pH 6.5, Ur Specific [place] 1.005, Urine Protein 30 H, Urine Glucose (UA) Normal, Urine Ketones Negative, Urine Occult Blood 25 H, Urine Nitrite Negative, Urine Bilirubin Negative, Urine Urobilinogen 1 H, Ur Leukocyte Esterase 25 H, Urine RBC 0-5 SEEN, Urine WBC 0-5 SEEN, Ur Squamous Epith Cells 0-5 SEEN, Urine Bacteria 0 SEEN, Urine Mucus 0 SEEN 02/02/25 21:38: POC Glucose 244 H 02/02/25 23:00: Troponin T Hi Sens 2 Hr 19 H 02/03/25 01:02: WBC 9.5, RBC 3.89 L, Hgb 10.9 L, Hct 32.5 L, MCV 83.5, MCH 28.0, MCHC 33.5, RDW Std Deviation 44.8 H, RDW Coeff of Tamika 14.7 H, Plt Count 272, MPV 10.1, Immature Gran % (Auto) 0.500, Neut % (Auto) 67.8, Lymph % (Auto) 22.1, [place] % (Auto) 9.1, Eos % (Auto) 0.2, Baso % (Auto) 0.3, Absolute Neuts (auto) 6.5, Absolute Lymphs (auto) 2.10, Nucleated RBC % 0, Sodium 138, Potassium 3.4, Chloride 104, Carbon Dioxide 19.8 L, Anion Gap 14, BUN 17, Creatinine 1.16, Estim Creat Clear Calc 62.39, Est GFR (MDRD) Non-Af 56 L, BUN/Creatinine Ratio 14.4, Glucose 205 H, Calcium 8.3, Total Bilirubin 0.72, AST 24, ALT 35, Alkaline Phosphatase 149 H, Troponin T Hi Sens 4Hr 22 H, Total Protein 6.7, Albumin 3.2 L, Globulin 3.5, Albumin/Globulin Ratio 0.9 02/03/25 07:00: POC Glucose 137 H 02/03/25 11:55: POC Glucose 188 H 02/03/25 16:49: POC Glucose 203 H Radiography Diagnostic Testing: Radiology Impression Echocardiogram 02/02/25 19:29 Interpretation Summary The estimated ejection fraction is 65 %. No evidence for diastolic dysfunction. The left atrium is mildly enlarged. Trivial mitral valve insufficiency. Ordering Physician: Delvis Diego Referring Physician: Trung Gee Performed By: Malina Mcdonnell, VIRY, RVT Abdomen/Pelvis CT 02/02/25 19:37 IMPRESSION: No acute process detected Reading Location: [facility] Physical Exam Narrative General: Alert, oriented, no apparent distress HEENT: Atraumatic, normocephalic Eyes: Anicteric, normal conjunctiva, extraocular movements grossly intact Neck: Supple Respiratory: Clear to auscultation bilaterally, normal respiratory effort Cardiovascular: Regular rate and rhythm GI: Soft, nontender, nondistended Extremities: No edema Musculoskeletal: Moving all extremities Neuro: No overt focal neurological deficits Skin: No rashes appreciated Psych: Cooperative Assessment & Plan Assessment/Plan (1) Fever and chills: PLAN: Plan # Fevers/chills/generalized weakness suspect secondary to UTI - UA at outlying facility with leuk esterase, white blood cells, and 1+ bacteria - Urine culture was obtained here - Patient was started on vancomycin and Zosyn, no other nidus of infection given UA suggestive of UTI with urinary symptoms will de-escalate antibiotics to Rocephin # Elevated troponin - At outlying facility with max troponin of 106, here troponins 19 - Patient reports her last episode of epigastric burning was Thursday and was similar to previous episodes of GERD in the past and that her shoulder pain was thought to be musculoskeletal as she was recently evaluated for this by a chiropractor, the symptoms have completely resolved, suspect the elevation is due to patient's underlying infection/illness and that this is not a primary event - Echo with no acute abnormalities #Type 2 diabetes mellitus -Glucose checks and sliding scale insulin - Continue long-acting insulin #DVT ppx: Lovenox subcu Terrie Camarillo MD Time spent in the patient's overall evaluation, decision-making process, review of diagnostic data, adjustment of management, discussion with other providers, nursing and ancillary staff involved in patient's care documentation, 36 Minutes Charges/Coding Visit Charges Inpatient E&M: 59450 Subs Hosp L2
[2025-02-03 19:00] VITALS: PULSE 75
[2025-02-03 20:38] VITALS: BP 145/73; PULSE 78; RESP 16; TEMP 36.9; O2SAT 99
[2025-02-03] MEDS: Insulin Glargine-YFGN 100 UNIT/ML Pen 30 UNIT SC (22:08)
[2025-02-03 22:48] LABS: Bedside Glucose 256 mg/dL (74-106)
[2025-02-04 06:05] VITALS: BP 139/79; PULSE 68; RESP 16; TEMP 36.8; O2SAT 98
[2025-02-04 06:53] LABS: Absolute Lymphocyte Count 3.11 X10^3/uL (0.83-4.51); Absolute Neutrophil Count 4.2 X10^3/uL (2.0-7.7); Basophil# 0.03 X10^3/uL; Basophil% 0.4 % (0-1); Eosinophil# 0.13 X10^3/uL; Eosinophils% 1.6 % (0-5); Hematocrit 32.3 % (37-47); Hemoglobin 10.7 g/dL (12.0-15.0); Lymphocyte # 3.11 X10^3/ul (0.83-4.51); Lymphocyte % 37.6 % (19-41); Mean Corp Hgb Conc 33.1 g/dL (32-36); Mean Corpuscular Hgb 28.3 pg (27.0-32.0); Mean Corpuscular Volume 85.4 fL (81-99); Monocyte# 0.72 X10^3/uL; Monocyte% 8.7 % (0-10); NRBC Flagged by Analyzer 0 % (0-5); Neutrophil # 4.23 X10^3/uL (2.7-7.7); Neutrophil % 51.1 % (47-70); POSITIVE MORPHOLOGY YES; Platelet Count 341 K/mm3 (150-450); RBC Distribution Width CV 15.2 % (11.6-14.6); RBC Distribution Width SD 47.8 fl (35.1-43.9); Red Blood Count 3.78 M/mm3 (4.2-5.4); White Blood Count 8.3 K/mm3 (4.4-11.0)
[2025-02-04 06:57] LABS: Differential Indicated SCAN CRITERIA MET
[2025-02-04 06:57] LABS: Bedside Glucose 145 mg/dL (74-106)
[2025-02-04 07:11] VITALS: O2SAT 94
[2025-02-04 07:30] LABS: Anion Gap 12 (5-15); BUN 13 mg/dL (4-19); BUN/Creat Ratio 15.1 RATIO (10-20); Calcium,Total 8.5 mg/dL (7.6-11.0); Carbon Dioxide 23.1 mmol/L (21.0-32.0); Chloride 106 mmol/L (98-108); Creatinine, Serum 0.88 mg/dL (0.70-1.20); EST Glomerular Filtration Rate 77 (>60); Estimated Creatinine Clearance 82.24 ml/min (50-250); Glucose 149 mg/dL (70-99); Potassium 3.5 mmol/L (3.3-5.1); Sodium Level 141 mmol/L (133-145)
[2025-02-04 07:39] LABS: Atypical Lymphocyte 1+ %; Pathologist Review May foll
[2025-02-04 08:30] VITALS: BP 120/61; PULSE 71; RESP 15; TEMP 36.3; O2SAT 99
[2025-02-04 09:32] VITALS: PULSE 71
[2025-02-04] MEDS: Metoprolol(XL)Succ 50 MG Tablet PO (09:32)
[2025-02-04] MEDS: Ceftriaxone 1 GM/50 ML BAG IV (09:34)
--- NOTE | 2025-02-04 10:42 | PCM.DC ---
Discharge Instructions Diet Discharge Diet: Carb Control Diet DC O2, CPAP, BIPAP needs Home O2 Discharge instructions: No Dressing / Incision Discharge Activity: Return to Normal Activity Follow Up Care Test Results: Test results from this visit will be discussed in further detail at your follow-up appointment, if applicable. Discharge Plan Admission Admit Date/Time: 02/02/25 19:26 Primary Reason for Your Visit: Urinary tract infection Attending Provider: Terrie Camarillo Primary Care Provider: Trung Gee Consulting Providers: Delvis Diego Instructions Patient Instructions: Urinary Tract Infections in Women Additional Instructions / Restrictions: DISCHARGE INSTRUCTIONS PLEASE READ *Please take this with you to your next doctors appointment* - You will be discharged on another 7 days of Augmentin 875 mg twice daily which she will start on 02/05/2025 twice daily, this has been sent into the [facility] pharmacy -Please call your primary care provider's office upon discharge to schedule a hospital follow up within 1 week. -For any concerning signs or symptoms please call 911 or proceed to the nearest emergency department Discharge Orders/Prescriptions Prescriptions: New amoxicillin-pot clavulanate 875-125 mg tablet 1 tab PO BID 7 Days Qty: 14 0RF Continued insulin glargine 100 unit/mL Solution 30 unit SUBCUT QPM metoprolol succinate 50 mg tablet extended release 24 hr 50 mg PO DAILY Referrals / Follow Up: Trung Gee MD [Primary Care Provider] - Within 1 Week Disposition Disposition (needs filled in before D/C Order can be placed): Home, Self Care
--- NOTE | 2025-02-04 10:44 | DS.PCM_ITS ---
Providers Date of Admission: 02/02/25 Date of Discharge: 02/04/25 Primary Care Physician: Dr. Trung Gee MD Reason For Visit: Fever and chills Diagnosis Discharge Diagnosis (1) Fever and chills: Status: Acute Code(s): R50.9 - Fever, unspecified (2) Urinary tract bacterial infections: Status: Acute Code(s): N39.0 - Urinary tract infection, site not specified; A49.9 - Bacterial infection, unspecified (3) Insulin dependent diabetes mellitus: Status: Acute Plan # Fevers/chills/generalized weakness suspect secondary to UTI # Elevated troponin suspect elevated d/t underlying febrile illness #Type 2 diabetes mellitus #Morbid obesity Medications at Discharge Home Medications insulin glargine 100 unit/mL subcutaneous solution 30 unit subcut QPM diabetes 11/12/22 metoprolol succinate 50 mg tablet,extended release 24 hr 50 mg PO DAILY hypertension 02/02/25 amoxicillin 875 mg-potassium clavulanate 125 mg tablet 1 tab PO BID 7 days #14 tabs 02/04/25 Hospital Course Summary of Care Provided Minutes Spent on Discharge: 25 Hospital Course: 54-year-old female history of diabetes on insulin, hypertension, presented to [facility] 02/02/2025 from [facility] ED for fever and chills and elevated troponin. She had had some heartburn earlier in the week and had been dealing with some shoulder discomfort which there was concern there could be something cardiac in nature given the troponin around 100 but she is also febrile and UA suggestive of UTI so she was given Rocephin and transferred to [facility]. Reportedly she has a history of reflux symptoms and her reflux earlier in the week felt similar to that, her left shoulder pain she reports she saw a chiropractor and they told her she had a tight muscle, she had no symptoms for multiple days prior to her presentation in the ED and [facility]. She presented there for fevers and urinary urgency with incontinence. At our institution she was placed on broad-spectrum antibiotics initially which were narrowed due to no other nidus of infection found. Her troponins are facility also 119 and echo showed no significant abnormalities or wall motion abnormalities. Patient's fever defervesced on antibiotics and her urinary symptoms completely resolved and she had no further complaints on day of discharge. During this whole time she complained of mild reflux and Tums nor her shoulder pain. On day of discharge attempted to get culture results from [facility] (she received antibiotics before coming to our institution so UA not reflective of UTI and suspect urine culture here will be negative) however I was transferred multiple times and ultimately hung up on. Requested results formally through fax but have not received these. Given patient's significantly improved I do not feel she needs to be kept in the hospital while attempting to get results from an outlying facility. She will be discharged on Augmentin for 7 more days for complicated UTI. Advised that if I receive culture results today from the [facility] that necessitate an antibiotic change (though doubtful) we will call them with this information. Has been reported he can be contacted at [phone]. Patient and comfortable with this plan. Patient with no further urinary symptoms, no further fevers and is vitally stable. Again no further complaints on day of discharge and patient feels well and would like to go home. Physical Exam Narrative General: Alert, oriented, no apparent distress HEENT: Atraumatic, normocephalic Eyes: Anicteric, normal conjunctiva, extraocular movements grossly intact Neck: Supple Respiratory: Clear to auscultation bilaterally, normal respiratory effort Cardiovascular: Regular rate and rhythm GI: Soft, nontender, nondistended Extremities: No edema Musculoskeletal: Moving all extremities Neuro: No overt focal neurological deficits Skin: No rashes appreciated Psych: Cooperative Weight / BMI Weight Weight: 108.6 kg Body Mass Index (BMI) 45.2 ABG / Lab / Microbiology Data 02/04/25 05:56 02/04/25 05:56 Laboratory: Laboratory Results - last 24 hr 02/03/25 11:55: POC Glucose 188 H 02/03/25 16:49: POC Glucose 203 H 02/03/25 22:06: POC Glucose 256 H 02/04/25 05:56: WBC 8.3, RBC 3.78 L, Hgb 10.7 L, Hct 32.3 L, MCV 85.4, MCH 28.3, MCHC 33.1, RDW Std Deviation 47.8 H, RDW Coeff of [place] 15.2 H, Plt Count 341, MPV 10.0, Immature Gran % (Auto) 0.600, Neut % (Auto) 51.1, Lymph % (Auto) 37.6, [place] % (Auto) 8.7, Eos % (Auto) 1.6, Baso % (Auto) 0.4, Absolute Neuts (auto) 4.2, Absolute Lymphs (auto) 3.11, Nucleated RBC % 0, Diff Path Review May foll, Atypical Lymphocytes 1+, Sodium 141, Potassium 3.5, Chloride 106, Carbon Dioxide 23.1, Anion Gap 12, BUN 13, Creatinine 0.88, Estim Creat Clear Calc 82.24, Est GFR (MDRD) Non-Af 77, BUN/Creatinine Ratio 15.1, Glucose 149 H, Calcium 8.5 02/04/25 06:40: POC Glucose 145 H Radiography Diagnostic Testing: Radiology Impression Echocardiogram 02/02/25 19:29 Interpretation Summary The estimated ejection fraction is 65 %. No evidence for diastolic dysfunction. The left atrium is mildly enlarged. Trivial mitral valve insufficiency. Ordering Physician: Delvis Diego Referring Physician: Trung Gee Performed By: Malina Mcdonnell RDCS, RVT D/C Instructions Discharge Diet: Carb Control Diet DC O2, CPAP, BIPAP Needs Home O2 Discharge instructions: No Meaningful Use Info Meaningful Use Meaningful Use Diagnoses (Choose all that apply): None applicable Ischemic Stroke Statin Dosing Therapy Reference: STATIN DOSE THERAPY REFERENCE: * Patients > 75 years receive moderate or high dose statin therapy. * Patients 75 years or YOUNGER should receive HIGH intensity statin dose unless contraindicated. You will be required to document reason for non-treatment if statin daily dose does not meet guidelines. HIGH DOSE STATIN THERAPY DAILY Atorvastatin > than or = to 40 mg Rosuvastatin > than or = to 20 mg Amlodipine + Atorvastatin > than or = to 2.5/40 mg Ezetimibe + Simvastatin 10/80 mg Simvastatin 80mg Discharge Plan Admission Admit Date/Time: 02/02/25 19:26 Primary Reason for Your Visit: Urinary tract infection Attending Provider: Terrie Camarillo Primary Care Provider: Trung Gee Consulting Providers: Delvis Diego Instructions Patient Instructions: Urinary Tract Infections in Women Additional Instructions / Restrictions: DISCHARGE INSTRUCTIONS PLEASE READ *Please take this with you to your next doctors appointment* - You will be discharged on another 7 days of Augmentin 875 mg twice daily which she will start on 02/05/2025 twice daily, this has been sent into the [facility] pharmacy -Please call your primary care provider's office upon discharge to schedule a hospital follow up within 1 week. -For any concerning signs or symptoms please call 911 or proceed to the nearest emergency department Discharge Orders/Prescriptions Prescriptions: New amoxicillin-pot clavulanate 875-125 mg tablet 1 tab PO BID 7 Days Qty: 14 0RF Continued insulin glargine 100 unit/mL Solution 30 unit SUBCUT QPM metoprolol succinate 50 mg tablet extended release 24 hr 50 mg PO DAILY Referrals / Follow Up: Trung Gee MD [Primary Care Provider] - Within 1 Week Disposition Disposition (needs filled in before D/C Order can be placed): Home, Self Care Charges/Coding Visit Charges Inpatient E&M: 47172 Disch Hosp
== END 2025-02-04 11:41 | disposition home or self-care (01) | DRG 690 ==
PROVIDERS: Admitting Provider Hospitalist; PCP Family Medicine; Visit Provider Internal Medicine
DX: N39.0 Urinary tract infection, site not specified (principal); Z68.42 Body mass index [BMI] 45.0-49.9, adult; E11.9 Type 2 diabetes mellitus without complications; I10 Essential (primary) hypertension; E66.01 Morbid (severe) obesity due to excess calories; Z79.4 Long term (current) use of insulin; M25.512 Pain in left shoulder; R79.89 Other specified abnormal findings of blood chemistry; Z11.52 Encounter for screening for COVID-19; R07.9 Chest pain, unspecified; R10.13 Epigastric pain
CPT/HCPCS: 36415; 74177; 80048; 80053; 81001; 82962; 83036; 84484; 85025; 87040; 87086; 87088; 93005; 93306; Q9957; Q9967; A4216; C8929